=== PATIENT | male | born 1960 | race Caucasian/White ===

== ENCOUNTER 2017-09-09 20:16 | Inpatient (IN) | payer OTHER ==
[~2017-09-09] VITALS: Ht 170.2 cm; Wt 100.0 kg
[~2017-09-09 20:16] MED LIST: ETOMIDATE 20 MG INJ ONE; ROCURONIUM 50 MG INJ ONE
[2017-09-09 20:20] VITALS: Ht 170.2 cm; Wt 100.0 kg
--- NOTE | 2017-09-09 20:26 | ERD ---
ER Documentation Chief Complaint Chief Complaint Altered level consciousness HPI The patient is a 57-year-old male, presenting to the ER because of sudden onset of altered level consciousness, witnessed by the family who called 911. EMS was called our our 195 hour, when paramedics arrived, patient had a GCS of 3, he was immediately transported to the emergency department. He is obtunded, unable to protect his airway. He was intubated immediately with any difficulty on first attempt. The history was not obtained from the daughter who was at the bedside. According to her, he does not have any medical history, does not have any surgery, does not take any medication ROS All systems reviewed and are negative except as per history of present illness. Medications Home Meds No Active Prescriptions or Reported Meds Allergies Allergies: Coded Allergies: No Known Allergy (Unverified , 09/09/17) Physical Exam Vitals Vital Signs Date Time Temp Pulse Resp B/P Pulse Ox O2 Delivery O2 Flow Rate FiO2 09/09/17 23:09 106 20 99 50 09/09/17 22:45 112 21 145/89 99 Mechanical Ventilator 09/09/17 21:59 85 26 100 50 09/09/17 21:45 76 23 245/109 100 Mechanical Ventilator 09/09/17 20:55 79 20 100 100 09/09/17 20:45 81 20 232/161 100 Mechanical Ventilator 09/09/17 20:20 81 16 240/108 80 Physical Exam Const: Severe acute distress. Head: Atraumatic. Eyes: Normal Conjunctiva.The pupils are sluggishly reactive to light, no nystagmus ENT: Normal External Ears, Nose and Mouth. Neck: Full range of motion. No meningismus. Resp: Clear to auscultation bilaterally. Cardio: Regular rate and rhythm. Abd: Soft, non distended, normal bowel sounds, non tender. Skin: No petechiae or rashes. Back: No midline or flank tenderness. Ext: No cyanosis, or edema. Neur: Unable to obtain due to his condition Psych: Unable to obtain due to his condition Result Diagram: 09/09/17209909/09/17 2100 Results 24 hrs Laboratory Tests Test 09/09/17 20:22 09/09/17 21:00 09/09/17 21:30 Bedside Glucose 199mg/dL White Blood Count 11.910^3/ul Red Blood Count 4.8010^6/ul Hemoglobin 15.5g/dl Hematocrit 43.9% Mean Corpuscular Volume 91.5fl Mean Corpuscular Hemoglobin 32.3pg Mean Corpuscular Hemoglobin Concent 35.3g/dl Red Cell Distribution Width 12.2% Platelet Count 64510^3/UL Mean Platelet Volume 11.1fl Neutrophils % 54.5% Lymphocytes % 37.0% Monocytes % 6.0% Eosinophils % 1.9% Basophils % 0.3% Nucleated Red Blood Cells % 0.0/100WBC Neutrophils # 6.510^3/ul Lymphocytes # 4.410^3/ul Monocytes # 0.710^3/ul Eosinophils # 0.210^3/ul Basophils # 0.010^3/ul Nucleated Red Blood Cells # 0.010^3/ul Prothrombin Time 12.2Sec Prothrombin Time Ratio 1.0 INR International Normalized Ratio 0.91 Activated Partial Thromboplast Time 24.1Sec Sodium Level 141mmol/L Potassium Level 3.0mmol/L Chloride Level 99mmol/L Carbon Dioxide Level 24mmol/L Anion Gap 21 Blood Urea Nitrogen 12mg/dl Creatinine 0.85mg/dl Glucose Level 237mg/dl Hemoglobin A1c 7.6% Calcium Level 8.5mg/dl Troponin I < 0.012ng/ml Blood Gas Specimen Source Blood arterial Arterial Blood Date Drawn 09/09/2017 9:15:33 PM Arterial Blood pH (Temp corrected) 7.446 Arterial Blood pCO2 (Temp correct) 36.1mmhg Arterial Blood pO2 (Temp corrected) 342.4mmHG Arterial Blood HCO3 24.3mmol/L Arterial Blood Base Excess 0.7mmol/L Arterial Blood Oxygen Saturation 99.6mmHG Chadd Test ACCEPTAB Arterial Blood Gas Puncture Site Right Radial Arterial Blood Carboxyhemoglobin 0% Arterial Blood Methemoglobin 0.5% Blood Gas A-a O2 Differential 334.5mmHg Oxyhemoglobin Percent 99.1% Total Hemoglobin 16.5g/dl Blood Gas Temperature 37.0C Blood Gas Respiration Rate 20.0 Blood Gas Actual Respiration Rate 25 Blood Gas Modality VENT - AC FiO2 100.0% Blood Gas Tidal Volume 500.0mL Blood Gas Low PEEP Setting 5.0cmH2O Blood Gas Notified Whom MA Blood Gas Notified Time 09/09/2017 9:34:21 PM Current Medications Medications (Trade) Dose Ordered Sig/Isabell Route PRN Reason Start Time Stop Time Status Last Admin Dose Admin Mannitol 50 gm 50 gm ONCE ONCE IV* 09/09/17 21:00 09/09/17 21:05 DC 09/09/17 21:40 Levetiracetam 100 ml @ 400 mls/hr ONCE ONCE IVPB 09/09/17 21:00 09/09/17 21:14 DC 09/09/17 21:42 Nicardipine HCl 200 ml @ 50 mls/hr TITRATE IV 09/09/17 21:30 09/09/17 21:53 Mannitol (Mannitol 20%) 250 ml @ 0 mls/hr Q0M IV 09/09/17 21:30 09/09/17 22:14 DC Mannitol 25 gm 25 gm ONCE ONCE IV* 09/09/17 21:30 09/09/17 21:31 DC Propofol 100 ml @ ud STK-MED ONCE .ROUTE 09/09/17 22:04 09/09/17 22:05 DC Mannitol (Mannitol 20%) 125 ml @ 0 mls/hr Q0M IV 09/09/17 22:30 09/09/17 23:30 DC Lidocaine (Xylocaine 1% (Mdv) 20 ml) 20 ml STK-MED ONCE .ROUTE 09/09/17 22:11 09/09/17 22:12 DC Lidocaine/ Epinephrine 20 ml 20 ml ONCE ONCE INJ 09/09/17 22:30 09/09/17 22:31 DC Potassium Chloride 250 ml @ 62.5 mls/hr ONCE ONCE IVPB 09/09/17 23:00 09/10/17 02:59 Potassium Chloride 20 meq/ Sodium Chloride 110 ml @ 55 mls/hr ONCE ONCE IVPB 09/09/17 23:00 09/10/17 00:59 09/09/17 23:52 Sodium Chloride (NS) 1,000 ml @ 70 mls/hr [id number] IV 09/09/17 23:12 Ondansetron HCl (Zofran Inj) 4 mg Q6H PRN IV NAUSEA AND/OR VOMITING 09/09/17 23:30 Acetaminophen (Tylenol Supp) 650 mg Q4H PRN GA PAIN LEVEL 1-3 OR FEVER 09/09/17 23:30 Pantoprazole 40 mg 40 mg DAILY@06 IV 09/10/17 06:00 Nicardipine HCl/ Sodium Chloride (Cardene Iv/NS) 250 ml @ 50 mls/hr PER PROTOCOL IV 09/09/17 23:30 Miscellaneous Information (* Miscellaneous Pharmacy Order) Discontinue current oral sulfonylur... ONCE ONCE XX 09/09/17 23:30 09/09/17 23:46 DC Diagnostic Test (Pha) (Accu-Chek) 1 ea 02 XX 09/10/17 02:00 Miscellaneous Information (* Miscellaneous Pharmacy Order) HYPOGLYCEMIA PROTOCOL w... ONCE ONCE XX 09/09/17 23:30 09/09/17 23:46 DC Insulin Aspart (Novolog Insulin Pen) NOVOLOG *MILD* ALGORI... Q4 SC 09/10/17 01:00 Miscellaneous Information (* Miscellaneous Pharmacy Order) Discontinue all previ... ONCE ONCE XX 09/09/17 23:30 09/09/17 23:46 DC Miscellaneous Information 1 ea NOTE XX 09/09/17 23:45 Glucose (Glutose) 15 gm Q15M PRN PO DECREASED GLUCOSE 09/09/17 23:45 Glucose (Glutose) 22.5 gm Q15M PRN PO DECREASED GLUCOSE 09/09/17 23:45 Dextrose (D50w Syringe) 25 ml Q15M PRN IV DECREASED GLUCOSE 09/09/17 23:45 Dextrose (D50w Syringe) 50 ml Q15M PRN IV DECREASED GLUCOSE 09/09/17 23:45 Glucagon (Glucagen) 1 mg Q15M PRN IM DECREASED GLUCOSE 09/09/17 23:45 Glucose 15 gm 15 gm Q15M PRN BUCCAL DECREASED GLUCOSE 09/09/17 23:45 Potassium Chloride/Dextrose/ Sod Cl (D5-NS + KCl 20 Meq) 1,000 ml @ 100 mls/hr Q10H IV 09/10/17 00:00 Procedures/[place] [id number] Radiology Main Line: [phone] DIAGNOSTIC IMAGING REPORT Patient: DAMIEN BARROW : 1960 Age: 57 Sex: M MR #: [id number] DOS: 09/09/172020 Ordering MD: AJITH EDMONDS MD Location: E/R Room/Bed: PROCEDURE: XR Chest. CLINICAL INDICATION: Shortness of breath. Cerebrovascular accident. Code stroke. TECHNIQUE: Single frontal view. COMPARISON: None. FINDINGS: There is mild atelectasis at the left lung base. The lungs are otherwise clear. The heart is enlarged. There is calcification in the aorta consistent with atherosclerosis. There is no pleural effusion. There is no pneumothorax. IMPRESSION: 1. Mild atelectasis at the left lung base. 2. Cardiomegaly and atherosclerosis. 3. Otherwise unremarkable chest radiograph. RPTAT: QQ .Vel Kong MD, MD Date Time Electronically viewed and signed by .Vel Kong MD, MD on 09/09/2017 21:21 .R/ CC: AJITH EDMONDS MD [place] [id number] Radiology Main Line: [phone] DIAGNOSTIC IMAGING REPORT Patient: DAMIEN BARROW : 1960 Age: 57 Sex: M MR #: [id number] DOS: 09/09/172020 Ordering MD: AJITH EDMONDS MD Location: E/R Room/Bed: PROCEDURE: CT Brain without contrast. CLINICAL INDICATION: Focal neurological deficit. TECHNIQUE: A CT of the brain was performed on a multislice detector CT scanner utilizing axial sections from the skull base through the vertex without contrast. Images were reviewed on a high-resolution PACS workstation. Exam CTDlvol = 43 mGy and DLP = 859 mGy-cm. One of the following 3 dose reduction techniques were used: Automated exposure control; adjustment of the mA and/or kV according to patient size; or use of iterative reconstruction technique. COMPARISON: None available FINDINGS: There is a 4.3 x 4.2 x 4.5 cm hyperdense acute intraparenchymal hemorrhage centered in the right thalamus and basal ganglia. There is surrounding edema. Large amount of extension into the right lateral ventricle. Additional intraventricular hemorrhage extends into the left lateral ventricle, third ventricle and fourth ventricle. There is mild hydrocephalus. There is diffuse loss of the cerebral sulci compatible with increased fracture. There is 9 mm of localized midline shift at the level thalamus adjacent to the hematoma. Basilar cisterns are grossly intact. There is otherwise age appropriate generalized atrophy. Visualized paranasal sinuses are clear. IMPRESSION: 1. Large acute intraparenchymal hemorrhage centered in the right thalamus and basal ganglia surrounding edema. 2. Associated mass effect with generalized segments of the cerebral sulci. 3. Localize 9 mm of [id number] midline shift at the level of the thalamus/ third ventricle. 4. Diffuse intraventricular hemorrhage greatest in the right lateral ventricle. Mild hydrocephalus. Findings reported to Dr. Mckay on 09/09/2017 8:40:46 PM. RPTAT: HMVK .Lam Menendez MD, MD Date Time Electronically viewed and signed by .Lam Menendez MD, MD on 09/09/2017 20:44 .K/ CC: AJITH EDMONDS MD [place] [address] Radiology Main Line: [phone] DIAGNOSTIC IMAGING REPORT Patient: DAMIEN BARROW : 1960 Age: 57 Sex: M [id number]: 09/09/172047 Ordering MD: LAM MCKAY MD Location: E/R Room/Bed: PROCEDURE: CTA Head. CLINICAL INDICATION: Intracranial hemorrhage TECHNIQUE: CTA of the head was obtained with 1 mm axial images. Sagittal and coronal reformations and MIPs were provided. The administered radiation dose was CTDI vol = 54 mGy, DLP = 765 mGy-cm. Images were obtained prior following the intravenous contrast administration of 115 cc Visipaque 320 contrast. Coronal and sagittal as well as maximal intensity projection reformations were obtained. One or more of the following dose reduction techniques were used: automated exposure control, adjustment of the mA and/or kV according to patient size and/or use of iterative reconstruction technique. COMPARISON: There are no similar studies submitted for comparison. FINDINGS: CTA head: Carotid arteries: Some atherosclerotic calcification is noted along the right carotid siphon without significant narrowing. Anterior cerebral arteries: Unremarkable. Middle cerebral arteries: Unremarkable. Posterior cerebral arteries: Unremarkable. Anterior communicating artery: Present. Posterior communicating arteries: Patent on the left. Not definitely seen on the right. Basilar artery: Unremarkable. Vertebral arteries: The right distal vertebral artery is small in caliber and hypoplastic. Vertebral artery dominance: Left Aneurysm: No aneurysm is identified. Venous sinuses: Unremarkable. A few small curvilinear foci of enhancement are seen in the right temporal lobe in the area of the hemorrhage. Hemorrhage is grossly unchanged compared to the earlier noncontrast head CT. IMPRESSION: No evidence of aneurysm or intracranial arterial stenosis. Curvilinear foci of enhancement within the area of the large intraparenchymal hemorrhage. Underlying vascular lesion cannot be excluded. RPTAT: HIKT .Shane Lopez MD, MD Date Time Electronically viewed and signed by .Shane Lopez MD, MD on 09/09/2017 21:42 .T/ CC: LAM MCKAY MD EKG: Read by emergency physician Rate/Rhythm: Normal Sinus Rhythm 74 beats/min QRS, ST, T-waves: No ST elevation, no T inversion, LVH Impression: Normal EKG MEDICAL MAKING DECISION: Patient is a 57-year-old male, presenting to the ER because of acute ALOC, he was found to have acute intra-parenchymal hemorrhage, acute accelerated acute hypertensive crisis, acute hypokalemia. He was intubated immediately with any difficulty He was treated with nasogastric tube, Conti catheter, Keppra 500 mg IV, Mannitol 75g IV after discussing with the on-call neurosurgeon Dr. Montelongo, however he only received mannitol 50 g IV, the remainder Mannitol 25 g was canceled by Dr. Montelongo. He was treated with potassium chloride 60 mg IV due to acute hypokalemia, Cardene drip for acute hypertensive crisis Consultation: I discussed the patient with Dr. Henriquez at 8:45 PM, who came to the ER and did the ventriculostomy for the patient emergently Critical Care: Time: 35 minutes excluding all billable procedures. Treatments/Evaluations: Close monitoring and treatment of unstable vital signs, cardiorespiratory, and neurologic status, while maintaining tight balance of fluid, respiratory, and cardiac interventions. Endotracheal Intubation by me: Pre assessment performed. See preceding note for details. Pre-oxygenation performed with 100% oxygen RSI: Performed w/o complication or hypoxic events. Medications as ordered. Blade: Mac 4 ET Tube: 7.5 cm Depth: 23cm at the lip Intubation confirmed by colorimetric CO2, equal breath sounds, quiet over the stomach. Departure Diagnosis: Primary Impression: Intraparenchymal hemorrhage of brain Additional Impressions: Hypertensive crisis Hypokalemia Hyperglycemia Condition: Critical Comments I discussed the findings with the patient. I discussed the patient with the on- call hospitalist Dr. Velasquez at 9:15 PM. who was made aware of the lab, the treatment, the patient condition. The patient is admitted to ICU Disclaimer: Inadvertent spelling and grammatical errors are likely due to EHR/ dictation software use and do not reflect on the overall quality of patient care. Also, please note that the electronic time recorded on this note does not necessarily reflect the actual time of the patient encounter. LAM MCKAY MD Sep 09, 2017 20:26
--- NOTE | 2017-09-09 20:26 | ERD ---
ER Documentation Chief Complaint Chief Complaint Altered level consciousness HPI The patient is a 57-year-old male, presenting to the ER because of sudden onset of altered level consciousness, witnessed by the family who called 911. EMS was called our our 195 hour, when paramedics arrived, patient had a GCS of 3, he was immediately transported to the emergency department. He is obtunded, unable to protect his airway. He was intubated immediately with any difficulty on first attempt. The history was not obtained from the daughter who was at the bedside. According to her, he does not have any medical history, does not have any surgery, does not take any medication ROS All systems reviewed and are negative except as per history of present illness. Medications Home Meds No Active Prescriptions or Reported Meds Allergies Allergies: Coded Allergies: No Known Allergy (Unverified , 09/09/17) Physical Exam Vitals Vital Signs Date Time Temp Pulse Resp B/P Pulse Ox O2 Delivery O2 Flow Rate FiO2 09/09/17 23:09 106 20 99 50 09/09/17 22:45 112 21 145/89 99 Mechanical Ventilator 09/09/17 21:59 85 26 100 50 09/09/17 21:45 76 23 245/109 100 Mechanical Ventilator 09/09/17 20:55 79 20 100 100 09/09/17 20:45 81 20 232/161 100 Mechanical Ventilator 09/09/17 20:20 81 16 240/108 80 Physical Exam Const: Severe acute distress. Head: Atraumatic. Eyes: Normal Conjunctiva.The pupils are sluggishly reactive to light, no nystagmus ENT: Normal External Ears, Nose and Mouth. Neck: Full range of motion. No meningismus. Resp: Clear to auscultation bilaterally. Cardio: Regular rate and rhythm. Abd: Soft, non distended, normal bowel sounds, non tender. Skin: No petechiae or rashes. Back: No midline or flank tenderness. Ext: No cyanosis, or edema. Neur: Unable to obtain due to his condition Psych: Unable to obtain due to his condition Result Diagram: 09/09/17209909/09/17 2100 Results 24 hrs Laboratory Tests Test 09/09/17 20:22 09/09/17 21:00 09/09/17 21:30 Bedside Glucose 199mg/dL White Blood Count 11.910^3/ul Red Blood Count 4.8010^6/ul Hemoglobin 15.5g/dl Hematocrit 43.9% Mean Corpuscular Volume 91.5fl Mean Corpuscular Hemoglobin 32.3pg Mean Corpuscular Hemoglobin Concent 35.3g/dl Red Cell Distribution Width 12.2% Platelet Count 90631^3/UL Mean Platelet Volume 11.1fl Neutrophils % 54.5% Lymphocytes % 37.0% Monocytes % 6.0% Eosinophils % 1.9% Basophils % 0.3% Nucleated Red Blood Cells % 0.0/100WBC Neutrophils # 6.510^3/ul Lymphocytes # 4.410^3/ul Monocytes # 0.710^3/ul Eosinophils # 0.210^3/ul Basophils # 0.010^3/ul Nucleated Red Blood Cells # 0.010^3/ul Prothrombin Time 12.2Sec Prothrombin Time Ratio 1.0 INR International Normalized Ratio 0.91 Activated Partial Thromboplast Time 24.1Sec Sodium Level 141mmol/L Potassium Level 3.0mmol/L Chloride Level 99mmol/L Carbon Dioxide Level 24mmol/L Anion Gap 21 Blood Urea Nitrogen 12mg/dl Creatinine 0.85mg/dl Glucose Level 237mg/dl Hemoglobin A1c 7.6% Calcium Level 8.5mg/dl Troponin I < 0.012ng/ml Blood Gas Specimen Source Blood arterial Arterial Blood Date Drawn 09/09/2017 9:15:33 PM Arterial Blood pH (Temp corrected) 7.446 Arterial Blood pCO2 (Temp correct) 36.1mmhg Arterial Blood pO2 (Temp corrected) 342.4mmHG Arterial Blood HCO3 24.3mmol/L Arterial Blood Base Excess 0.7mmol/L Arterial Blood Oxygen Saturation 99.6mmHG Chadd Test ACCEPTAB Arterial Blood Gas Puncture Site Right Radial Arterial Blood Carboxyhemoglobin 0% Arterial Blood Methemoglobin 0.5% Blood Gas A-a O2 Differential 334.5mmHg Oxyhemoglobin Percent 99.1% Total Hemoglobin 16.5g/dl Blood Gas Temperature 37.0C Blood Gas Respiration Rate 20.0 Blood Gas Actual Respiration Rate 25 Blood Gas Modality VENT - AC FiO2 100.0% Blood Gas Tidal Volume 500.0mL Blood Gas Low PEEP Setting 5.0cmH2O Blood Gas Notified Whom MA Blood Gas Notified Time 09/09/2017 9:34:21 PM Current Medications Medications (Trade) Dose Ordered Sig/Isabell Route PRN Reason Start Time Stop Time Status Last Admin Dose Admin Mannitol 50 gm 50 gm ONCE ONCE IV* 09/09/17 21:00 09/09/17 21:05 DC 09/09/17 21:40 Levetiracetam 100 ml @ 400 mls/hr ONCE ONCE IVPB 09/09/17 21:00 09/09/17 21:14 DC 09/09/17 21:42 Nicardipine HCl 200 ml @ 50 mls/hr TITRATE IV 09/09/17 21:30 09/09/17 21:53 Mannitol (Mannitol 20%) 250 ml @ 0 mls/hr Q0M IV 09/09/17 21:30 09/09/17 22:14 DC Mannitol 25 gm 25 gm ONCE ONCE IV* 09/09/17 21:30 09/09/17 21:31 DC Propofol 100 ml @ ud STK-MED ONCE .ROUTE 09/09/17 22:04 09/09/17 22:05 DC Mannitol (Mannitol 20%) 125 ml @ 0 mls/hr Q0M IV 09/09/17 22:30 09/09/17 23:30 DC Lidocaine (Xylocaine 1% (Mdv) 20 ml) 20 ml STK-MED ONCE .ROUTE 09/09/17 22:11 09/09/17 22:12 DC Lidocaine/ Epinephrine 20 ml 20 ml ONCE ONCE INJ 09/09/17 22:30 09/09/17 22:31 DC Potassium Chloride 250 ml @ 62.5 mls/hr ONCE ONCE IVPB 09/09/17 23:00 09/10/17 02:59 Potassium Chloride 20 meq/ Sodium Chloride 110 ml @ 55 mls/hr ONCE ONCE IVPB 09/09/17 23:00 09/10/17 00:59 09/09/17 23:52 Sodium Chloride (NS) 1,000 ml @ 70 mls/hr [id number] IV 09/09/17 23:12 Ondansetron HCl (Zofran Inj) 4 mg Q6H PRN IV NAUSEA AND/OR VOMITING 09/09/17 23:30 Acetaminophen (Tylenol Supp) 650 mg Q4H PRN AR PAIN LEVEL 1-3 OR FEVER 09/09/17 23:30 Pantoprazole 40 mg 40 mg DAILY@06 IV 09/10/17 06:00 Nicardipine HCl/ Sodium Chloride (Cardene Iv/NS) 250 ml @ 50 mls/hr PER PROTOCOL IV 09/09/17 23:30 Miscellaneous Information (* Miscellaneous Pharmacy Order) Discontinue current oral sulfonylur... ONCE ONCE XX 09/09/17 23:30 09/09/17 23:46 DC Diagnostic Test (Pha) (Accu-Chek) 1 ea 02 XX 09/10/17 02:00 Miscellaneous Information (* Miscellaneous Pharmacy Order) HYPOGLYCEMIA PROTOCOL w... ONCE ONCE XX 09/09/17 23:30 09/09/17 23:46 DC Insulin Aspart (Novolog Insulin Pen) NOVOLOG *MILD* ALGORI... Q4 SC 09/10/17 01:00 Miscellaneous Information (* Miscellaneous Pharmacy Order) Discontinue all previ... ONCE ONCE XX 09/09/17 23:30 09/09/17 23:46 DC Miscellaneous Information 1 ea NOTE XX 09/09/17 23:45 Glucose (Glutose) 15 gm Q15M PRN PO DECREASED GLUCOSE 09/09/17 23:45 Glucose (Glutose) 22.5 gm Q15M PRN PO DECREASED GLUCOSE 09/09/17 23:45 Dextrose (D50w Syringe) 25 ml Q15M PRN IV DECREASED GLUCOSE 09/09/17 23:45 Dextrose (D50w Syringe) 50 ml Q15M PRN IV DECREASED GLUCOSE 09/09/17 23:45 Glucagon (Glucagen) 1 mg Q15M PRN IM DECREASED GLUCOSE 09/09/17 23:45 Glucose 15 gm 15 gm Q15M PRN BUCCAL DECREASED GLUCOSE 09/09/17 23:45 Potassium Chloride/Dextrose/ Sod Cl (D5-NS + KCl 20 Meq) 1,000 ml @ 100 mls/hr Q10H IV 09/10/17 00:00 Procedures/[place] [id number] Radiology Main Line: [phone] DIAGNOSTIC IMAGING REPORT Patient: DAMIEN BARROW : 1960 Age: 57 Sex: M MR #: [id number] DOS: 09/09/172020 Ordering MD: AJITH EDMONDS MD Location: E/R Room/Bed: PROCEDURE: XR Chest. CLINICAL INDICATION: Shortness of breath. Cerebrovascular accident. Code stroke. TECHNIQUE: Single frontal view. COMPARISON: None. FINDINGS: There is mild atelectasis at the left lung base. The lungs are otherwise clear. The heart is enlarged. There is calcification in the aorta consistent with atherosclerosis. There is no pleural effusion. There is no pneumothorax. IMPRESSION: 1. Mild atelectasis at the left lung base. 2. Cardiomegaly and atherosclerosis. 3. Otherwise unremarkable chest radiograph. RPTAT: QQ .Vel Kong MD, MD Date Time Electronically viewed and signed by .Vel Kong MD, MD on 09/09/2017 21:21 .R/ CC: AJITH EDMONDS MD [place] [id number] Radiology Main Line: [phone] DIAGNOSTIC IMAGING REPORT Patient: DAMIEN BARROW : 1960 Age: 57 Sex: M MR #: [id number] DOS: 09/09/172020 Ordering MD: AJITH EDMONDS MD Location: E/R Room/Bed: PROCEDURE: CT Brain without contrast. CLINICAL INDICATION: Focal neurological deficit. TECHNIQUE: A CT of the brain was performed on a multislice detector CT scanner utilizing axial sections from the skull base through the vertex without contrast. Images were reviewed on a high-resolution PACS workstation. Exam CTDlvol = 43 mGy and DLP = 859 mGy-cm. One of the following 3 dose reduction techniques were used: Automated exposure control; adjustment of the mA and/or kV according to patient size; or use of iterative reconstruction technique. COMPARISON: None available FINDINGS: There is a 4.3 x 4.2 x 4.5 cm hyperdense acute intraparenchymal hemorrhage centered in the right thalamus and basal ganglia. There is surrounding edema. Large amount of extension into the right lateral ventricle. Additional intraventricular hemorrhage extends into the left lateral ventricle, third ventricle and fourth ventricle. There is mild hydrocephalus. There is diffuse loss of the cerebral sulci compatible with increased fracture. There is 9 mm of localized midline shift at the level thalamus adjacent to the hematoma. Basilar cisterns are grossly intact. There is otherwise age appropriate generalized atrophy. Visualized paranasal sinuses are clear. IMPRESSION: 1. Large acute intraparenchymal hemorrhage centered in the right thalamus and basal ganglia surrounding edema. 2. Associated mass effect with generalized segments of the cerebral sulci. 3. Localize 9 mm of [id number] midline shift at the level of the thalamus/ third ventricle. 4. Diffuse intraventricular hemorrhage greatest in the right lateral ventricle. Mild hydrocephalus. Findings reported to Dr. Mckay on 09/09/2017 8:40:46 PM. RPTAT: HMVK .Lam Menendez MD, MD Date Time Electronically viewed and signed by .Lam Menendez MD, MD on 09/09/2017 20:44 .K/ CC: AJITH EDMONDS MD [place] [id number] Radiology Main Line: [phone] DIAGNOSTIC IMAGING REPORT Patient: DAMIEN BARROW : 1960 Age: 57 Sex: M MR #: [id number] [facility] #: [id number] DOS: 09/09/172047 Ordering MD: LAM MCKAY MD Location: E/R Room/Bed: PROCEDURE: CTA Head. CLINICAL INDICATION: Intracranial hemorrhage TECHNIQUE: CTA of the head was obtained with 1 mm axial images. Sagittal and coronal reformations and MIPs were provided. The administered radiation dose was CTDI vol = 54 mGy, DLP = 765 mGy-cm. Images were obtained prior following the intravenous contrast administration of 115 cc Visipaque 320 contrast. Coronal and sagittal as well as maximal intensity projection reformations were obtained. One or more of the following dose reduction techniques were used: automated exposure control, adjustment of the mA and/or kV according to patient size and/or use of iterative reconstruction technique. COMPARISON: There are no similar studies submitted for comparison. FINDINGS: CTA head: Carotid arteries: Some atherosclerotic calcification is noted along the right carotid siphon without significant narrowing. Anterior cerebral arteries: Unremarkable. Middle cerebral arteries: Unremarkable. Posterior cerebral arteries: Unremarkable. Anterior communicating artery: Present. Posterior communicating arteries: Patent on the left. Not definitely seen on the right. Basilar artery: Unremarkable. Vertebral arteries: The right distal vertebral artery is small in caliber and hypoplastic. Vertebral artery dominance: Left Aneurysm: No aneurysm is identified. Venous sinuses: Unremarkable. A few small curvilinear foci of enhancement are seen in the right temporal lobe in the area of the hemorrhage. Hemorrhage is grossly unchanged compared to the earlier noncontrast head CT. IMPRESSION: No evidence of aneurysm or intracranial arterial stenosis. Curvilinear foci of enhancement within the area of the large intraparenchymal hemorrhage. Underlying vascular lesion cannot be excluded. RPTAT: HIKT .Shane Lopez MD, MD Date Time Electronically viewed and signed by .Shane Lopez MD, MD on 09/09/2017 21:42 .T/ CC: LAM MCKAY MD EKG: Read by emergency physician Rate/Rhythm: Normal Sinus Rhythm 74 beats/min QRS, ST, T-waves: No ST elevation, no T inversion, LVH Impression: Normal EKG MEDICAL MAKING DECISION: Patient is a 57-year-old male, presenting to the ER because of acute ALOC, he was found to have acute intra-parenchymal hemorrhage, acute accelerated acute hypertensive crisis, acute hypokalemia. He was intubated immediately with any difficulty He was treated with nasogastric tube, Conti catheter, Keppra 500 mg IV, Mannitol 75g IV after discussing with the on-call neurosurgeon Dr. Montelongo, however he only received mannitol 50 g IV, the remainder Mannitol 25 g was canceled by Dr. Montelongo. He was treated with potassium chloride 60 mg IV due to acute hypokalemia, Cardene drip for acute hypertensive crisis Consultation: I discussed the patient with Dr. Henriquez at 8:45 PM, who came to the ER and did the ventriculostomy for the patient emergently Critical Care: Time: 35 minutes excluding all billable procedures. Treatments/Evaluations: Close monitoring and treatment of unstable vital signs, cardiorespiratory, and neurologic status, while maintaining tight balance of fluid, respiratory, and cardiac interventions. Endotracheal Intubation by me: Pre assessment performed. See preceding note for details. Pre-oxygenation performed with 100% oxygen RSI: Performed w/o complication or hypoxic events. Medications as ordered. Blade: Mac 4 ET Tube: 7.5 cm Depth: 23cm at the lip Intubation confirmed by colorimetric CO2, equal breath sounds, quiet over the stomach. Departure Diagnosis: Primary Impression: Intraparenchymal hemorrhage of brain Additional Impressions: Hypertensive crisis Hypokalemia Hyperglycemia Condition: Critical Comments I discussed the findings with the patient. I discussed the patient with the on- call hospitalist Dr. Velasquez at 9:15 PM. who was made aware of the lab, the treatment, the patient condition. The patient is admitted to ICU Disclaimer: Inadvertent spelling and grammatical errors are likely due to EHR/ dictation software use and do not reflect on the overall quality of patient care. Also, please note that the electronic time recorded on this note does not necessarily reflect the actual time of the patient encounter. LAM MCKAY MD Sep 09, 2017 20:26
--- NOTE | 2017-09-09 20:26 | ERD ---
ER Documentation Chief Complaint Chief Complaint Altered level consciousness HPI The patient is a 57-year-old male, presenting to the ER because of sudden onset of altered level consciousness, witnessed by the family who called 911. EMS was called our our 195 hour, when paramedics arrived, patient had a GCS of 3, he was immediately transported to the emergency department. He is obtunded, unable to protect his airway. He was intubated immediately with any difficulty on first attempt. The history was not obtained from the daughter who was at the bedside. According to her, he does not have any medical history, does not have any surgery, does not take any medication ROS All systems reviewed and are negative except as per history of present illness. Medications Home Meds No Active Prescriptions or Reported Meds Allergies Allergies: Coded Allergies: No Known Allergy (Unverified , 09/09/17) Physical Exam Vitals Vital Signs Date Time Temp Pulse Resp B/P Pulse Ox O2 Delivery O2 Flow Rate FiO2 09/09/17 23:09 106 20 99 50 09/09/17 22:45 112 21 145/89 99 Mechanical Ventilator 09/09/17 21:59 85 26 100 50 09/09/17 21:45 76 23 245/109 100 Mechanical Ventilator 09/09/17 20:55 79 20 100 100 09/09/17 20:45 81 20 232/161 100 Mechanical Ventilator 09/09/17 20:20 81 16 240/108 80 Physical Exam Const: Severe acute distress. Head: Atraumatic. Eyes: Normal Conjunctiva.The pupils are sluggishly reactive to light, no nystagmus ENT: Normal External Ears, Nose and Mouth. Neck: Full range of motion. No meningismus. Resp: Clear to auscultation bilaterally. Cardio: Regular rate and rhythm. Abd: Soft, non distended, normal bowel sounds, non tender. Skin: No petechiae or rashes. Back: No midline or flank tenderness. Ext: No cyanosis, or edema. Neur: Unable to obtain due to his condition Psych: Unable to obtain due to his condition Result Diagram: 09/09/17209909/09/17 2100 Results 24 hrs Laboratory Tests Test 09/09/17 20:22 09/09/17 21:00 09/09/17 21:30 Bedside Glucose 199mg/dL White Blood Count 11.910^3/ul Red Blood Count 4.8010^6/ul Hemoglobin 15.5g/dl Hematocrit 43.9% Mean Corpuscular Volume 91.5fl Mean Corpuscular Hemoglobin 32.3pg Mean Corpuscular Hemoglobin Concent 35.3g/dl Red Cell Distribution Width 12.2% Platelet Count 33337^3/UL Mean Platelet Volume 11.1fl Neutrophils % 54.5% Lymphocytes % 37.0% Monocytes % 6.0% Eosinophils % 1.9% Basophils % 0.3% Nucleated Red Blood Cells % 0.0/100WBC Neutrophils # 6.510^3/ul Lymphocytes # 4.410^3/ul Monocytes # 0.710^3/ul Eosinophils # 0.210^3/ul Basophils # 0.010^3/ul Nucleated Red Blood Cells # 0.010^3/ul Prothrombin Time 12.2Sec Prothrombin Time Ratio 1.0 INR International Normalized Ratio 0.91 Activated Partial Thromboplast Time 24.1Sec Sodium Level 141mmol/L Potassium Level 3.0mmol/L Chloride Level 99mmol/L Carbon Dioxide Level 24mmol/L Anion Gap 21 Blood Urea Nitrogen 12mg/dl Creatinine 0.85mg/dl Glucose Level 237mg/dl Hemoglobin A1c 7.6% Calcium Level 8.5mg/dl Troponin I < 0.012ng/ml Blood Gas Specimen Source Blood arterial Arterial Blood Date Drawn 09/09/2017 9:15:33 PM Arterial Blood pH (Temp corrected) 7.446 Arterial Blood pCO2 (Temp correct) 36.1mmhg Arterial Blood pO2 (Temp corrected) 342.4mmHG Arterial Blood HCO3 24.3mmol/L Arterial Blood Base Excess 0.7mmol/L Arterial Blood Oxygen Saturation 99.6mmHG Chadd Test ACCEPTAB Arterial Blood Gas Puncture Site Right Radial Arterial Blood Carboxyhemoglobin 0% Arterial Blood Methemoglobin 0.5% Blood Gas A-a O2 Differential 334.5mmHg Oxyhemoglobin Percent 99.1% Total Hemoglobin 16.5g/dl Blood Gas Temperature 37.0C Blood Gas Respiration Rate 20.0 Blood Gas Actual Respiration Rate 25 Blood Gas Modality VENT - AC FiO2 100.0% Blood Gas Tidal Volume 500.0mL Blood Gas Low PEEP Setting 5.0cmH2O Blood Gas Notified Whom MA Blood Gas Notified Time 09/09/2017 9:34:21 PM Current Medications Medications (Trade) Dose Ordered Sig/Isabell Route PRN Reason Start Time Stop Time Status Last Admin Dose Admin Mannitol 50 gm 50 gm ONCE ONCE IV* 09/09/17 21:00 09/09/17 21:05 DC 09/09/17 21:40 Levetiracetam 100 ml @ 400 mls/hr ONCE ONCE IVPB 09/09/17 21:00 09/09/17 21:14 DC 09/09/17 21:42 Nicardipine HCl 200 ml @ 50 mls/hr TITRATE IV 09/09/17 21:30 09/09/17 21:53 Mannitol (Mannitol 20%) 250 ml @ 0 mls/hr Q0M IV 09/09/17 21:30 09/09/17 22:14 DC Mannitol 25 gm 25 gm ONCE ONCE IV* 09/09/17 21:30 09/09/17 21:31 DC Propofol 100 ml @ ud STK-MED ONCE .ROUTE 09/09/17 22:04 09/09/17 22:05 DC Mannitol (Mannitol 20%) 125 ml @ 0 mls/hr Q0M IV 09/09/17 22:30 09/09/17 23:30 DC Lidocaine (Xylocaine 1% (Mdv) 20 ml) 20 ml STK-MED ONCE .ROUTE 09/09/17 22:11 09/09/17 22:12 DC Lidocaine/ Epinephrine 20 ml 20 ml ONCE ONCE INJ 09/09/17 22:30 09/09/17 22:31 DC Potassium Chloride 250 ml @ 62.5 mls/hr ONCE ONCE IVPB 09/09/17 23:00 09/10/17 02:59 Potassium Chloride 20 meq/ Sodium Chloride 110 ml @ 55 mls/hr ONCE ONCE IVPB 09/09/17 23:00 09/10/17 00:59 09/09/17 23:52 Sodium Chloride (NS) 1,000 ml @ 70 mls/hr [id number] IV 09/09/17 23:12 Ondansetron HCl (Zofran Inj) 4 mg Q6H PRN IV NAUSEA AND/OR VOMITING 09/09/17 23:30 Acetaminophen (Tylenol Supp) 650 mg Q4H PRN PA PAIN LEVEL 1-3 OR FEVER 09/09/17 23:30 Pantoprazole 40 mg 40 mg DAILY@06 IV 09/10/17 06:00 Nicardipine HCl/ Sodium Chloride (Cardene Iv/NS) 250 ml @ 50 mls/hr PER PROTOCOL IV 09/09/17 23:30 Miscellaneous Information (* Miscellaneous Pharmacy Order) Discontinue current oral sulfonylur... ONCE ONCE XX 09/09/17 23:30 09/09/17 23:46 DC Diagnostic Test (Pha) (Accu-Chek) 1 ea 02 XX 09/10/17 02:00 Miscellaneous Information (* Miscellaneous Pharmacy Order) HYPOGLYCEMIA PROTOCOL w... ONCE ONCE XX 09/09/17 23:30 09/09/17 23:46 DC Insulin Aspart (Novolog Insulin Pen) NOVOLOG *MILD* ALGORI... Q4 SC 09/10/17 01:00 Miscellaneous Information (* Miscellaneous Pharmacy Order) Discontinue all previ... ONCE ONCE XX 09/09/17 23:30 09/09/17 23:46 DC Miscellaneous Information 1 ea NOTE XX 09/09/17 23:45 Glucose (Glutose) 15 gm Q15M PRN PO DECREASED GLUCOSE 09/09/17 23:45 Glucose (Glutose) 22.5 gm Q15M PRN PO DECREASED GLUCOSE 09/09/17 23:45 Dextrose (D50w Syringe) 25 ml Q15M PRN IV DECREASED GLUCOSE 09/09/17 23:45 Dextrose (D50w Syringe) 50 ml Q15M PRN IV DECREASED GLUCOSE 09/09/17 23:45 Glucagon (Glucagen) 1 mg Q15M PRN IM DECREASED GLUCOSE 09/09/17 23:45 Glucose 15 gm 15 gm Q15M PRN BUCCAL DECREASED GLUCOSE 09/09/17 23:45 Potassium Chloride/Dextrose/ Sod Cl (D5-NS + KCl 20 Meq) 1,000 ml @ 100 mls/hr Q10H IV 09/10/17 00:00 Procedures/[place] [id number] Radiology Main Line: [phone] DIAGNOSTIC IMAGING REPORT Patient: DAMIEN BARROW : 1960 Age: 57 Sex: M MR #: [id number] DOS: 09/09/172020 Ordering MD: AJITH EDMONDS MD Location: E/R Room/Bed: PROCEDURE: XR Chest. CLINICAL INDICATION: Shortness of breath. Cerebrovascular accident. Code stroke. TECHNIQUE: Single frontal view. COMPARISON: None. FINDINGS: There is mild atelectasis at the left lung base. The lungs are otherwise clear. The heart is enlarged. There is calcification in the aorta consistent with atherosclerosis. There is no pleural effusion. There is no pneumothorax. IMPRESSION: 1. Mild atelectasis at the left lung base. 2. Cardiomegaly and atherosclerosis. 3. Otherwise unremarkable chest radiograph. RPTAT: QQ .Vel Kong MD, MD Date Time Electronically viewed and signed by .Vel Kong MD, MD on 09/09/2017 21:21 .R/ CC: AJITH EDMONDS MD [place] [address] Radiology Main Line: [phone] DIAGNOSTIC IMAGING REPORT Patient: DAMIEN BARROW : 1960 Age: 57 Sex: M MR #: [id number] DOS: 09/09/172020 Ordering MD: AJITH EDMONDS MD Location: E/R Room/Bed: PROCEDURE: CT Brain without contrast. CLINICAL INDICATION: Focal neurological deficit. TECHNIQUE: A CT of the brain was performed on a multislice detector CT scanner utilizing axial sections from the skull base through the vertex without contrast. Images were reviewed on a high-resolution PACS workstation. Exam CTDlvol = 43 mGy and DLP = 859 mGy-cm. One of the following 3 dose reduction techniques were used: Automated exposure control; adjustment of the mA and/or kV according to patient size; or use of iterative reconstruction technique. COMPARISON: None available FINDINGS: There is a 4.3 x 4.2 x 4.5 cm hyperdense acute intraparenchymal hemorrhage centered in the right thalamus and basal ganglia. There is surrounding edema. Large amount of extension into the right lateral ventricle. Additional intraventricular hemorrhage extends into the left lateral ventricle, third ventricle and fourth ventricle. There is mild hydrocephalus. There is diffuse loss of the cerebral sulci compatible with increased fracture. There is 9 mm of localized midline shift at the level thalamus adjacent to the hematoma. Basilar cisterns are grossly intact. There is otherwise age appropriate generalized atrophy. Visualized paranasal sinuses are clear. IMPRESSION: 1. Large acute intraparenchymal hemorrhage centered in the right thalamus and basal ganglia surrounding edema. 2. Associated mass effect with generalized segments of the cerebral sulci. 3. Localize 9 mm of gbjni-eu-[id number] midline shift at the level of the thalamus/ third ventricle. 4. Diffuse intraventricular hemorrhage greatest in the right lateral ventricle. Mild hydrocephalus. Findings reported to Dr. Mckay on 09/09/2017 8:40:46 PM. RPTAT: HMVK .Lam Menendez MD, MD Date Time Electronically viewed and signed by .Lam Menendez MD, MD on 09/09/2017 20:44 .K/ CC: AJITH EDMONDS MD [place] [address] Radiology Main Line: [phone] DIAGNOSTIC IMAGING REPORT Patient: DAMIEN BARROW : 1960 Age: 57 Sex: M MR #: [id number] [facility]: [id number] DOS: 09/09/172047 Ordering MD: LAM MCKAY MD Location: E/R Room/Bed: PROCEDURE: CTA Head. CLINICAL INDICATION: Intracranial hemorrhage TECHNIQUE: CTA of the head was obtained with 1 mm axial images. Sagittal and coronal reformations and MIPs were provided. The administered radiation dose was CTDI vol = 54 mGy, DLP = 765 mGy-cm. Images were obtained prior following the intravenous contrast administration of 115 cc Visipaque 320 contrast. Coronal and sagittal as well as maximal intensity projection reformations were obtained. One or more of the following dose reduction techniques were used: automated exposure control, adjustment of the mA and/or kV according to patient size and/or use of iterative reconstruction technique. COMPARISON: There are no similar studies submitted for comparison. FINDINGS: CTA head: Carotid arteries: Some atherosclerotic calcification is noted along the right carotid siphon without significant narrowing. Anterior cerebral arteries: Unremarkable. Middle cerebral arteries: Unremarkable. Posterior cerebral arteries: Unremarkable. Anterior communicating artery: Present. Posterior communicating arteries: Patent on the left. Not definitely seen on the right. Basilar artery: Unremarkable. Vertebral arteries: The right distal vertebral artery is small in caliber and hypoplastic. Vertebral artery dominance: Left Aneurysm: No aneurysm is identified. Venous sinuses: Unremarkable. A few small curvilinear foci of enhancement are seen in the right temporal lobe in the area of the hemorrhage. Hemorrhage is grossly unchanged compared to the earlier noncontrast head CT. IMPRESSION: No evidence of aneurysm or intracranial arterial stenosis. Curvilinear foci of enhancement within the area of the large intraparenchymal hemorrhage. Underlying vascular lesion cannot be excluded. RPTAT: HIKT .Shane Lopez MD, MD Date Time Electronically viewed and signed by .Shane Lopez MD, MD on 09/09/2017 21:42 .T/ CC: LAM MCKAY MD EKG: Read by emergency physician Rate/Rhythm: Normal Sinus Rhythm 74 beats/min QRS, ST, T-waves: No ST elevation, no T inversion, LVH Impression: Normal EKG MEDICAL MAKING DECISION: Patient is a 57-year-old male, presenting to the ER because of acute ALOC, he was found to have acute intra-parenchymal hemorrhage, acute accelerated acute hypertensive crisis, acute hypokalemia. He was intubated immediately with any difficulty He was treated with nasogastric tube, Conti catheter, Keppra 500 mg IV, Mannitol 75g IV after discussing with the on-call neurosurgeon Dr. Montelongo, however he only received mannitol 50 g IV, the remainder Mannitol 25 g was canceled by Dr. Montelongo. He was treated with potassium chloride 60 mg IV due to acute hypokalemia, Cardene drip for acute hypertensive crisis Consultation: I discussed the patient with Dr. Henriquez at 8:45 PM, who came to the ER and did the ventriculostomy for the patient emergently Critical Care: Time: 35 minutes excluding all billable procedures. Treatments/Evaluations: Close monitoring and treatment of unstable vital signs, cardiorespiratory, and neurologic status, while maintaining tight balance of fluid, respiratory, and cardiac interventions. Endotracheal Intubation by me: Pre assessment performed. See preceding note for details. Pre-oxygenation performed with 100% oxygen RSI: Performed w/o complication or hypoxic events. Medications as ordered. Blade: Mac 4 ET Tube: 7.5 cm Depth: 23cm at the lip Intubation confirmed by colorimetric CO2, equal breath sounds, quiet over the stomach. Departure Diagnosis: Primary Impression: Intraparenchymal hemorrhage of brain Additional Impressions: Hypertensive crisis Hypokalemia Hyperglycemia Condition: Critical Comments I discussed the findings with the patient. I discussed the patient with the on- call hospitalist Dr. Velasquez at 9:15 PM. who was made aware of the lab, the treatment, the patient condition. The patient is admitted to ICU Disclaimer: Inadvertent spelling and grammatical errors are likely due to EHR/ dictation software use and do not reflect on the overall quality of patient care. Also, please note that the electronic time recorded on this note does not necessarily reflect the actual time of the patient encounter. LAM MCKAY MD Sep 09, 2017 20:26
[2017-09-09] MEDS ORDERED: IODIXANOL LOCM 50 ML BTL ONE (20:30)
[2017-09-09] MEDS ORDERED: IODIXANOL LOCM 100 ML BTL ONE (20:30)
[2017-09-09] MEDS ORDERED: SOD CHLORIDE 0.9% 100 ML ONE (20:30)
--- NOTE | 2017-09-09 20:44 | RADRPT ---
PROCEDURE: CT Brain without contrast. CLINICAL INDICATION: Focal neurological deficit. TECHNIQUE: A CT of the brain was performed on a multislice detector CT scanner utilizing axial sec tions from the skull base through the vertex without contrast. Images were reviewed on a high-resolu [employer] PACS workstation. Exam CTDlvol = 43 mGy and DLP = 859 mGy-cm. One of the following 3 dose red uction techniques were used: Automated exposure control; adjustment of the mA and/or kV according to patient size; or use of iterative reconstruction technique. COMPARISON: None available FINDINGS: There is a 4.3 x 4.2 x 4.5 cm hyperdense acute intraparenchymal hemorrhage centered in the right lui lamus and basal ganglia. There is surrounding edema. Large amount of extension into the right latera l ventricle. Additional intraventricular hemorrhage extends into the left lateral ventricle, third v entricle and fourth ventricle. There is mild hydrocephalus. There is diffuse loss of the cerebral urban lci compatible with increased fracture. There is 9 mm of localized midline shift at the level thalam us adjacent to the hematoma. Basilar cisterns are grossly intact. There is otherwise age appropriate generalized atrophy. Visualized paranasal sinuses are clear. IMPRESSION: 1. Large acute intraparenchymal hemorrhage centered in the right thalamus and basal ganglia surroun ding edema. 2. Associated mass effect with generalized segments of the cerebral sulci. 3. Localize 9 mm of [id number] midline shift at the level of the thalamus/third ventricle. 4. Diffuse intraventricular hemorrhage greatest in the right lateral ventricle. Mild hydrocephalus. Findings reported to Dr. Naylor on 09/09/2017 8:40:46 PM. RPTAT: HMVK .Lam Menendez MD, MD Date Time Electronically viewed and signed by .Lam Menendez MD, MD on 09/09/2017 20:44 .K/
--- NOTE | 2017-09-09 20:44 | RADRPT ---
PROCEDURE: CT Brain without contrast. CLINICAL INDICATION: Focal neurological deficit. TECHNIQUE: A CT of the brain was performed on a multislice detector CT scanner utilizing axial sec tions from the skull base through the vertex without contrast. Images were reviewed on a high-resolu [employer] PACS workstation. Exam CTDlvol = 43 mGy and DLP = 859 mGy-cm. One of the following 3 dose red uction techniques were used: Automated exposure control; adjustment of the mA and/or kV according to patient size; or use of iterative reconstruction technique. COMPARISON: None available FINDINGS: There is a 4.3 x 4.2 x 4.5 cm hyperdense acute intraparenchymal hemorrhage centered in the right lui lamus and basal ganglia. There is surrounding edema. Large amount of extension into the right latera l ventricle. Additional intraventricular hemorrhage extends into the left lateral ventricle, third v entricle and fourth ventricle. There is mild hydrocephalus. There is diffuse loss of the cerebral urban lci compatible with increased fracture. There is 9 mm of localized midline shift at the level thalam us adjacent to the hematoma. Basilar cisterns are grossly intact. There is otherwise age appropriate generalized atrophy. Visualized paranasal sinuses are clear. IMPRESSION: 1. Large acute intraparenchymal hemorrhage centered in the right thalamus and basal ganglia surroun ding edema. 2. Associated mass effect with generalized segments of the cerebral sulci. 3. Localize 9 mm of eaafg-np-dhit midline shift at the level of the thalamus/third ventricle. 4. Diffuse intraventricular hemorrhage greatest in the right lateral ventricle. Mild hydrocephalus. Findings reported to Dr. Naylor on 09/09/2017 8:40:46 PM. RPTAT: HMVK .Lam Menendez MD, MD Date Time Electronically viewed and signed by .Lam Menendez MD, MD on 09/09/2017 20:44 .K/
[2017-09-09] MEDS ORDERED: LEVETIRACETAM 500 MG (PMX) 100 ML IVPB ONE (21:00)
[2017-09-09] MEDS ORDERED: MANNITOL 25% 50 ML INJ IV* ONE ×2 (21:00→21:30)
--- NOTE | 2017-09-09 21:22 | RADRPT ---
PROCEDURE: XR Chest. CLINICAL INDICATION: Shortness of breath. Cerebrovascular accident. Code stroke. TECHNIQUE: Single frontal view. COMPARISON: None. FINDINGS: There is mild atelectasis at the left lung base. The lungs are otherwise clear. The heart is enlarged. There is calcification in the aorta consistent with atherosclerosis. There is no pleural effusion. There is no pneumothorax. IMPRESSION: 1. Mild atelectasis at the left lung base. 2. Cardiomegaly and atherosclerosis. 3. Otherwise unremarkable chest radiograph. RPTAT: QQ .Vel Kong MD, MD Date Time Electronically viewed and signed by .Vel Kong MD, MD on 09/09/2017 21:21 .R/
[2017-09-09] MEDS ORDERED: MANNITOL 20% 250 ML IV SCH (21:30)
--- NOTE | 2017-09-09 21:43 | RADRPT ---
PROCEDURE: CTA Head. CLINICAL INDICATION: Intracranial hemorrhage TECHNIQUE: CTA of the head was obtained with 1 mm axial images. Sagittal and coronal reformations a nd MIPs were provided. The administered radiation dose was CTDI vol = 54 mGy, DLP = 765 mGy-cm. Corazon ges were obtained prior following the intravenous contrast administration of 115 cc Visipaque 320 co ntrast. Coronal and sagittal as well as maximal intensity projection reformations were obtained. On e or more of the following dose reduction techniques were used: automated exposure control, adjustme nt of the mA and/or kV according to patient size and/or use of iterative reconstruction technique. COMPARISON: There are no similar studies submitted for comparison. FINDINGS: CTA head: Carotid arteries: Some atherosclerotic calcification is noted along the right carotid siphon without significant narrowing. Anterior cerebral arteries: Unremarkable. Middle cerebral arteries: Unremarkable. Posterior cerebral arteries: Unremarkable. Anterior communicating artery: Present. Posterior communicating arteries: Patent on the left. Not definitely seen on the right. Basilar artery: Unremarkable. Vertebral arteries: The right distal vertebral artery is small in caliber and hypoplastic. Vertebral artery dominance: Left Aneurysm: No aneurysm is identified. Venous sinuses: Unremarkable. A few small curvilinear foci of enhancement are seen in the right temporal lobe in the area of the h emorrhage. Hemorrhage is grossly unchanged compared to the earlier noncontrast head CT. IMPRESSION: No evidence of aneurysm or intracranial arterial stenosis. Curvilinear foci of enhancement within the area of the large intraparenchymal hemorrhage. Underlying vascular lesion cannot be excluded. RPTAT: HIKT .Shane Lopez MD, Date Time Electronically viewed and signed by .Shane Lopez MD, MD on 09/09/2017 21:42 .T/
[2017-09-09] MEDS: niCARdipine-NS 0.1MG/ML DRIP 200 ML IV SCH (21:53)
[2017-09-09] MEDS ORDERED: PROPOFOL 100 ML ONE (22:04)
[2017-09-09] MEDS ORDERED: LIDOCAINE 1% (MDV) 20 ML INJ ONE (22:11)
[2017-09-09] MEDS ORDERED: MANNITOL 20% 125 ML IV SCH (22:30)
[2017-09-09] MEDS ORDERED: LIDOCAINE 2%/EPI MPF (SDV) 20 ML VIAL INJ ONE (22:30)
[2017-09-09] MEDS ORDERED: POTASSIUM CHLORIDE 20 MEQ in SOD CHLORIDE 0.9% 100 ML IVPB ONE (23:00)
[2017-09-09] MEDS ORDERED: POTASSIUM CHLORIDE 250 ML IVPB ONE (23:00)
[2017-09-09] MEDS ORDERED: SOD CHLORIDE 0.9% 1,000 ML IV SCH (23:12)
[2017-09-09] MEDS ORDERED: ACETAMINOPHEN 650 MG SUPP PR PRN (23:30)
[2017-09-09] MEDS ORDERED: ONDANSETRON 4 MG INJ IV PRN (23:30)
--- NOTE | 2017-09-09 23:44 | CONS ---
Date/Time of Note Date/Time of Note DATE: 09/09/17 TIME: 23:44 Assessment/Plan Assessment/Plan Additional Assessment/Plan Date of consultation: 09/09/2017 Requesting physician: Dr. Naylor with the emergency department Consulting service: Neurosurgery This is a 57-year-old male with no significant past medical history who suddenly became altered intervertebral level of consciousness several hours ago at home with the patient became weak suddenly on the left side and lost consciousness. He was brought to the [facility] emergency room by paramedics. Since the patient was unresponsive at the time of arrival he was intubated in the emergency department and once CT imaging of the head was done neurosurgery was consulted for further evaluation and management. At the time of arrival, the patient's blood pressure was over 200. The patient's and daughter tell me that the patient did have an altercation earlier at work and got angry. The patient does not regularly see Drs. and as far as the family knows he does not have any past medical history including history of hypertension. The patient was not seen to have any convulsions or seizures prior to arrival. Once I was contacted by Dr. Naylor in the emergency department , I asked him to obtain a CTA of the head to evaluate for possible underlying vascular malformation such as an AVM or less likely a ruptured aneurysm. I also asked the ER to keep the patient's systolic blood pressure less than 160 and to give him 50 g of mannitol urgently. Past medical history: None Medications: None Allergies: No known drug allergies Family history: Noncontributory Social history: The patient lives with his . According to the family, the patient does not smoke tobacco, does not drink alcoholic beverages and does not use illicit or recreational drugs. Review of systems: Please see above. Review of systems cannot be directly obtained from the patient as he is intubated and unresponsive. Physical examination: The patient is seen in the emergency department receiving ICU level care. He is intubated. His pupils are 3 mm and reactive to 2 bilaterally. He withdraws with bilateral upper and lower extremities to pain. He grimaces his face pain. There is no eye opening to voice or pain. He does not follow commands. Imaging: CT of the head without contrast and a follow-up CT angiogram of the head showing a large intracranial hemorrhage that seems to be mainly involving the right thalamus and expanding outward laterally and medially into the lateral ventricles and the third ventricle causing intraventricular hemorrhage and enlargement of the frontal horns and his temporal horns. The basal cisterns only mildly effaced. There is no evidence of subarachnoid hemorrhage. The CT angiogram of the head does not show any gross evidence of an aneurysm or any feeding or draining vessels around the intracranial hemorrhage that could possibly be related to an AVM. 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 The patient's thalamic ICH is probably related to hypertensive crisis as detailed above. I have discussed the above findings in great detail with the patient's daughter who speaks [place] as well as the patient's who speaks mostly Martiniquais and I was able to communicate with the help of a educational interpreter in the emergency department. I discussed all the findings in great detail with the patient's family and the fact that the patient is critically ill and he has sustained a large hemorrhagic stroke. The patient has already started to receive aggressive supportive care. I have also discussed the patient can benefit from insertion of the frontal ventriculostomy drain for CSF diversion as the patient is already showing signs of hydrocephalus as a result of the large intraventricular hemorrhage. The ventriculostomy drain placement unfortunately cannot undo the damage already done from the hemorrhagic stroke but can help minimize secondary injury as a result of hydrocephalus and raised intracranial pressure. I have also discussed the risks and benefits of the above procedure in great detail the patient's family with the risks including bleeding, infection, weakness, numbness, paralysis, comatose state, failure of improvement of symptoms or worsening of symptoms, need for revision of the ventriculostomy placement as well as those risks associated with surgery including deep venous thrombosis, pulmonary embolism, pneumonia, heart attack, further stroke and/or . The procedure can be done at bedside in the emergency department. I have also spent to the family that the patient may require a long-term permanent CSF diversion i.e. OXIDATION ENGINEER shunt placement but this is something that will be determined over time once the ventriculostomy drain is placed. The patient's family fully understands the above discussion and wish for the patient to proceed with this procedure as soon as possible. We will try to accommodate them as best as possible. The patient will be admitted to the hospitalist service in the ICU. CORNELIUS ELDRIDGE MD Sep 09, 2017 23:44
--- NOTE | 2017-09-09 23:44 | OPR ---
Date/Time of Note Date/Time of Note DATE: 09/09/17 TIME: 23:44 Operative Report Procedure Date: Sep 09, 2017 Preoperative Diagnosis right thalamic ICH with intraventricular hemorrhage Developing hydrocephalus Postoperative Diagnosis same as above Operation/Procedure Performed right frontal external ventriculostomy drain placement Surgeon see signature line Digital Printer Operator none Anesthesia Type: other ( local) Estimated Blood Loss: minimal Transfusion none Specimen none Grafts/Implants none Tubes/Drains right frontal external ventriculostomy drain Complications none Pt Condition Post Procedure: critical ( ICU) Indications please see the inpatient consultation during his hospitalization for full set of indications Procedure Description The procedure was done at bedside in the emergency department. The patient was intubated already. The right Asya's point was identified. A small linear incision was marked at this spot. Since the patient was already bald, there was no need for any shaving. After the skin was prepped and draped under standard sterile fashion, local anesthetics were infiltrated into the marked incision. The skin was then cut down to the level of the skull. Self- retaining retractor was placed inside. Using a hand-held drill, a angelo hole was made down to the level of the dura. The sharp part of the ventriculostomy catheter trocar was used to puncture the dura. The ventriculostomy catheter was then inserted pointing toward the ipsilateral medial canthus and pointing towards the ipsilateral external auditory meatus. Just passed 5 cm, a pop was felt through the ependyma. The catheter was advanced 1 more centimeter softly and blood-tinged CSF was seen coming out under increased pressure. The catheter was then tunneled under the skin away from the incision site. The ventriculostomy catheter was then secured at its exit site to the skin with a suture. It was connected to ventriculostomy drainage tubing and bag. The skin was reapproximated with a simple running nylon 3-0 suture. The ventriculostomy drain was set to drain at 0 cm or at the level of foramen of Gamez to be able to drain the thick intraventricular hemorrhage. The ventriculostomy drain was further secured with several Tegaderms. The incision was covered by Tegaderm. The patient tolerated the procedure well. He was at his preop neurologic baseline. Estimated blood loss: Less than 5 cc Wound classification: Clean Patient's condition: Critical Prognosis: Guarded CORNELIUS ELDRIDGE MD Sep 09, 2017 23:44
[2017-09-09] MEDS ORDERED: GLUCOSE GEL 15 GRAM TUBE BUCCAL PRN (23:45)
[2017-09-09] MEDS ORDERED: GLUCAGON 1 MG INJ IM PRN (23:45)
[2017-09-09] MEDS ORDERED: GLUCOSE GEL 15 GRAM TUBE PO PRN ×2 (23:45)
[2017-09-09] MEDS ORDERED: DEXTROSE 50% 50 ML SYRINGE IV PRN ×2 (23:45)
--- NOTE | 2017-09-09 23:48 | HP ---
Date/Time of Note Date/Time of Note DATE: 09/09/17 TIME: 23:48 Assessment/Plan VTE Prophylaxis VTE Prophylaxis Intervention: SCD's Lines/Catheters IV [facility] Saline Lock Assessment/Plan Chief Complaint/Hosp Course This is a 57-year-old male being admitted to the ICU floor for: #1 acute intracranial hemorrhage: Etiology unclear at this time however possibly secondary to underlying poorly controlled hypertension: CAT scan revealed: Large acute intraparenchymal hemorrhage centered in the right thalamus and basal ganglia surrounding edema.Associated mass effect with generalized segments of the cerebral sulci.Localize 9 mm of [id number] midline shift at the level of the thalamus/third ventricle. Diffuse intraventricular hemorrhage greatest in the right lateral ventricle. Mild hydrocephalus. Neurosurgery was consulted stat by the ED. Bedside ventriculostomy of the right ventricle was done by neurosurgery Dr. Montelongo. Will transfer the patient to ICU for closer monitoring. Repeat CAT scan in the a.m. Patient was initially given Keppra for seizure prophylaxis, will defer further AEDs to neurosurgery/neurology. Will consult neurology as well. Blood pressure control with nicardipine drip with a a goal systolic less than 160. SCDs. Will hold any anticoagulation and antiplatelet medications. PT OT speech therapy evaluation will need to be initiated later once patient is seen to be clinically improving and extubated. #2 acute respiratory failure: Patient is currently intubated on the ventilator. Repeat ABG in a.m. Repeat chest x-ray. Consult pulmonology. #3 Hypertensive emergency: Patient presented to the ED with systolic BP above 220s. At the current time patient will be kept on a nicardipine drip to maintain blood pressure below 160 systolic. Will need to monitor blood pressures. Will need to initiate antihypertensive regimen as indicated. #4 hyperglycemia: We will check a hemoglobin A1c. Put patient on insulin sliding scale. Patient does not have any history of diabetes in the past. #5 obesity: We will check a lipid panel, A1c, TSH #6 leukocytosis: This is likely reactive in nature secondary to patient's clinical condition will continue to monitor. There are no signs of any acute fevers at this time or any signs of infection. His white blood cell count may still in increase based on the acuity of the situation as well as the stress of his body and to be undergoing especially after his ventriculostomy. #7 DVT GI prophylaxis: The current time will hold any chemical prophylaxis, put patient on SCDs, Protonix Further treatment strategy will be implemented as per the clinical course Problems: HPI/ROS Admit Date/Time Admit Date/Time Hx of Present Illness Chief complaint: Sudden onset altered level consciousness The history was obtained from the ED physician documentation as patient was unable to provide history and family was not present during my examination. The patient is a 57-year-old male, presenting to the ER because of sudden onset of altered level consciousness, witnessed by the family who called 911. EMS was called at 195 , when paramedics arrived, patient had a GCS of 3, he was immediately transported to the emergency department. He was obtunded obtunded, unable to protect his airway. He was therefore intubated immediately. Upon my examination patient remains intubated and connected to the ventilator. Patient was found to have intracranial bleed with mesh shift. Neurosurgery was consulted immediately by the ED and Dr. Montelongo the neurosurgeon is currently at the bedside appearing to perform ventriculostomy. allergies: nkda meds: none ROS Subjective hx not possible: pt critical, pt critical status PMH/Family/Social Past Medical History Medical History: no pertinent history Past Surgical History Past Surgical Hx: no surgical history Family History Significant Family History: no pertinent family hx Social History unable to assess secondary to clinical condition Smoking Status: Unknown if ever smoked Exam/Review of Systems Vital Signs Vitals Vital Signs Date Time Temp Pulse Resp B/P Pulse Ox O2 Delivery O2 Flow Rate FiO2 09/09/17 23:09 106 20 99 50 09/09/17 22:45 145/89 Mechanical Ventilator Exam Exam General: Patient is well-developed well-nourished The patient is alert oriented -3 lying comfortably in bed. HEENT: Atraumatic, normocephalic. The pupils are equal, round and reactive. Extraocular motor are intact Neck: Supple with full range of motion. No rigidity or meningismus Chest: Nontender Lungs: Clear to auscultation bilaterally no crackles rales or wheezing Heart: Normal S1-S2, Regular rhythm and rate. No murmur, S3, or S4 Abdomen: Soft , nontender, nondistended , bowel sounds are present. No guarding no rebound tenderness , No masses or organomegaly. No costovertebral temporal angle mass Extremities: Normal to inspection, no edema no cyanosis Neurologic: Normal mental status, speech normal, cranial nerves II through XII are intact, motor and sensory are intact, no focal weakness Additional Comments EKG: Rate/Rhythm: Normal Sinus Rhythm 74 beats/min QRS, ST, T-waves: No ST elevation, no T inversion, LVH Impression: Normal EKG PROCEDURE: CTA Head. CLINICAL INDICATION: Intracranial hemorrhage TECHNIQUE: CTA of the head was obtained with 1 mm axial images. Sagittal and coronal reformations and MIPs were provided. The administered radiation dose was CTDI vol = 54 mGy, DLP = 765 mGy-cm. Images were obtained prior following the intravenous contrast administration of 115 cc Visipaque 320 contrast. Coronal and sagittal as well as maximal intensity projection reformations were obtained. One or more of the following dose reduction techniques were used: automated exposure control, adjustment of the mA and/or kV according to patient size and/or use of iterative reconstruction technique. COMPARISON: There are no similar studies submitted for comparison. FINDINGS: CTA head: Carotid arteries: Some atherosclerotic calcification is noted along the right carotid siphon without significant narrowing. Anterior cerebral arteries: Unremarkable. Middle cerebral arteries: Unremarkable. Posterior cerebral arteries: Unremarkable. Anterior communicating artery: Present. Posterior communicating arteries: Patent on the left. Not definitely seen on the right. Basilar artery: Unremarkable. Vertebral arteries: The right distal vertebral artery is small in caliber and hypoplastic. Vertebral artery dominance: Left Aneurysm: No aneurysm is identified. Venous sinuses: Unremarkable. A few small curvilinear foci of enhancement are seen in the right temporal lobe in the area of the hemorrhage. Hemorrhage is grossly unchanged compared to the earlier noncontrast head CT. IMPRESSION: No evidence of aneurysm or intracranial arterial stenosis. Curvilinear foci of enhancement within the area of the large intraparenchymal hemorrhage. Underlying vascular lesion cannot be excluded. RPTAT: HIKT .Shane Lopez MD, Date Time Electronically viewed and signed by .Shane Lopez MD, on 09/09/2017 21:42 .T/ CC: LAM MCKAY MD PROCEDURE: CT Brain without contrast. CLINICAL INDICATION: Focal neurological deficit. TECHNIQUE: A CT of the brain was performed on a multislice detector CT scanner utilizing axial sections from the skull base through the vertex without contrast. Images were reviewed on a high-resolution PACS workstation. Exam CTDlvol = 43 mGy and DLP = 859 mGy-cm. One of the following 3 dose reduction techniques were used: Automated exposure control; adjustment of the mA and/or kV according to patient size; or use of iterative reconstruction technique. COMPARISON: None available FINDINGS: There is a 4.3 x 4.2 x 4.5 cm hyperdense acute intraparenchymal hemorrhage centered in the right thalamus and basal ganglia. There is surrounding edema. Large amount of extension into the right lateral ventricle. Additional intraventricular hemorrhage extends into the left lateral ventricle, third ventricle and fourth ventricle. There is mild hydrocephalus. There is diffuse loss of the cerebral sulci compatible with increased fracture. There is 9 mm of localized midline shift at the level thalamus adjacent to the hematoma. Basilar cisterns are grossly intact. There is otherwise age appropriate generalized atrophy. Visualized paranasal sinuses are clear. IMPRESSION: 1. Large acute intraparenchymal hemorrhage centered in the right thalamus and basal ganglia surrounding edema. 2. Associated mass effect with generalized segments of the cerebral sulci. 3. Localize 9 mm of [id number] midline shift at the level of the thalamus/ third ventricle. 4. Diffuse intraventricular hemorrhage greatest in the right lateral ventricle. Mild hydrocephalus. Findings reported to Dr. Mckay on 09/09/2017 8:40:46 PM. RPTAT: HMVK .Lam Menendez MD, MD Date Time Electronically viewed and signed by .Lam Menendez MD, on 09/09/2017 20:44 .K/ CC: AJITH EDMONDS MD PROCEDURE: XR Chest. CLINICAL INDICATION: Shortness of breath. Cerebrovascular accident. Code stroke. TECHNIQUE: Single frontal view. COMPARISON: None. FINDINGS: There is mild atelectasis at the left lung base. The lungs are otherwise clear. The heart is enlarged. There is calcification in the aorta consistent with atherosclerosis. There is no pleural effusion. There is no pneumothorax. IMPRESSION: 1. Mild atelectasis at the left lung base. 2. Cardiomegaly and atherosclerosis. 3. Otherwise unremarkable chest radiograph. RPTAT: QQ .Vel Kong MD, MD Date Time Electronically viewed and signed by .Vel Kong MD, MD on 09/09/2017 21:21 .R/ CC: AJITH EDMONDS MD Labs Result Diagram: 09/09/17 2100 09/09/17 2100 Medications Medications Current Medications Nicardipine HCl 200 ml @ 50 mls/hr TITRATE IV Last administered on 09/09/17t 21:53; Admin Dose 50 MLS/HR; Start 09/09/17 at 21:30 Potassium Chloride 250 ml @ 62.5 mls/hr ONCE ONCE IVPB ; Start 09/09/17 at 23: 00; Stop 09/10/17 at 02:59 Potassium Chloride 20 meq/ Sodium Chloride 110 ml @ 55 mls/hr ONCE ONCE IVPB ; Start 09/09/17 at 23:00; Stop 09/10/17 at 00:59 Sodium Chloride (NS) 1,000 ml @ 70 mls/hr [id number] IV ; Start 09/09/17 at 23:12 Ondansetron HCl (Zofran Inj) 4 mg Q6H PRN IV NAUSEA AND/OR VOMITING; Start 09/09/17 at 23:30 Acetaminophen (Tylenol Supp) 650 mg Q4H PRN AL PAIN LEVEL 1-3 OR FEVER; Start 09/09/17 at 23:30 Pantoprazole (Protonix Iv) 40 mg DAILY@06 IV ; Start 09/10/17 at 06:00 Diagnostic Test (Pha) (Accu-Chek) 1 ea 02 XX ; Start 09/10/17 at 02:00 Insulin Aspart (Novolog Insulin Pen) NOVOLOG *MILD* ALGORI... Q4 SC ; Start 09/10/17 at 01:00 ISAK ANDRE Sep 09, 2017 23:48
[2017-09-10] VITALS (86 sets, daily range): BP systolic 104–171; BP diastolic 62–88; PULSE 72–131; RESP 18–40; TEMP 98.6
[2017-09-10] MEDS: ACCU-CHEK XX SCH ×16 (03:00→23:14)
[2017-09-10] MEDS ORDERED: PROPOFOL 100 ML IV ONE (03:00)
[2017-09-10] MEDS: INSULIN ASPART [NOVOLOG] 3 ML PEN SC SCH ×2 (03:40→05:04)
[2017-09-10] MEDS: PROPOFOL 100 ML IV SCH ×4 (03:42→19:02)
[2017-09-10] MEDS: niCARdipine-NS 0.1MG/ML DRIP 200 ML IV SCH ×2 (05:22→08:43)
[2017-09-10] MEDS ORDERED: PANTOPRAZOLE 40 MG INJ IV SCH (06:00)
--- NOTE | 2017-09-10 06:53 | RADRPT ---
PROCEDURE: CT Brain without contrast. CLINICAL INDICATION: Intracerebral hemorrhage. TECHNIQUE: A CT of the brain was performed on a [employer] 64-slice CT scanner utilizing axial imaging from the skull base through the vertex without IV contrast. Multiplanar reformatted images were made. Images were reviewed on a PACS workstation. The CTDIvol is 44.68 mGy and the DLP is 810 .25 mGycm. One or more of the following dose reduction techniques were used: - Automated exposure control. - Adjustment of the mA and/or kV according to patient size. - Use of iterative reconstruction technique. COMPARISON: CT 09/09/2017 FINDINGS: There has been interval placement of a right trans frontal ventriculostomy catheter with tip located in the anterior third ventricle. Small amount of hemorrhage surrounds the ventriculostomy catheter within the right frontal lobe on axial image 25. Again demonstrated is an acute intraparenchymal hem atoma located in the right thalamus and basal ganglia measuring 4.1 cm x 5.1 cm x 4.3 cm in AP, youngblood sverse, and craniocaudal dimensions respectively. Hematoma is unchanged in size. Right to left subfa lcine shift remains unchanged measuring 9 mm at the level of the thalamus. Extensive intraventricula r blood within the right lateral, left occipital horn, third and fourth ventricles. There is slight increased ballooning of the temporal horns. There is loss of the right basal cistern. The mastoid sinuses are clear. Moderate opacification of the left maxillary and mild involvement of the bilateral ethmoid sinuses is present. IMPRESSION: 1. Large hyperdense intraparenchymal hematoma centered in the right side thalamus and basal ganglia without significant interval change measuring 4.1 cm by 5.1 cm x 4.3 cm. 2. Unchanged 9 mm right to left subfalcine shift at the level of the thalamus. 3. Interval placement of a right transfrontal ventriculostomy catheter with a small amount of hemor rhage surrounding the catheter in the right frontal lobe. 4. Extensive intraventricular blood within the right lateral ventricle, the dependent left occipita l horn, the third and fourth ventricles. Interval slight increased ballooning of the temporal horns is demonstrated. RPTAT: HRSR Wing Sales Physician Date Time Electronically viewed and signed by Wing Sales Physician on 09/10/2017 06:52 RR/
[2017-09-10] MEDS ORDERED: LORAZEPAM 2 MG INJ IV PRN (07:00)
[2017-09-10] MEDS ORDERED: DEXTROSE 50% 50 ML SYRINGE IV PRN ×2 (09:00)
[2017-09-10] MEDS: D5-NS + KCL 20 MEQ 1,000 ML IV SCH ×4 (10:00→23:07)
[2017-09-10] MEDS: INSULIN HUMAN REGULAR 100 UNIT in SOD CHLORIDE 0.9% 99 ML IV SCH ×2 (10:36→22:24)
--- NOTE | 2017-09-10 11:42 | CONS ---
DATE OF ADMISSION: 09/09/2017 DATE OF CONSULTATION: REASON FOR CONSULTATION: Ventilator management. Thank you, Dr. Velasquez, for this consultation. HISTORY OF PRESENT ILLNESS: This is a 57-year-old gentleman brought in following altered mental sta tus, acute onset. Upon arrival, patient had GCS of 3, was obtunded, intubated for airway protection . CT of the brain was performed and demonstrated acute intracranial hemorrhage with large acute int raparenchymal hemorrhage in the right hypothalamus and basal ganglia. The patient was taken to surg power emergently by Dr. Ishan Montelongo. Ventriculostomy was placed, commenced on Keppra for seizure proph ylaxis, currently remains on a nicardipine drip, intubated on mechanical ventilation in the intensiv e care unit. PAST MEDICAL HISTORY: Obesity. MEDICATIONS PRIOR TO ADMISSION: None. ALLERGIES: NONE. SOCIAL HISTORY: Nonsmoker, no alcohol, no history of drug use. FAMILY HISTORY: Unknown. SYSTEMS REVIEW: A 12-point review of systems currently unable to perform. PHYSICAL EXAMINATION: GENERAL: Well-nourished, well-developed gentleman, intubated on mechanical ventilation, sedated, ap pears comfortable at rest, no acute distress. VITAL SIGNS: Temperature 98, pulse is 92, blood pressure 104/67, O2 saturation 96% on FIO2 of 50%. HEENT: Orally intubated. Moist mucous membranes. CARDIAC: S1, S2, no added sounds or murmurs. CHEST: Diminished air entry bilaterally. ABDOMEN: Soft, nontender. No guarding or rebound. EXTREMITIES: No cyanosis, clubbing, edema. NEUROLOGIC: Unable to assess at present. LABORATORY DATA: White count 14.7, hemoglobin 14.8. Chemistry: BUN 17, creatinine 1.18, PaO2 was 400 and . INR 0.91. Urinalysis unremarkable. IMPRESSION AND PLAN: 1. Acute intracerebral bleed status post ventriculostomy. 2. Altered mental status secondary to above. 3. Hypoxemic respiratory failure secondary to ICH. 4. Hypoglycemia, possible underlying diabetes mellitus. Will require check an HbA1c, which was brant vated at 7.6. RECOMMENDATIONS 1. Continue mechanical ventilation. 2. Serial CT of the brain. 3. Seizure prophylaxis. 4. Tight blood pressure control. 5. Start insulin drip for hyperglycemia. 6. DVT and GI prophylaxis. Dictated By: EMMANUEL MCARTHUR/LILIANE Conf#: [id number] [facility]#: [id number]
--- NOTE | 2017-09-10 12:27 | CONS ---
Date/Time of Note Date/Time of Note DATE: 09/10/17 TIME: 12:20 Assessment/Plan Assessment/Plan Chief Complaint/Hosp Course 57 yo male with large ICH, right thalamus extending into basal ganglia with intraventricular extension and hydrocephalus requiring emergent EVD. Recommendations: maintain SBP less than 140/90 EVD management per neurosurgery may c/w seizure ppx frequent neuro checks ICU level care maintain afebrile, euglycemic no antiplatelets or AC, no pharmacologic DVT ppx until cleared by neurosurgery prognosis guarded at this time will request Dr Maddy Crain to follow Problems: Consultation Date/Type/Reason Admit Date/Time 09/10/17 Date of Consultation: Sep 10, 2017 Type of Consultation: Neurology Reason for Consultation ICH Referring Provider: ISAK ANDRE Hx of Present Illness 57 yo male presented with AMS, on arrival GSC 3. CTH showed large acute ICH right thalamus extending into basal ganglia 4.1 cm x 5.1 cm x 4.3 cm 9 mm right to left subfalcine shift and obstructive hydro with STEPHAN. CTA no underlying aneurysm. He was intubated and emergent EVD placement, right frontal catheter started on Keppra for sz ppx. No hx of prior seizure no prior CVA per at bedside. Past Medical History Medical History: no pertinent history Past Surgical History Past Surgical Hx: no surgical history Social History Smoking Status: Unknown if ever smoked Exam/Review of Systems Vital Signs Vitals Vital Signs Date Time Temp Pulse Resp B/P Pulse Ox O2 Delivery O2 Flow Rate FiO2 09/10/17 11:30 93 22 137/75 100 Mechanical Ventilator 09/10/17 11:02 50 09/10/17 08:00 99.9 Intake and Output 09/09/17 09/09/17 09/10/17 15:00 23:00 07:00 Intake Total 1005 ml Output Total 410 ml Balance 595 ml Exam intubated sedated limited exam EVD in place draining CN: pupils 1-2 mm can doll's corneals intact gag present Motor: w/d in extremities appears more like posturing in UE extensor and LE upgoing toes to noxious Results Result Diagram: 09/10/17 0442 09/10/17 0442 Results 24 hrs Laboratory Tests Test 09/09/17 20:22 09/09/17 21:00 09/09/17 21:30 09/09/17 23:59 Bedside Glucose 199 White Blood Count 11.9 H Red Blood Count 4.80 Hemoglobin 15.5 Hematocrit 43.9 Mean Corpuscular Volume 91.5 Mean Corpuscular Hemoglobin 32.3 Mean Corpuscular Hemoglobin Concent 35.3 Red Cell Distribution Width 12.2 Platelet Count 206 Mean Platelet Volume 11.1 H Neutrophils % 54.5 Lymphocytes % 37.0 Monocytes % 6.0 Eosinophils % 1.9 Basophils % 0.3 Nucleated Red Blood Cells % 0.0 Neutrophils # 6.5 Lymphocytes # 4.4 H Monocytes # 0.7 Eosinophils # 0.2 Basophils # 0.0 Nucleated Red Blood Cells # 0.0 Prothrombin Time 12.2 Prothrombin Time Ratio 1.0 INR International Normalized Ratio 0.91 Activated Partial Thromboplast Time 24.1 L Sodium Level 141 Potassium Level 3.0 L Chloride Level 99 Carbon Dioxide Level 24 Anion Gap 21 H Blood Urea Nitrogen 12 Creatinine 0.85 Glucose Level 237 H Hemoglobin A1c 7.6 H Calcium Level 8.5 Troponin I < 0.012 Blood Gas Specimen Source Blood arterial Arterial Blood Date Drawn 09/09/2017 9:15:33 PM Arterial Blood pH (Temp corrected) 7.446 Arterial Blood pCO2 (Temp correct) 36.1 Arterial Blood pO2 (Temp corrected) 342.4 H Arterial Blood HCO3 24.3 Arterial Blood Base Excess 0.7 Arterial Blood Oxygen Saturation 99.6 H Chadd Test ACCEPTAB Arterial Blood Gas Puncture Site Right Radial Arterial Blood Carboxyhemoglobin 0 Arterial Blood Methemoglobin 0.5 Blood Gas A-a O2 Differential 334.5 H Oxyhemoglobin Percent 99.1 H Total Hemoglobin 16.5 Blood Gas Temperature 37.0 Blood Gas Respiration Rate 20.0 Blood Gas Actual Respiration Rate 25 Blood Gas Modality VENT - AC FiO2 100.0 Blood Gas Tidal Volume 500.0 Blood Gas Low PEEP Setting 5.0 Blood Gas Notified Whom MA Blood Gas Notified Time 09/09/2017 9:34:21 PM Urine Color COLORLESS Urine Clarity CLEAR Urine pH 8.0 Urine Specific [place] 1.013 Urine Ketones NEGATIVE Urine Nitrite NEGATIVE Urine Bilirubin NEGATIVE Urine Urobilinogen NEGATIVE Urine Leukocyte Esterase NEGATIVE Urine Microscopic RBC 1 Urine Microscopic WBC 1 Urine Hemoglobin NEGATIVE Urine Glucose 3+ H Urine Total Protein 1+ H Urine Opiates Screen Negative Urine Barbiturates Negative Urine Amphetamines Screen Negative Urine Benzodiazepines Screen Negative Urine Cocaine Screen Negative Urine Cannabinoids Negative Test 09/10/17 03:15 09/10/17 04:42 09/10/17 04:57 09/10/17 08:52 Bedside Glucose 300 H 278 H 247 H White Blood Count 14.7 #H Red Blood Count 4.42 L Hemoglobin 14.8 Hematocrit 41.2 L Mean Corpuscular Volume 93.2 Mean Corpuscular Hemoglobin 33.5 H Mean Corpuscular Hemoglobin Concent 35.9 Red Cell Distribution Width 12.3 Platelet Count 219 Mean Platelet Volume 11.2 H Neutrophils % 86.2 H Lymphocytes % 7.6 L Monocytes % 5.7 Eosinophils % 0.0 Basophils % 0.1 Nucleated Red Blood Cells % 0.0 Neutrophils # 12.6 H Lymphocytes # 1.1 Monocytes # 0.8 Eosinophils # 0.0 Basophils # 0.0 Nucleated Red Blood Cells # 0.0 Sodium Level 144 Potassium Level 4.1 Chloride Level 101 Carbon Dioxide Level 27 Anion Gap 20 H Blood Urea Nitrogen 17 Creatinine 1.18 Glucose Level 293 H Calcium Level 8.8 Magnesium Level 2.1 Thyroid Stimulating Hormone (TSH) 0.568 Test 09/10/17 10:20 09/10/17 11:04 Bedside Glucose 262 H 273 H Medications Medications Current Medications Ondansetron HCl (Zofran Inj) 4 mg Q6H PRN IV NAUSEA AND/OR VOMITING; Start 09/09/17 at 23:30 Acetaminophen (Tylenol Supp) 650 mg Q4H PRN RI PAIN LEVEL 1-3 OR FEVER; Start 09/09/17 at 23:30 Pantoprazole (Protonix Iv) 40 mg DAILY@06 IV Last administered on 09/10/17 06: 41; Admin Dose 40 MG; Start 09/10/17 at 06:00 Diagnostic Test (Pha) (Accu-Chek) 1 ea 02 XX Last administered on 09/10/17 03: 00; Admin Dose 1 EA; Start 09/10/17 at 02:00 Miscellaneous Information 1 ea 1 ea NOTE XX ; Start 09/09/17 at 23:45 Potassium Chloride/Dextrose/ Sod Cl 1,000 ml @ 100 mls/hr Q10H IV Last administered on 09/10/17 00:00; Admin Dose 100 MLS/HR; Start 09/10/17 at 00:00 Propofol (Diprivan) 100 ml @ 3 mls/hr Q12H IV Last administered on 09/10/17 08 :40; Admin Dose 24 MLS/HR; Start 09/10/17 at 03:30 Lorazepam (Ativan) 2 mg Q4H PRN IV AGITATION; Start 09/10/17 at 07:00 Diagnostic Test (Pha) (Accu-Chek) 1 ea Q1H XX Last administered on 09/10/17 11 :29; Admin Dose 1 EA; Start 09/10/17 at 09:00 Dextrose (D50w Syringe) 25 ml Q15M PRN IV Till BS 80 mg/dL or above x2; Start 09/10/17 at 09:00 Dextrose (D50w Syringe) 50 ml Q15M PRN IV Till BS 80 mg/dL or above x2; Start 09/10/17 at 09:00 ROSANNA MENSAH MD Sep 10, 2017 12:27
--- NOTE | 2017-09-10 16:16 | PN ---
Date/Time of Note Date/Time of Note DATE: 09/10/17 TIME: 16:09 Assessment/Plan VTE Prophylaxis VTE Prophylaxis Intervention: SCD's Lines/Catheters IV Catheter Type (from Nrs): Peripheral IV Urinary Cath still in place: Yes Reason Cath still needed: other (indicate) (critically ill) Assessment/Plan Assessment/Plan 57 yo M admitted following spontaneous right thalamic ICH sp ventriculostomy 11.1. PLAN neuro: ICH: EVD in place, cont BP and BG control. AED prophx pulm: cont mechanical ventilation CV: BP control as above Endo: insulin drip given hyperglycemia, a1c 7.6 FEN: RD consult for tube feeds. NG placement requested Prophx: H2B while intubated, SCDs only for DVT prophx critical care time: 30 minutes Subjective 24 Hr Interval Summary Free Text/Dictation Intubated. EVD with serosang output Exam/Review of Systems Vital Signs Vitals Vital Signs Date Time Temp Pulse Resp B/P Pulse Ox O2 Delivery O2 Flow Rate FiO2 09/10/17 15:30 78 21 135/73 100 Mechanical Ventilator 09/10/17 15:04 50 09/10/17 12:00 98.1 Intake and Output 09/09/17 09/09/17 09/10/17 15:00 23:00 07:00 Intake Total 1179 ml Output Total 410 ml Balance 769 ml Exam EVD in place intubated no mrg abd soft no rashes BGs noted Results Result Diagram: 09/10/172 09/10/17 0442 Results 24 hrs Laboratory Tests Test 09/09/17 20:22 09/09/17 21:00 09/09/17 21:30 09/09/17 23:59 Bedside Glucose 199 White Blood Count 11.9 H Red Blood Count 4.80 Hemoglobin 15.5 Hematocrit 43.9 Mean Corpuscular Volume 91.5 Mean Corpuscular Hemoglobin 32.3 Mean Corpuscular Hemoglobin Concent 35.3 Red Cell Distribution Width 12.2 Platelet Count 206 Mean Platelet Volume 11.1 H Neutrophils % 54.5 Lymphocytes % 37.0 Monocytes % 6.0 Eosinophils % 1.9 Basophils % 0.3 Nucleated Red Blood Cells % 0.0 Neutrophils # 6.5 Lymphocytes # 4.4 H Monocytes # 0.7 Eosinophils # 0.2 Basophils # 0.0 Nucleated Red Blood Cells # 0.0 Prothrombin Time 12.2 Prothrombin Time Ratio 1.0 INR International Normalized Ratio 0.91 Activated Partial Thromboplast Time 24.1 L Sodium Level 141 Potassium Level 3.0 L Chloride Level 99 Carbon Dioxide Level 24 Anion Gap 21 H Blood Urea Nitrogen 12 Creatinine 0.85 Glucose Level 237 H Hemoglobin A1c 7.6 H Calcium Level 8.5 Troponin I < 0.012 Blood Gas Specimen Source Blood arterial Arterial Blood Date Drawn 09/09/2017 9:15:33 PM Arterial Blood pH (Temp corrected) 7.446 Arterial Blood pCO2 (Temp correct) 36.1 Arterial Blood pO2 (Temp corrected) 342.4 H Arterial Blood HCO3 24.3 Arterial Blood Base Excess 0.7 Arterial Blood Oxygen Saturation 99.6 H Chadd Test ACCEPTAB Arterial Blood Gas Puncture Site Right Radial Arterial Blood Carboxyhemoglobin 0 Arterial Blood Methemoglobin 0.5 Blood Gas A-a O2 Differential 334.5 H Oxyhemoglobin Percent 99.1 H Total Hemoglobin 16.5 Blood Gas Temperature 37.0 Blood Gas Respiration Rate 20.0 Blood Gas Actual Respiration Rate 25 Blood Gas Modality VENT - AC FiO2 100.0 Blood Gas Tidal Volume 500.0 Blood Gas Low PEEP Setting 5.0 Blood Gas Notified Whom RI Blood Gas Notified Time 09/09/2017 9:34:21 PM Urine Color COLORLESS Urine Clarity CLEAR Urine pH 8.0 Urine Specific [place] 1.013 Urine Ketones NEGATIVE Urine Nitrite NEGATIVE Urine Bilirubin NEGATIVE Urine Urobilinogen NEGATIVE Urine Leukocyte Esterase NEGATIVE Urine Microscopic RBC 1 Urine Microscopic WBC 1 Urine Hemoglobin NEGATIVE Urine Glucose 3+ H Urine Total Protein 1+ H Urine Opiates Screen Negative Urine Barbiturates Negative Urine Amphetamines Screen Negative Urine Benzodiazepines Screen Negative Urine Cocaine Screen Negative Urine Cannabinoids Negative Test 09/10/17 03:15 09/10/17 04:42 09/10/17 04:57 09/10/17 08:52 Bedside Glucose 300 H 278 H 247 H White Blood Count 14.7 #H Red Blood Count 4.42 L Hemoglobin 14.8 Hematocrit 41.2 L Mean Corpuscular Volume 93.2 Mean Corpuscular Hemoglobin 33.5 H Mean Corpuscular Hemoglobin Concent 35.9 Red Cell Distribution Width 12.3 Platelet Count 219 Mean Platelet Volume 11.2 H Neutrophils % 86.2 H Lymphocytes % 7.6 L Monocytes % 5.7 Eosinophils % 0.0 Basophils % 0.1 Nucleated Red Blood Cells % 0.0 Neutrophils # 12.6 H Lymphocytes # 1.1 Monocytes # 0.8 Eosinophils # 0.0 Basophils # 0.0 Nucleated Red Blood Cells # 0.0 Sodium Level 144 Potassium Level 4.1 Chloride Level 101 Carbon Dioxide Level 27 Anion Gap 20 H Blood Urea Nitrogen 17 Creatinine 1.18 Glucose Level 293 H Calcium Level 8.8 Magnesium Level 2.1 Thyroid Stimulating Hormone (TSH) 0.568 Test 09/10/17 10:20 09/10/17 11:04 09/10/17 12:14 09/10/17 12:58 Bedside Glucose 262 H 273 H 230 H 195 Test 09/10/17 14:00 09/10/17 15:19 Bedside Glucose 172 217 Medications Medications Current Medications Ondansetron HCl (Zofran Inj) 4 mg Q6H PRN IV NAUSEA AND/OR VOMITING; Start 09/09/17 at 23:30 Acetaminophen (Tylenol Supp) 650 mg Q4H PRN [place] PAIN LEVEL 1-3 OR FEVER; Start 09/09/17 at 23:30 Pantoprazole (Protonix Iv) 40 mg DAILY@06 IV Last administered on 09/10/17 06: 41; Admin Dose 40 MG; Start 09/10/17 at 06:00 Diagnostic Test (Pha) (Accu-Chek) 1 ea 02 XX Last administered on 09/10/17 03: 00; Admin Dose 1 EA; Start 09/10/17 at 02:00 Miscellaneous Information 1 ea 1 ea NOTE XX ; Start 09/09/17 at 23:45 Potassium Chloride/Dextrose/ Sod Cl 1,000 ml @ 100 mls/hr Q10H IV Last administered on 09/10/17 13:36; Admin Dose 100 MLS/HR; Start 09/10/17 at 00:00 Propofol (Diprivan) 100 ml @ 3 mls/hr Q12H IV Last administered on 09/10/17 13 :36; Admin Dose 12 MLS/HR; Start 09/10/17 at 03:30 Lorazepam (Ativan) 2 mg Q4H PRN IV AGITATION; Start 09/10/17 at 07:00 Diagnostic Test (Pha) (Accu-Chek) 1 ea Q1H XX Last administered on 09/10/17 15 :26; Admin Dose 1 EA; Start 09/10/17 at 09:00 Dextrose (D50w Syringe) 25 ml Q15M PRN IV Till BS 80 mg/dL or above x2; Start 09/10/17 at 09:00 Dextrose (D50w Syringe) 50 ml Q15M PRN IV Till BS 80 mg/dL or above x2; Start 09/10/17 at 09:00 NATE TARANGO MD Sep 10, 2017 16:16
[2017-09-10] MEDS ORDERED: niCARdipine-NS 0.1MG/ML DRIP 200 ML ONE (16:35)
[2017-09-10] MEDS: niCARdipine 25 MG in SOD CHLORIDE 0.9% 240 ML IV SCH ×3 (17:10→23:33)
--- NOTE | 2017-09-10 20:02 | RADRPT ---
PROCEDURE: XR Abdomen. CLINICAL INDICATION: Abdominal pain. Nasogastric tube placement TECHNIQUE: AP abdomen x-ray. COMPARISON: None. FINDINGS: There is no evidence of obstruction. Nasogastric tube is seen in the proximal gastric lumen. Recomme nd advancement of approximately 4-5 cm. There are no abnormal calcifications overlying the urinary t racts. No osseous lesion is seen. IMPRESSION: 1. Nasogastric tube in the proximal gastric lumen. Recommend advancement of approximately 4-5 cm. 2. Nonobstructive bowel gas pattern. RPTAT: HPNM Physician Celina Date Time Electronically viewed and signed by Physician Celina on 09/10/2017 20:01 /
--- NOTE | 2017-09-10 22:03 | RADRPT ---
PROCEDURE: XR Abdomen. CLINICAL INDICATION: Check nasogastric tube position. TECHNIQUE: AP supine abdomen x-ray. COMPARISON: 09/10/2017. 1942 hours. FINDINGS: The bowel gas pattern is normal with no evidence of obstruction. The nasogastric tube tip is in the distal stomach. There are no abnormal calcifications overlying the urinary tracts. There are degenerative changes of the spine. IMPRESSION: 1. Nasogastric tube tip in the distal stomach. 2. No evidence of obstruction. 3. Degenerative changes of the spine. RPTAT: QQ .Vel Kong MD, MD Date Time Electronically viewed and signed by .Vel Kong MD, MD on 09/10/2017 22:03 .R/
[2017-09-10] MEDS: FAMOTIDINE 20 MG TAB GTB SCH (23:12)
[2017-09-11] VITALS (66 sets, daily range): BP systolic 82–149; BP diastolic 52–98; PULSE 68–123; RESP 20–22
[2017-09-11] MEDS ORDERED: ACETAMINOPHEN 325 MG TAB PO PRN
[2017-09-11] MEDS: ACCU-CHEK XX SCH ×24 (00:06→23:29)
[2017-09-11] MEDS: PROPOFOL 100 ML IV SCH (00:06)
[2017-09-11] MEDS ORDERED: NORepinephrine 8MG/250 ML (PMX 250 ML ONE (00:34)
[2017-09-11] MEDS ORDERED: NORepinephrine 8MG/250 ML (PMX 250 ML IV SCH (00:36)
--- NOTE | 2017-09-11 03:52 | EN ---
Date/Time of Note Date/Time of Note DATE: 09/11/17 TIME: 03:36 Event Note Medicine Medicine Event Note Was called to the nurse secondary to patient being hypotensive. Patient currently intubated. Discussed cased with Dr. Montelongo who feels patient may have suffered a cardiac event. EKG done. Normal sinus rhythm at 90 bpm with new t wave inversions in lead V5, otherwise appears similar to EKG on admission on 09/09/17. Patient was started on levophed secondary to the hypotension with bp in the 70s systolic, bp subsequently improved to 118/76. No more drainaged out the ventriculostomy drain, Dr. Montelongo aware. Stat Cardiac enzymes also ordered. Pupil exam changed according to the nurse with Right pupil 3mm and left pupil 4 mm. Of note patient also had a temp of 101.0F at 11pm on 09/10. Currently 99.0F. Vitals: as above HEENT: Right ventriculostomy drain, Right 3mm, Left 4mm CVS: RRR, no murmurs appreciated lungs: clear to auscultation bilaterally, no rales Neuro: intubated, obtunded. Off sedation. Minimal purposeful movements with vigorous sternal rub EKG: Ap: #1 Hypotension: ACS vs. Sepsis vs. other etiology. Blood cx and urine cx ordered. Stat EKG. Stat Cradiac enzymes. Initiated levophed. Will order stat CT head w/out contrast. #2 Pupillary changes: Stat CT head w/out contrast to rule out any acute change such as herniation. Greater than 40 minutes of critical care time was spent on the care and management of this patient. ISAK ANDRE Sep 11, 2017 03:46
--- NOTE | 2017-09-11 05:03 | RADRPT ---
PROCEDURE: CT Brain without contrast. CLINICAL INDICATION: Intracerebral hemorrhage, unequal pupils. TECHNIQUE: A CT of the brain was performed on a [employer] [place] [employer] 64-slice CT scanner utilizing axial imaging from the skull base through the vertex without IV contrast. Multiplanar reformatted images were made. Images were reviewed on a PACS workstation. The CTDIvol is 45.01 mGy and the DLP is 810 .25 mGycm. One or more of the following dose reduction techniques were utilized: 1.) Automated exposure control 2.) Adjustment of the mA +/- kV according to patient's size 3.) Use of iterative reconstruction technique. COMPARISON: CT BRAIN 09/10/2017 FINDINGS: A right trans frontal ventriculostomy catheter is unchanged with tip located in the anterior third v entricle. Small amount of hemorrhage surrounds the catheter within the right frontal lobe. Hyperdens e intraparenchymal hematoma within the right thalamus and basal ganglia with surrounding cytotoxic e [place] is again demonstrated measuring 3.9 cm x 4.5 cm x 3.9 cm in AP, transverse, and craniocaudal di mensions respectively. On the previous examination this hematoma measures approximately 4.1 cm x 5.1 cm x 4.3 cm . Right to left subfalcine shift at the level of the thalamus measures 10.6 mm and pre viously measured 9.5 mm. There is slight decreased amount of blood present within the right lateral ventricular body and is without significant change in the bilateral atria and occipital horns. Incre ased blood is present within the fourth ventricle. The temporal horns are minimally decreased in siz e but continued to exhibit a ballooned configuration. There is interval loss of the bilateral basal and quadrigeminal cisterns. The cerebellar tonsils are pointed in configuration consistent with downward transtentorial herniation. A retrocerebellar arac hnoid cyst is present measurin 18 mm x 17 mm x 27 mm. Unchanged opacification of the bilateral, left greater than right maxillary and bilateral ethmoid si nuses. IMPRESSION: 1. Interval increased mass effect with complete loss of the bilateral basal and quadrigeminal ciste rns. 2. Mass effect upon the cerebellar tonsils with altered configuration and findings consistent with downward transtentorial herniation. 3. Interval slight increased size of a right to left subfalcine shift measuring approximately 10.6 m m compared to prior examination of 9.5 mm. 4. Minimally decreased size of an intraparenchymal hematoma within the right thalamus and basal [place]. 5. Increased blood within the fourth ventricle. Minimally decreased blood within the right lateral ventricular body. No change within the third ventricle, bilateral atrium and occipital horns. 6. Right transfrontal ventriculostomy catheter with unchanged small hemorrhage in the right frontal lobe. 7. Small retrocerebellar arachnoid cyst. Critical results: The results of this examination were discussed with Dr. Velasquez at 05:00 a.m. on 09/11/2017 by this radiologist. Physician Zoe Date Time Electronically viewed and signed by Physician Zoe on 09/11/2017 05:03 RR/
[2017-09-11] MEDS ORDERED: LIDOCAINE 1%/EPI 30 ML INJ INJ ONE (06:30)
--- NOTE | 2017-09-11 07:16 | RADRPT ---
PROCEDURE: XR Chest. CLINICAL INDICATION: pna chf TECHNIQUE: Single portable view of the chest was obtained COMPARISON: DR TREVIÑO 09/09/2017 FINDINGS: Endotracheal tube terminates 1.5 cm above the negin. Nasogastric tube extends into the stomach. The cardiomediastinal silhouette is enlarged and demonstrates thoracic aortic atherosclerotic change. T here is increased left retrocardiac atelectasis or infiltrates. The right lung is stable. There is n o evidence of a pneumothorax, CHF or pleural effusion. IMPRESSION: 1. Increased left retrocardiac atelectasis or infiltrates. 2. Stable cardiomegaly with thoracic aortic atherosclerotic changes. RPTAT: HRSR Physician Zoe Date Time Electronically viewed and signed by Physician Zoe on 09/11/2017 07:16 RR/
--- NOTE | 2017-09-11 07:34 | OPR ---
Date/Time of Note Date/Time of Note DATE: 09/11/17 TIME: 07:31 Operative Report Procedure Date: Sep 11, 2017 Preoperative Diagnosis Right thalamic ICH with further extension of IVH Transtentorial Herniation Postoperative Diagnosis Same as above Operation/Procedure Performed Revision of right frontal external ventriculostomy drain Surgeon see signature line [employer] Developer None Anesthesia Type: other (local) Estimated Blood Loss: minimal Transfusion none Specimen None Grafts/Implants none Tubes/Drains Right frontal ventriculostomy drain Complications none Pt Condition Post Procedure: critical Disposition: other (In ICU) Indications Right frontal ventriculostomy drain stopped draining. A new ventriculostomy drain being inserted. Procedure Description After obtaining consent from the patient's daughter and , and after multiple attempts at Flushing the ventriculostomy drain proximally and distally without further drainage from the ventriculostomy, a revision of the right frontal ventriculostomy drain was performed at bedside in the intensive care unit. The dressing was removed from the patient's right scalp. After the skin was prepped and draped under standard sterile fashion, local anesthetics were infiltrated into the prior right scalp incision by the [place]'s point. The ventriculostomy drain suture was removed and the ventriculostomy drain was pulled out. The sutures over the right scalp incision were removed. A new ventriculostomy drain was then inserted and more medialized than normal given the [id number] midline shift. A pop was felt through the ependymal surface. Dark blood tinged CSF was seen coming out under relatively low pressure. The distal end of the ventriculostomy drain was then tunneled under the scalp and brought out of the scalp. The drain was then secured with a suture to the skin and connected to the ventriculostomy drainage bag. The skin was then reapproximated with a simple running nylon 3-0 suture. The skin was then covered with Tegaderm dressing. The proximal part of the ventriculostomy drain was then secured to the skin with multiple Tegaderms. The patient tolerated the procedure well. A stat head CT was ordered for the patient to check ventriculostomy drain positioned and to get another follow-up CT given the patient's rapid deterioration. CORNELIUS ELDRIDGE MD Sep 11, 2017 07:33
--- NOTE | 2017-09-11 08:15 | RADRPT ---
PROCEDURE: CT Brain without contrast. CLINICAL INDICATION: Status post repositioning a ventriculostomy catheter, intracranial hemorrhage TECHNIQUE: Routine CT scan of the brain was performed on a high resolution multi detector scanner without intravenous contrast. One or more of the following dose reduction techniques were used: Auto mated exposure control; Adjustment of the mA and/or kV according to patient size; Use of iterative r econstruction technique. CTDI = 44 mGy. DLP = 810 mGy-cm. COMPARISON: CT brain 09/11/2017 FINDINGS: Hemorrhage: Mild improvement in previously seen right basal ganglia and intraventricular hemorrhage distending the lateral ventricles and fourth ventricle. The third ventricle is slit-like in appearan ce. Small amount of previously seen ben-catheter hemorrhage in the right frontal lobe is resolved. Acute ischemic changes: Edema surrounding the intraparenchymal hemorrhage involving the Mass effect: Midline shift of the septum pellucidum to the left is mildly improved now measuring 4 m m. Similar appearance of bilateral tonsillar herniation by approximately 10 mm. Parenchymal volume: Within normal limits for age. Ventricular system: Mild improvement in ventricular caliber as compared to the prior examination. Ri ght frontal ventriculostomy catheter appears to terminate within the periventricular white matter ju st adjacent to the right frontal horn. Similar appearance of obstructive hydrocephalus. Chronic changes: Parenchymal attenuation is within normal limits. Extracranial soft tissues: Small amount of subcutaneous air adjacent to the right frontal ventriculo stomy catheter likely from recent surgical manipulation. Calvarium: No fractures. Paranasal sinuses: Visualized paranasal sinuses are clear. Mastoid air cells: Visualized mastoid air cells are clear. IMPRESSION: Mildly improved intraparenchymal and interventricular hemorrhage. Mildly improved midline shift to the left now measuring 4 mm. Similar appearance of tonsillar herniation. Ventriculostomy catheter appears to terminate within the periventricular white matter immediately ad jacent to the right frontal horn. Critical results were discussed with Nurse Laurence by telephone 09/11/2017 8:09:[address] Felix samaniego RPTAT: AADD .Felix Rodríguez MD, Date Time Electronically viewed and signed by .Felix Rodríguez MDMD on 09/11/2017 08:15 .Sammie
[2017-09-11] MEDS ORDERED: LIDOCAINE 1%/EPI 30 ML INJ INJ STA (08:51)
[2017-09-11] MEDS ORDERED: LIDOCAINE 2%/EPI MPF (SDV) 20 ML VIAL INJ ONE (09:00)
[2017-09-11] MEDS: FAMOTIDINE 20 MG TAB GTB SCH ×2 (09:30→20:44)
[2017-09-11] MEDS: D5-NS + KCL 20 MEQ 1,000 ML IV SCH ×3 (10:35→21:01)
--- NOTE | 2017-09-11 11:56 | CONS ---
Date/Time of Note Date/Time of Note DATE: 09/11/17 TIME: 11:49 Assessment/Plan Assessment/Plan Additional Assessment/Plan To begin with Malik just reviewing patient's chart I will not interact with family members. Patient was brought into the emergency room altered, then intubated workup showed a large acute intra-parenchymal hemorrhage. Please review details in the extensive review by radiologist. Dr. Pierre neurosurgeon was called urgently please refer to detailed intraoperative report. She had comorbid medical problems including obesity hypertension, he remains in the intensive care unit and does not show significant signs of neurological improvement. I will remain available. Consultation Date/Type/Reason Admit Date/Time 09/10/17 Type of Consultation: Palliative care Past Medical History Medical History: no pertinent history Past Surgical History Past Surgical Hx: no surgical history Social History Smoking Status: Unknown if ever smoked Exam/Review of Systems Vital Signs Vitals Vital Signs Date Time Temp Pulse Resp B/P Pulse Ox O2 Delivery O2 Flow Rate FiO2 09/11/17 11:00 76 20 109/69 100 Mechanical Ventilator 09/11/17 09:35 50 09/11/17 08:00 98.7 Intake and Output 09/10/17 09/10/17 09/11/17 15:00 23:00 07:00 Intake Total 878 ml 1508 ml 862.125 ml Output Total 459 ml 449 ml 360 ml Balance 419 ml 1059 ml 502.125 ml Exam Constitutional: other (Intubated) Respiratory: clear to auscultation, normal air movement Cardiovascular: nl pulses, regular rate and rhythm Results Result Diagram: 09/11/17 0522 09/11/17 0522 Results 24 hrs Laboratory Tests Test 09/10/17 12:14 09/10/17 12:58 09/10/17 14:00 09/10/17 15:19 Bedside Glucose 230 H 195 172 217 Test 09/10/17 16:14 09/10/17 16:18 09/10/17 17:08 09/10/17 18:05 Bedside Glucose 256 H 239 H 291 H 216 Test 09/10/17 19:04 09/10/17 20:05 09/10/17 21:01 09/10/17 22:04 Bedside Glucose 166 161 155 202 Test 09/10/17 22:58 09/11/17 00:00 09/11/17 01:03 09/11/17 02:08 Bedside Glucose 167 199 167 Lactate Dehydrogenase 486 Creatine Kinase 114 Creatine Kinase Index 0.2 Creatinine Kinase MB (Mass) < 0.22 Troponin I 0.040 Test 09/11/17 02:14 09/11/17 03:13 09/11/17 04:56 09/11/17 05:22 Bedside Glucose 164 154 84 White Blood Count 12.9 H Red Blood Count 3.72 L Hemoglobin 12.7 L Hematocrit 36.3 L Mean Corpuscular Volume 97.6 Mean Corpuscular Hemoglobin 34.1 H Mean Corpuscular Hemoglobin Concent 35.0 Red Cell Distribution Width 12.8 Platelet Count 185 Mean Platelet Volume 10.8 H Neutrophils % 82.6 H Lymphocytes % 8.6 L Monocytes % 8.1 Eosinophils % 0.0 Basophils % 0.2 Nucleated Red Blood Cells % 0.0 Neutrophils # 10.7 H Lymphocytes # 1.1 Monocytes # 1.0 H Eosinophils # 0.0 Basophils # 0.0 Nucleated Red Blood Cells # 0.0 Sodium Level 150 H Potassium Level 4.1 Chloride Level 115 H Carbon Dioxide Level 25 Anion Gap 14 Blood Urea Nitrogen 26 H Creatinine 1.55 H Glucose Level 79 # Calcium Level 8.3 L Phosphorus Level 3.7 Magnesium Level 2.3 Test 09/11/17 05:55 09/11/17 07:00 09/11/17 07:27 09/11/17 09:02 Bedside Glucose 107 155 184 Blood Gas Specimen Source Blood arterial Arterial Blood Date Drawn 09/11/2017 7:30:16 AM Arterial Blood pH (Temp corrected) 7.445 Arterial Blood pCO2 (Temp correct) 34.5 L Arterial Blood pO2 (Temp corrected) 107.2 H Arterial Blood HCO3 23.2 Arterial Blood Base Excess -0.3 Arterial Blood Oxygen Saturation 98.0 Chadd Test ACCEPTAB Arterial Blood Gas Puncture Site Right Radial Arterial Blood Carboxyhemoglobin 0.3 Arterial Blood Methemoglobin 0.3 Blood Gas A-a O2 Differential 210.5 H Oxyhemoglobin Percent 97.4 Total Hemoglobin 14.5 Blood Gas Temperature 37.0 Blood Gas Respiration Rate 20.0 Blood Gas Actual Respiration Rate 20 Blood Gas Modality VENT - AC FiO2 50.0 Blood Gas Tidal Volume 500.0 Blood Gas Low PEEP Setting 5.0 Blood Gas Notified Whom JLD Blood Gas Notified Time 09/11/2017 7:58:18 AM Test 09/11/17 10:10 09/11/17 11:09 Bedside Glucose 167 140 Medications Medications Current Medications Ondansetron HCl (Zofran Inj) 4 mg Q6H PRN IV NAUSEA AND/OR VOMITING; Start 09/09/17 at 23:30 Acetaminophen (Tylenol Supp) 650 mg Q4H PRN [place] PAIN LEVEL 1-3 OR FEVER; Start 09/09/17 at 23:30 Diagnostic Test (Pha) (Accu-Chek) 1 ea 02 XX Last administered on 09/10/17 03: 00; Admin Dose 1 EA; Start 09/10/17 at 02:00 Miscellaneous Information 1 ea 1 ea NOTE XX ; Start 09/09/17 at 23:45 Potassium Chloride/Dextrose/ Sod Cl 1,000 ml @ 100 mls/hr Q10H IV Last administered on 09/11/17 10:35; Admin Dose 100 MLS/HR; Start 09/10/17 at 00:00 Propofol (Diprivan) 100 ml @ 3 mls/hr Q12H IV Last administered on 09/11/17 00 :06; Admin Dose 24 MLS/HR; Start 09/10/17 at 03:30 Lorazepam (Ativan) 2 mg Q4H PRN IV AGITATION Last administered on 09/10/17 23: 03; Admin Dose 2 MG; Start 09/10/17 at 07:00 Diagnostic Test (Pha) (Accu-Chek) 1 ea Q1H XX Last administered on 09/11/17 11 :44; Admin Dose 1 EA; Start 09/10/17 at 09:00 Dextrose (D50w Syringe) 25 ml Q15M PRN IV Till BS 80 mg/dL or above x2; Start 09/10/17 at 09:00 Dextrose (D50w Syringe) 50 ml Q15M PRN IV Till BS 80 mg/dL or above x2; Start 09/10/17 at 09:00 Famotidine (Pepcid) 20 mg BID GTB Last administered on 09/10/17 23:12; Admin Dose 20 MG; Start 09/10/17 at 21:00 Acetaminophen 650 mg 650 mg Q4H PRN PO PAIN AND OR ELEVATED TEMP Last administered on 09/10/17 23:58; Admin Dose 650 MG; Start 09/11/17 at 00:00 Norepinephrine/ Dextrose (Levophed/D5W) 500 ml @ 1.87 mls/hr TITRATE IV ; Start 09/11/17 at 09:00 MODESTO CROUCH Sep 11, 2017 11:56
--- NOTE | 2017-09-11 12:12 | CONS ---
Date/Time of Note Date/Time of Note DATE: 09/11/17 TIME: 12:10 Consult Date/Type/Reason Admit Date/Time Sep 09, 2017 at 23:17 Initial Consult Date 09/10/17 Type of Consultation: Pulmonary Ordering Provider: ISAK ANDRE Subjective Patient remains somnolent on mechanical ventilation. Ventricular drain replaced today. Objective Vital Signs Date Time Temp Pulse Resp B/P Pulse Ox O2 Delivery O2 Flow Rate FiO2 09/11/17 11:00 76 20 109/69 100 Mechanical Ventilator 09/11/17 09:35 50 09/11/17 08:00 98.7 Intake and Output 09/10/17 09/10/17 09/11/17 15:00 23:00 07:00 Intake Total 878 ml 1508 ml 862.125 ml Output Total 459 ml 449 ml 360 ml Balance 419 ml 1059 ml 502.125 ml Exam PHYSICAL EXAMINATION: GENERAL: Well-nourished, well-developed gentleman, intubated on mechanical ventilation, sedated, appears comfortable at rest, no acute distress. VITAL SIGNS: As above. HEENT: Orally intubated. Moist mucous membranes. CARDIAC: S1, S2, no added sounds or murmurs. CHEST: Diminished air entry bilaterally. ABDOMEN: Soft, nontender. No guarding or rebound. EXTREMITIES: No cyanosis, clubbing, edema. NEUROLOGIC: Unable to assess at present. Results/Medications Result Diagram: 09/11/17 0522 09/11/17 0522 Results 24 hrs Laboratory Tests Test 09/10/17 12:14 09/10/17 12:58 09/10/17 14:00 09/10/17 15:19 Bedside Glucose 230 H 195 172 217 Test 09/10/17 16:14 09/10/17 16:18 09/10/17 17:08 09/10/17 18:05 Bedside Glucose 256 H 239 H 291 H 216 Test 09/10/17 19:04 09/10/17 20:05 09/10/17 21:01 09/10/17 22:04 Bedside Glucose 166 161 155 202 Test 09/10/17 22:58 09/11/17 00:00 09/11/17 01:03 09/11/17 02:08 Bedside Glucose 167 199 167 Lactate Dehydrogenase 486 Creatine Kinase 114 Creatine Kinase Index 0.2 Creatinine Kinase MB (Mass) < 0.22 Troponin I 0.040 Test 09/11/17 02:14 09/11/17 03:13 09/11/17 04:56 09/11/17 05:22 Bedside Glucose 164 154 84 White Blood Count 12.9 H Red Blood Count 3.72 L Hemoglobin 12.7 L Hematocrit 36.3 L Mean Corpuscular Volume 97.6 Mean Corpuscular Hemoglobin 34.1 H Mean Corpuscular Hemoglobin Concent 35.0 Red Cell Distribution Width 12.8 Platelet Count 185 Mean Platelet Volume 10.8 H Neutrophils % 82.6 H Lymphocytes % 8.6 L Monocytes % 8.1 Eosinophils % 0.0 Basophils % 0.2 Nucleated Red Blood Cells % 0.0 Neutrophils # 10.7 H Lymphocytes # 1.1 Monocytes # 1.0 H Eosinophils # 0.0 Basophils # 0.0 Nucleated Red Blood Cells # 0.0 Sodium Level 150 H Potassium Level 4.1 Chloride Level 115 H Carbon Dioxide Level 25 Anion Gap 14 Blood Urea Nitrogen 26 H Creatinine 1.55 H Glucose Level 79 # Calcium Level 8.3 L Phosphorus Level 3.7 Magnesium Level 2.3 Test 09/11/17 05:55 09/11/17 07:00 09/11/17 07:27 09/11/17 09:02 Bedside Glucose 107 155 184 Blood Gas Specimen Source Blood arterial Arterial Blood Date Drawn 09/11/2017 7:30:16 AM Arterial Blood pH (Temp corrected) 7.445 Arterial Blood pCO2 (Temp correct) 34.5 L Arterial Blood pO2 (Temp corrected) 107.2 H Arterial Blood HCO3 23.2 Arterial Blood Base Excess -0.3 Arterial Blood Oxygen Saturation 98.0 Chadd Test ACCEPTAB Arterial Blood Gas Puncture Site Right Radial Arterial Blood Carboxyhemoglobin 0.3 Arterial Blood Methemoglobin 0.3 Blood Gas A-a O2 Differential 210.5 H Oxyhemoglobin Percent 97.4 Total Hemoglobin 14.5 Blood Gas Temperature 37.0 Blood Gas Respiration Rate 20.0 Blood Gas Actual Respiration Rate 20 Blood Gas Modality VENT - AC FiO2 50.0 Blood Gas Tidal Volume 500.0 Blood Gas Low PEEP Setting 5.0 Blood Gas Notified Whom JLD Blood Gas Notified Time 09/11/2017 7:58:18 AM Test 09/11/17 10:10 09/11/17 11:09 Bedside Glucose 167 140 Medications Current Medications Ondansetron HCl (Zofran Inj) 4 mg Q6H PRN IV NAUSEA AND/OR VOMITING; Start 09/09/17 at 23:30 Acetaminophen (Tylenol Supp) 650 mg Q4H PRN [place] PAIN LEVEL 1-3 OR FEVER; Start 09/09/17 at 23:30 Diagnostic Test (Pha) (Accu-Chek) 1 ea 02 XX Last administered on 09/10/17 03: 00; Admin Dose 1 EA; Start 09/10/17 at 02:00 Miscellaneous Information 1 ea 1 ea NOTE XX ; Start 09/09/17 at 23:45 Potassium Chloride/Dextrose/ Sod Cl 1,000 ml @ 100 mls/hr Q10H IV Last administered on 09/11/17 10:35; Admin Dose 100 MLS/HR; Start 09/10/17 at 00:00 Propofol (Diprivan) 100 ml @ 3 mls/hr Q12H IV Last administered on 09/11/17 00 :06; Admin Dose 24 MLS/HR; Start 09/10/17 at 03:30 Lorazepam (Ativan) 2 mg Q4H PRN IV AGITATION Last administered on 09/10/17 23: 03; Admin Dose 2 MG; Start 09/10/17 at 07:00 Diagnostic Test (Pha) (Accu-Chek) 1 ea Q1H XX Last administered on 09/11/17 11 :44; Admin Dose 1 EA; Start 09/10/17 at 09:00 Dextrose (D50w Syringe) 25 ml Q15M PRN IV Till BS 80 mg/dL or above x2; Start 09/10/17 at 09:00 Dextrose (D50w Syringe) 50 ml Q15M PRN IV Till BS 80 mg/dL or above x2; Start 09/10/17 at 09:00 Famotidine (Pepcid) 20 mg BID GTB Last administered on 09/10/17 23:12; Admin Dose 20 MG; Start 09/10/17 at 21:00 Acetaminophen 650 mg 650 mg Q4H PRN PO PAIN AND OR ELEVATED TEMP Last administered on 09/10/17 23:58; Admin Dose 650 MG; Start 09/11/17 at 00:00 Norepinephrine/ Dextrose (Levophed/D5W) 500 ml @ 1.87 mls/hr TITRATE IV ; Start 09/11/17 at 09:00 Assessment/Plan Chief Complaint/Hosp Course Assessment 1. Acute intracerebral bleed status post ventriculostomy. CT shows significant bleeding possible early herniation. 2. Altered mental status secondary to above. 3. Hypoxemic respiratory failure secondary to ICH. 4. Hypoglycemia, possible underlying diabetes mellitus. Plan 1. Continue mechanical ventilation. 2. Serial CT of the brain. 3. Seizure prophylaxis. 4. Continue IV insulin l. Case was discussed with family by neurosurgery and primary care team at length today. They understand poor prognosis. The patient remains full code. Problems: EMMANUEL SANTA MD, [facility] Sep 11, 2017 12:12
--- NOTE | 2017-09-11 14:11 | RADRPT ---
Vent Rate: 99 bpm RR Interval: 0 msec HI Interval: 162 msec QRS Duration: 86 msec QT Interval: 364 msec QTC Interval: 467 msec P-R-T [place]: 48 - 0 - 67 degrees Normal sinus rhythm Possible Inferior infarct , age undetermined T wave abnormality, consider lateral ischemia Abnormal ECG Electronically Signed By: Bud Rios [id number]
--- NOTE | 2017-09-11 14:11 | RADRPT ---
Vent Rate: 99 bpm RR Interval: 0 msec AL Interval: 162 msec QRS Duration: 86 msec QT Interval: 364 msec QTC Interval: 467 msec P-R-T [place]: 48 - 0 - 67 degrees Normal sinus rhythm Possible Inferior infarct , age undetermined T wave abnormality, consider lateral ischemia Abnormal ECG Electronically Signed By: Bud Rios [id number]
--- NOTE | 2017-09-11 14:11 | RADRPT ---
Vent Rate: 99 bpm RR Interval: 0 msec ND Interval: 162 msec QRS Duration: 86 msec QT Interval: 364 msec QTC Interval: 467 msec P-R-T [place]: 48 - 0 - 67 degrees Normal sinus rhythm Possible Inferior infarct , age undetermined T wave abnormality, consider lateral ischemia Abnormal ECG Electronically Signed By: Bud Rios [id number]
--- NOTE | 2017-09-11 15:08 | PN ---
Date/Time of Note Date/Time of Note DATE: 09/11/17 TIME: 15:00 Assessment/Plan VTE Prophylaxis VTE Prophylaxis Intervention: SCD's Lines/Catheters IV [facility]from [facility] Peripheral IV Urinary Cath still in place: Yes Reason Cath still needed: other (indicate) (critically ill) Assessment/Plan Assessment/Plan 57 yo M admitted following spontaneous right thalamic ICH sp ventriculostomy 11.1, additional drainage catheter placement revision 11.2 and 11.3 PLAN neuro: ICH: EVDs have clotted---no further procedural intervention per neurosurg , cont BP and BG control. AED prophx defer EEG as patient does not meet brain criteria at this time. neurology also on consult pulm: cont mechanical ventilation CV: BP control as above Endo: insulin drip, a1c 7.6 FEN: TFs Prophx: H2B while intubated, SCDs only for DVT prophx goals of care: I was present this morning during the neurosurgeon's conversation with the family during which he repeatedly informed them that given the size of pt's brain bleed, the brain damage pt has suffered is irreversible. Additional temporizing measures including hypernatremia, very tight BP control, additional ventriculostomy drainage has not prevented worsening of pt's ICH. I spoke with additional members of patient's family this afternoon and discussed with them that though pt does not technically meet brain criteria at this time, given the worsening bleeding and resultant cerebral edema, brain will occur within hours to days. I also discussed with family that degree of brain damage patient has sustained is not reversible. Discussed code status with pt's family. Daughter requesting FULL CODE at this time. Dw daughter that even if CRP administered, it will not change pt's unfortunate outcome. critical care time: 60 minutes much of which was spent talking to patient's family Subjective 24 Hr Interval Summary Free Text/Dictation imaging with worsening ICH this AM, also deteriorating neurologic status--> pupils less responsive Exam/Review of Systems Vital Signs Vitals Vital Signs Date Time Temp Pulse Resp B/P Pulse Ox O2 Delivery O2 Flow Rate FiO2 09/11/17 14:00 70 20 127/81 100 Mechanical Ventilator 09/11/17 12:00 98.0 09/11/17 09:35 50 Intake and Output 09/10/17 09/10/17 09/11/17 15:00 23:00 07:00 Intake Total 878 ml 1508 ml 862.125 ml Output Total 459 ml 449 ml 360 ml Balance 419 ml 1059 ml 502.125 ml Exam no sedation does not respond to pain L pupil mid range and fixed. R pupil very sluggish and minimally reactive to light no mrg lungs clear abd soft no rashes Results Result Diagram: 09/11/1752109/11/17521 Results 24 hrs Laboratory Tests Test 09/10/17 15:19 09/10/17 16:14 09/10/17 16:18 09/10/17 17:08 Bedside Glucose 217 256 H 239 H 291 H Test 09/10/17 18:05 09/10/17 19:04 09/10/17 20:05 09/10/17 21:01 Bedside Glucose 216 166 161 155 Test 09/10/17 22:04 09/10/17 22:58 09/11/17 00:00 09/11/17 01:03 Bedside Glucose 202 167 199 167 Test 09/11/17 02:08 09/11/17 02:14 09/11/17 03:13 09/11/17 04:56 Lactate Dehydrogenase 486 Creatine Kinase 114 Creatine Kinase Index 0.2 Creatinine Kinase MB (Mass) < 0.22 Troponin I 0.040 Bedside Glucose 164 154 84 Test 09/11/17 05:22 09/11/17 05:55 09/11/17 07:00 09/11/17 07:27 White Blood Count 12.9 H Red Blood Count 3.72 L Hemoglobin 12.7 L Hematocrit 36.3 L Mean Corpuscular Volume 97.6 Mean Corpuscular Hemoglobin 34.1 H Mean Corpuscular Hemoglobin Concent 35.0 Red Cell Distribution Width 12.8 Platelet Count 185 Mean Platelet Volume 10.8 H Neutrophils % 82.6 H Lymphocytes % 8.6 L Monocytes % 8.1 Eosinophils % 0.0 Basophils % 0.2 Nucleated Red Blood Cells % 0.0 Neutrophils # 10.7 H Lymphocytes # 1.1 Monocytes # 1.0 H Eosinophils # 0.0 Basophils # 0.0 Nucleated Red Blood Cells # 0.0 Sodium Level 150 H Potassium Level 4.1 Chloride Level 115 H Carbon Dioxide Level 25 Anion Gap 14 Blood Urea Nitrogen 26 H Creatinine 1.55 H Glucose Level 79 # Calcium Level 8.3 L Phosphorus Level 3.7 Magnesium Level 2.3 Bedside Glucose 107 155 Blood Gas Specimen Source Blood arterial Arterial Blood Date Drawn 09/11/2017 7:30:16 AM Arterial Blood pH (Temp corrected) 7.445 Arterial Blood pCO2 (Temp correct) 34.5 L Arterial Blood pO2 (Temp corrected) 107.2 H Arterial Blood HCO3 23.2 Arterial Blood Base Excess -0.3 Arterial Blood Oxygen Saturation 98.0 Chadd Test ACCEPTAB Arterial Blood Gas Puncture Site Right Radial Arterial Blood Carboxyhemoglobin 0.3 Arterial Blood Methemoglobin 0.3 Blood Gas A-a O2 Differential 210.5 H Oxyhemoglobin Percent 97.4 Total Hemoglobin 14.5 Blood Gas Temperature 37.0 Blood Gas Respiration Rate 20.0 Blood Gas Actual Respiration Rate 20 Blood Gas Modality VENT - AC FiO2 50.0 Blood Gas Tidal Volume 500.0 Blood Gas Low PEEP Setting 5.0 Blood Gas Notified Whom JLD Blood Gas Notified Time 09/11/2017 7:58:18 AM Test 09/11/17 09:02 09/11/17 10:10 09/11/17 11:09 09/11/17 11:52 Bedside Glucose 184 167 140 Creatine Kinase 98 Creatine Kinase Index 0.2 Creatinine Kinase MB (Mass) < 0.22 Troponin I 0.016 Test 09/11/17 12:04 09/11/17 13:32 09/11/17 14:29 Bedside Glucose 124 109 112 Medications Medications Current Medications Ondansetron HCl (Zofran Inj) 4 mg Q6H PRN IV NAUSEA AND/OR VOMITING; Start 09/09/17 at 23:30 Acetaminophen (Tylenol Supp) 650 mg Q4H PRN [place] PAIN LEVEL 1-3 OR FEVER; Start 09/09/17 at 23:30 Diagnostic Test (Pha) (Accu-Chek) 1 ea 02 XX Last administered on 09/10/17 03: 00; Admin Dose 1 EA; Start 09/10/17 at 02:00 Miscellaneous Information 1 ea 1 ea NOTE XX ; Start 09/09/17 at 23:45 Potassium Chloride/Dextrose/ Sod Cl 1,000 ml @ 100 mls/hr Q10H IV Last administered on 09/11/17 10:35; Admin Dose 100 MLS/HR; Start 09/10/17 at 00:00 Propofol (Diprivan) 100 ml @ 3 mls/hr Q12H IV Last administered on 09/11/17 00 :06; Admin Dose 24 MLS/HR; Start 09/10/17 at 03:30 Lorazepam (Ativan) 2 mg Q4H PRN IV AGITATION Last administered on 09/10/17 23: 03; Admin Dose 2 MG; Start 09/10/17 at 07:00 Diagnostic Test (Pha) (Accu-Chek) 1 ea Q1H XX Last administered on 09/11/17 14 :53; Admin Dose 1 EA; Start 09/10/17 at 09:00 Dextrose (D50w Syringe) 25 ml Q15M PRN IV Till BS 80 mg/dL or above x2; Start 09/10/17 at 09:00 Dextrose (D50w Syringe) 50 ml Q15M PRN IV Till BS 80 mg/dL or above x2; Start 09/10/17 at 09:00 Famotidine (Pepcid) 20 mg BID GTB Last administered on 09/10/17 23:12; Admin Dose 20 MG; Start 09/10/17 at 21:00 Acetaminophen 650 mg 650 mg Q4H PRN PO PAIN AND OR ELEVATED TEMP Last administered on 09/10/17 23:58; Admin Dose 650 MG; Start 09/11/17 at 00:00 Norepinephrine/ Dextrose (Levophed/D5W) 500 ml @ 1.87 mls/hr TITRATE IV ; Start 09/11/17 at 09:00 NATE TARANGO MD Sep 11, 2017 15:08
[2017-09-11] MEDS: INSULIN HUMAN REGULAR 100 UNIT in SOD CHLORIDE 0.9% 99 ML IV SCH (16:22)
--- NOTE | 2017-09-11 18:49 | OPR ---
Date/Time of Note Date/Time of Note DATE: 09/11/17 TIME: 10:00 Operative Report Preoperative Diagnosis Large right thalamic ICH with further catastrophic extension of IVH Transtentorial herniation Postoperative Diagnosis Same as above Operation/Procedure Performed Another revision of frontal external ventriculostomy drain Surgeon see signature line Infection Prevention Coordinator None Anesthesia Type: other (Local) Estimated Blood Loss: minimal Transfusion none Specimen None Grafts/Implants none Tubes/Drains Right frontal external ventriculostomy drain Complications none Pt Condition Post Procedure: critical Disposition: PACU, other (In ICU) Indications Although the newly placed right frontal ventriculostomy drain was draining, it soon again stopped draining as there was thick dark blood that cause it to clog again. The stat head CT that was done showed the tip of the right frontal ventriculostomy drain to be right at the right frontal horn. However, unfortunately the new CT showed that there was further bleeding from the right thalamic ICH into the third and fourth ventricles and further mass effect. There was also further transtentorial herniation and complete effacement of the basal cisterns. I explained in great detail to the patient's daughter, and the patient's brother and showed done the initial CT at the time of arrival and multiple follow-up CTs including the most recent CT that was just done a few minutes ago showing that the patient came in with a large thalamic ICH with large IVH that has expanded overnight and caused transtentorial herniation. I explained to them that the patient came in critically and unfortunately has become even more ill overnight with very grim prognosis given his poor neurologic exam and the new CT findings. I've explained to them that we can attempt one more time to reinsert an Ventriculostomy drain although the new drain will not be able to undo the damages that have been done. Family fully understands this and wish to have me try one more time to place a new ventriculostomy drain. Procedure Description After obtaining another consent from the patient's daughter and , and after multiple attempts at flushing the ventriculostomy drain proximally and distally without further drainage from the ventriculostomy, a revision of the right frontal ventriculostomy drain was performed at bedside in the intensive care unit. The dressing was removed from the patient's right scalp. After the skin was prepped and draped under standard sterile fashion, local anesthetics were infiltrated into the prior right scalp incision by the Binh's point. The revised ventriculostomy drain suture was removed and the ventriculostomy drain was pulled out. The sutures over the right scalp incision were removed. A new ventriculostomy drain was then inserted and more medialized than normal given the [id number] midline shift. A pop was felt through the ependymal surface. Very dark blood tinged CSF was seen coming out under relatively low pressure. The distal end of the ventriculostomy drain was then tunneled under the scalp and brought out of the scalp. The drain was then secured with a suture to the skin and connected to the ventriculostomy drainage bag. The skin was then reapproximated with a simple running nylon 3-0 suture. The skin was then covered with Tegaderm dressing. The proximal part of the ventriculostomy drain was then secured to the skin with multiple Tegaderms. The patient tolerated the procedure well. The ventriculostomy drain was again checked. The ventriculostomy drain was checked again a number of minutes later and it was still dripping dark red blood under low pressure. CORNELIUS ELDRIDGE MD Sep 11, 2017 18:49
--- NOTE | 2017-09-11 18:50 | PN ---
Date/Time of Note Date/Time of Note DATE: 09/11/17 TIME: 11:00 Assessment/Plan VTE Prophylaxis VTE Prophylaxis Intervention: SCD's Lines/Catheters IV Catheter Type (from Nrsg): Peripheral IV Urinary Cath still in place: Yes Reason Cath still needed: terminal illness/intractable pain Assessment/Plan Assessment/Plan Date of progress note: 09/11/2017 The patient earlier this morning had a sudden onset fever and hypotension systolic blood pressure dropping to 70s that required him to be put on vasopressors for hemodynamic instability. It was also noted that although the patient's ventriculostomy drain had been draining hourly it was no longer draining. The hospitalist and myself were notified. EKG was done as part of workup for the new onset hypotension that showed T-wave inversions per the hospitalist. His pupils also became dilated with the right pupil being 4-5mm nonreactive, left pupil 4mm nonreactive. The patient who had been moving his upper extremities purposefully more on the right than the left and was withdrawing bilateral lower extremities more on the right than the left up until earlier this morning when the acute hypotension began, is no longer moving his upper or lower extremities even to deep pain. 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 I discussed these findings in great detail with the patient's daughter, Diane and explained to her that as we had discussed in the emergency department her father sustained severe injury to his brain as a result of the hemorrhagic stroke at the time of arrival to the emergency department and was in critical condition the time of arrival. Unfortunately, the patient has sustained further severe injury to his brain and specifically to the brainstem as a result of further hemorrhage into the ventricles causing transtentorial herniation as evidenced by the CT findings and the neurologic exam. I explained that we can reinsert a new ventriculostomy drain but even with the new drain the severe injury cannot be reversed. The right frontal ventriculostomy drain was revised as dictated in a separate operative report. Soon after placement, the ventriculostomy drain again stopped draining due to the fact that there was based thick dark red blood within the ventricles causing the ventriculostomy to drain. The new head CT that was done stat showed that the patient now had even more hemorrhage into the third and fourth ventricles causing even more mass effect and further effacement of the basal cisterns and transtentorial herniation. The patient's pupils became 5 mm bilaterally and nonreactive and he was having no movements of his upper or lower extremities even to deep pain. I showed the patient's other daughter, the patient's and the patient's brother in the ICU the various head CTs that had been done since the patient's arrival on the computer screen [id number] explaining that the patient's initial head CT showed a very large thalamic ICH with intraventricular extension with already poor prognosis. However, unfortunately it was further acute hemorrhage into the ventricles causing further severe injury to the brainstem. It was further explained to the patient's family that I can try to revise the final ventriculostomy drain again although this procedure would again not be able to reverse any of the severe brainstem injury that had occurred. Per the patient's family's wishes the ventriculostomy drain was revised another time and it was again draining dark red blood. The pressure was not elevated. It was also explained to the family that most probably the ventriculostomy drain would again become clogged soon after reinsertion due to the thick intraventricular hemorrhage. It was also explained that any further attempt at reinserting the ventriculostomy drain would not be of any further benefit to the patient. The family fully understood the discussion and wished to have the patient's other siblings from [place] to come in to see the patient who is in very critical condition with very poor prognosis. The hospitalist, Dr. Ann was also next to me while I showed the imaging studies to the patient's family gave a detailed explanation regarding the patient's very ill condition. CORNELIUS ELDRIDGE MD Sep 11, 2017 18:50
[2017-09-12] VITALS (66 sets, daily range): BP systolic 91–145; BP diastolic 57–92; PULSE 72–90; RESP 6–20
[2017-09-12] MEDS: ACCU-CHEK XX SCH ×23 (01:00→22:25)
[2017-09-12] MEDS: PROPOFOL 100 ML IV SCH ×2 (03:30→14:41)
[2017-09-12] MEDS: D5-NS + KCL 20 MEQ 1,000 ML IV SCH (06:09)
[2017-09-12] MEDS: FAMOTIDINE 20 MG TAB GTB SCH (09:12)
--- NOTE | 2017-09-12 09:15 | RADRPT ---
PROCEDURE: XR Chest. CLINICAL INDICATION: pna chf TECHNIQUE: Single portable view of the chest was obtained COMPARISON: 09/11/2017. FINDINGS: An endotracheal tube terminates 5 cm above the negin. A nasogastric tube extends below the left hem idiaphragm. This cardiomediastinal silhouette is enlarged. Thoracic aortic atherosclerotic changes are noted. In creased right retrocardiac opacification possibly secondary to patient rotation. Patchy bibasilar urban bsegmental atelectasis more significant on the left side. No CHF or pleural effusion. IMPRESSION: 1. Support lines and tubes in satisfactory position. 2. Patchy bibasilar subsegmental atelectasis. 3. Increase right retrocardiac opacification possibly secondary to patient rotation. RPTAT: HRSR Physician Zoe Date Time Electronically viewed and signed by Wing Sales Physician on 09/12/2017 09:15 RR/
[2017-09-12] MEDS: INSULIN HUMAN REGULAR 100 UNIT in SOD CHLORIDE 0.9% 99 ML IV SCH (09:27)
[2017-09-12] MEDS: DEXTROSE 5%-0.9% NACL 1,000 ML IV SCH ×3 (09:27→19:30)
--- NOTE | 2017-09-12 11:47 | CONS ---
Date/Time of Note Date/Time of Note DATE: 09/12/17 TIME: 11:44 Consult Date/Type/Reason Admit Date/Time Sep 09, 2017 at 23:17 Initial Consult Date 09/10/17 Type of Consultation: Pulmonary/CCM Ordering Provider: ISAK ANDRE Subjective Unresponsive on the vent. Objective Vital Signs Date Time Temp Pulse Resp B/P Pulse Ox O2 Delivery O2 Flow Rate FiO2 09/12/17 10:00 84 20 107/76 99 Mechanical Ventilator 09/12/17 10:00 70 09/12/17 08:00 98.1 Intake and Output 09/11/17 09/11/17 09/12/17 15:00 23:00 07:00 Intake Total 855.0 ml 1026.99 ml 1199.08 ml Output Total 969 ml 835 ml 385 ml Balance -114.0 ml 191.99 ml 814.08 ml Exam HEENT: Neck supple; no JVD; no LAD CVS: RRR, S1 and S2 CHEST: Clear ABD: Soft, NT, + BS EXT: No c/c/e NEURO: Flaccid; not overbreathing the vent; pupils fixed and dilated; no GAG; no corneal reflex Results/Medications Result Diagram: 09/12/17 0510 09/12/17 0510 Results 24 hrs Laboratory Tests Test 09/11/17 11:52 09/11/17 12:04 09/11/17 13:32 09/11/17 14:29 Creatine Kinase 98 Creatine Kinase Index 0.2 Creatinine Kinase MB (Mass) < 0.22 Troponin I 0.016 Bedside Glucose 124 109 112 Test 09/11/17 15:20 09/11/17 16:20 09/11/17 17:09 09/11/17 18:11 Bedside Glucose 115 116 125 134 Test 09/11/17 18:33 09/11/17 19:31 09/11/17 21:32 09/11/17 23:27 Creatine Kinase 91 Creatine Kinase Index 0.2 Creatinine Kinase MB (Mass) < 0.22 Troponin I < 0.012 Bedside Glucose 166 146 136 Test 09/12/17 01:53 09/12/17 04:20 09/12/17 05:10 09/12/17 06:00 Bedside Glucose 148 150 179 White Blood Count 26.4 #H Red Blood Count 3.96 L Hemoglobin 13.0 L Hematocrit 41.4 L Mean Corpuscular Volume 104.5 H Mean Corpuscular Hemoglobin 32.8 Mean Corpuscular Hemoglobin Concent 31.4 L Red Cell Distribution Width 13.8 Platelet Count 108 #L Mean Platelet Volume 10.8 H Neutrophils % Segmented Neutrophils % (Manual) 68 Band Neutrophils % (Manual) 21 H Lymphocytes % Lymphocytes % (Manual) 4 L Monocytes % Monocytes % (Manual) 3 Eosinophils % Eosinophils % (Manual) 1 Basophils % Metamyelocytes % (manual) 1 H Myelocytes % (Manual) 2 H Nucleated Red Blood Cells % 4 H Neutrophils # Neutrophils # (Manual) 19.4 H Band Neutrophils # 5.5 H Absolute Lymphocytes (Manual) 1.0 Lymphocytes # Monocytes # Absolute Monocytes (Manual) 0.7 Eosinophils # Basophils # Metamyelocytes # 0.2 H Myelocytes # 0.5 H Nucleated Red Blood Cells # Platelet Estimate DECREASED Giant Platelets 1 H Sodium Level 153 H Potassium Level 5.5 H Chloride Level 123 H Carbon Dioxide Level 22 Anion Gap 14 Blood Urea Nitrogen 35 H Creatinine 3.19 #H Glucose Level 233 #H Calcium Level 8.1 L Test 09/12/17 07:00 09/12/17 08:20 09/12/17 10:24 Blood Gas Specimen Source Blood arterial Arterial Blood Date Drawn 09/12/2017 8:35:51 AM Arterial Blood pH (Temp corrected) 7.304 L Arterial Blood pCO2 (Temp correct) 43.1 Arterial Blood pO2 (Temp corrected) 167.0 H Arterial Blood HCO3 20.9 L Arterial Blood Base Excess -5.2 L Arterial Blood Oxygen Saturation 98.9 H Chadd Test ACCEPTAB Arterial Blood Gas Puncture Site Right Radial Arterial Blood Carboxyhemoglobin 0.2 Arterial Blood Methemoglobin 0.4 Blood Gas A-a O2 Differential 358.2 H Oxyhemoglobin Percent 98.3 Total Hemoglobin 13.3 Blood Gas Temperature 37.0 Blood Gas Respiration Rate 20.0 Blood Gas Actual Respiration Rate 20 Blood Gas Modality VENT - AC FiO2 80.0 Blood Gas Tidal Volume 500.0 Blood Gas Low PEEP Setting 10.0 Blood Gas Notified Whom DT Blood Gas Notified Time 09/12/2017 8:54:56 AM Bedside Glucose 145 127 Medications Current Medications Ondansetron HCl (Zofran Inj) 4 mg Q6H PRN IV NAUSEA AND/OR VOMITING; Start 09/09/17 at 23:30 Acetaminophen (Tylenol Supp) 650 mg Q4H PRN [place] PAIN LEVEL 1-3 OR FEVER; Start 09/09/17 at 23:30 Diagnostic Test (Pha) (Accu-Chek) 1 ea 02 XX Last administered on 09/12/17 02: 10; Admin Dose 1 EA; Start 09/10/17 at 02:00 Miscellaneous Information 1 ea 1 ea NOTE XX ; Start 09/09/17 at 23:45 Propofol (Diprivan) 100 ml @ 3 mls/hr Q12H IV Last administered on 09/11/17 00 :06; Admin Dose 24 MLS/HR; Start 09/10/17 at 03:30 Lorazepam (Ativan) 2 mg Q4H PRN IV AGITATION Last administered on 09/10/17 23: 03; Admin Dose 2 MG; Start 09/10/17 at 07:00 Diagnostic Test (Pha) (Accu-Chek) 1 ea Q1H XX Last administered on 09/12/17 08 :58; Admin Dose 1 EA; Start 09/10/17 at 09:00 Dextrose (D50w Syringe) 25 ml Q15M PRN IV Till BS 80 mg/dL or above x2; Start 09/10/17 at 09:00 Dextrose (D50w Syringe) 50 ml Q15M PRN IV Till BS 80 mg/dL or above x2; Start 09/10/17 at 09:00 Famotidine (Pepcid) 20 mg BID GTB Last administered on 09/12/17 09:12; Admin Dose 20 MG; Start 09/10/17 at 21:00 Acetaminophen 650 mg 650 mg Q4H PRN PO PAIN AND OR ELEVATED TEMP Last administered on 09/10/17 23:58; Admin Dose 650 MG; Start 09/11/17 at 00:00 Norepinephrine 16 mg/Dextrose 500 ml @ 1.87 mls/hr TITRATE IV Last administered on 09/11/17 18:26; Admin Dose 9.37 MLS/HR; Start 09/11/17 at 09:00 Dextrose/Sodium Chloride (D5-NS) 1,000 ml @ 100 mls/hr Q10H IV Last administered on 09/12/17 09:27; Admin Dose 100 MLS/HR; Start 09/12/17 at 09:30 Assessment/Plan Additional Assessment/Plan IMP: 1. Acute intracerebral bleed status post ventriculostomy--> with clinical signs of brain 2. Altered mental status secondary to above. 3. Hypoxemic respiratory failure secondary to ICH. 4. Hypoglycemia, possible underlying diabetes mellitus. RECS: 1. Proceed with apnea testing. 2. First reduce RR to 14 and PEEP 5; obtain ABG; 3. Then place on Apnea protocol and obtain ABG in 8-10 minutes 4. Case d/w with senior biostatistician/group leader 35 min cc time DEANNE VELASQUEZ MD Sep 12, 2017 11:47
--- NOTE | 2017-09-12 13:13 | PN ---
Date/Time of Note Date/Time of Note DATE: 09/12/17 TIME: 13:07 Assessment/Plan VTE Prophylaxis VTE Prophylaxis Intervention: SCD's Lines/Catheters IV Catheter Type (from Nrsg): Intraosseous Central line still needed: Yes Urinary Cath still in place: Yes Reason Cath still needed: other (indicate) (critically ill) Assessment/Plan Assessment/Plan 57 yo M admitted following spontaneous right thalamic ICH sp ventriculostomy 11.1, additional drainage catheter placement revision 11.2 and 11.3 PLAN neuro: ICH: EVDs have clotted---no further procedural intervention per neurosurg , cont BP and BG control. AED prophx clinical exam this morning from nursing, pulm, and myself consistent with clinical diagnosis of brain . apnea testing underway to confirm pulm: cont mechanical ventilation CV: BP control as above Endo: insulin drip, a1c 7.6 FEN: TFs Prophx: H2B while intubated, SCDs only for DVT prophx full code critical care time: 30 minutes Subjective 24 Hr Interval Summary Free Text/Dictation per nursing documentation clinical exam now possibly consistent with brain Exam/Review of Systems Vital Signs Vitals Vital Signs Date Time Temp Pulse Resp B/P Pulse Ox O2 Delivery O2 Flow Rate FiO2 09/12/17 12:30 82 14 99/68 98 09/12/17 12:00 99.1 Mechanical Ventilator 09/12/17 12:00 70 Intake and Output 09/11/17 09/11/17 09/12/17 15:00 23:00 07:00 Intake Total 855.0 ml 1026.99 ml 1199.08 ml Output Total 969 ml 835 ml 385 ml Balance -114.0 ml 191.99 ml 814.08 ml Exam intubated off sedation no gag pupils midrange, fixed, no reaction to light no response to pain no rashes Results Result Diagram: 09/12/17 0510 09/12/17 0510 Results 24 hrs Laboratory Tests Test 09/11/17 13:32 09/11/17 14:29 09/11/17 15:20 09/11/17 16:20 Bedside Glucose 109 112 115 116 Test 09/11/17 17:09 09/11/17 18:11 09/11/17 18:33 09/11/17 19:31 Bedside Glucose 125 134 166 Creatine Kinase 91 Creatine Kinase Index 0.2 Creatinine Kinase MB (Mass) < 0.22 Troponin I < 0.012 Test 09/11/17 21:32 09/11/17 23:27 09/12/17 01:53 09/12/17 04:20 Bedside Glucose 146 136 148 150 Test 09/12/17 05:10 09/12/17 06:00 09/12/17 07:00 09/12/17 08:20 White Blood Count 26.4 #H Red Blood Count 3.96 L Hemoglobin 13.0 L Hematocrit 41.4 L Mean Corpuscular Volume 104.5 H Mean Corpuscular Hemoglobin 32.8 Mean Corpuscular Hemoglobin Concent 31.4 L Red Cell Distribution Width 13.8 Platelet Count 108 #L Mean Platelet Volume 10.8 H Neutrophils % Segmented Neutrophils % (Manual) 68 Band Neutrophils % (Manual) 21 H Lymphocytes % Lymphocytes % (Manual) 4 L Monocytes % Monocytes % (Manual) 3 Eosinophils % Eosinophils % (Manual) 1 Basophils % Metamyelocytes % (manual) 1 H Myelocytes % (Manual) 2 H Nucleated Red Blood Cells % 4 H Neutrophils # Neutrophils # (Manual) 19.4 H Band Neutrophils # 5.5 H Absolute Lymphocytes (Manual) 1.0 Lymphocytes # Monocytes # Absolute Monocytes (Manual) 0.7 Eosinophils # Basophils # Metamyelocytes # 0.2 H Myelocytes # 0.5 H Nucleated Red Blood Cells # Platelet Estimate DECREASED Giant Platelets 1 H Sodium Level 153 H Potassium Level 5.5 H Chloride Level 123 H Carbon Dioxide Level 22 Anion Gap 14 Blood Urea Nitrogen 35 H Creatinine 3.19 #H Glucose Level 233 #H Calcium Level 8.1 L Bedside Glucose 179 145 Blood Gas Specimen Source Blood arterial Arterial Blood Date Drawn 09/12/2017 8:35:51 AM Arterial Blood pH (Temp corrected) 7.304 L Arterial Blood pCO2 (Temp correct) 43.1 Arterial Blood pO2 (Temp corrected) 167.0 H Arterial Blood HCO3 20.9 L Arterial Blood Base Excess -5.2 L Arterial Blood Oxygen Saturation 98.9 H Chadd Test ACCEPTAB Arterial Blood Gas Puncture Site Right Radial Arterial Blood Carboxyhemoglobin 0.2 Arterial Blood Methemoglobin 0.4 Blood Gas A-a O2 Differential 358.2 H Oxyhemoglobin Percent 98.3 Total Hemoglobin 13.3 Blood Gas Temperature 37.0 Blood Gas Respiration Rate 20.0 Blood Gas Actual Respiration Rate 20 Blood Gas Modality VENT - AC FiO2 80.0 Blood Gas Tidal Volume 500.0 Blood Gas Low PEEP Setting 10.0 Blood Gas Notified Whom DT Blood Gas Notified Time 09/12/2017 8:54:56 AM Test 09/12/17 10:24 09/12/17 12:16 09/12/17 12:30 Bedside Glucose 127 113 Blood Gas Specimen Source Blood arterial Arterial Blood Date Drawn 09/12/2017 1:00:07 PM Arterial Blood pH (Temp corrected) 7.269 *L Arterial Blood pCO2 (Temp correct) 52.6 H Arterial Blood pO2 (Temp corrected) 97.4 Arterial Blood HCO3 23.6 Arterial Blood Base Excess -3.9 L Arterial Blood Oxygen Saturation 96.9 Chadd Test ACCEPTAB Arterial Blood Gas Puncture Site Right Radial Arterial Blood Carboxyhemoglobin 0.3 Arterial Blood Methemoglobin 0.3 Blood Gas A-a O2 Differential 127.3 H Oxyhemoglobin Percent 96.3 Total Hemoglobin 13.6 Blood Gas Temperature 37.0 Blood Gas Respiration Rate 14.0 Blood Gas Actual Respiration Rate 16 Blood Gas Modality VENT - AC FiO2 40.0 Blood Gas Tidal Volume 500.0 Blood Gas Low PEEP Setting 5.0 Blood Gas Critical Value Read Back BRYAN PINEDA R.N. Blood Gas Notified Whom RT Blood Gas Notified Time 09/12/2017 1:02:54 PM Medications Medications Current Medications Ondansetron HCl (Zofran Inj) 4 mg Q6H PRN IV NAUSEA AND/OR VOMITING; Start 09/09/17 at 23:30 Acetaminophen (Tylenol Supp) 650 mg Q4H PRN [place] PAIN LEVEL 1-3 OR FEVER; Start 09/09/17 at 23:30 Diagnostic Test (Pha) (Accu-Chek) 1 ea 02 XX Last administered on 09/12/17 02: 10; Admin Dose 1 EA; Start 09/10/17 at 02:00 Miscellaneous Information 1 ea 1 ea NOTE XX ; Start 09/09/17 at 23:45 Propofol (Diprivan) 100 ml @ 3 mls/hr Q12H IV Last administered on 09/11/17 00 :06; Admin Dose 24 MLS/HR; Start 09/10/17 at 03:30 Lorazepam (Ativan) 2 mg Q4H PRN IV AGITATION Last administered on 09/10/17 23: 03; Admin Dose 2 MG; Start 09/10/17 at 07:00 Diagnostic Test (Pha) (Accu-Chek) 1 ea Q1H XX Last administered on 09/12/17 12 :19; Admin Dose 1 EA; Start 09/10/17 at 09:00 Dextrose (D50w Syringe) 25 ml Q15M PRN IV Till BS 80 mg/dL or above x2; Start 09/10/17 at 09:00 Dextrose (D50w Syringe) 50 ml Q15M PRN IV Till BS 80 mg/dL or above x2; Start 09/10/17 at 09:00 Famotidine (Pepcid) 20 mg BID GTB Last administered on 09/12/17 09:12; Admin Dose 20 MG; Start 09/10/17 at 21:00 Acetaminophen 650 mg 650 mg Q4H PRN PO PAIN AND OR ELEVATED TEMP Last administered on 09/10/17 23:58; Admin Dose 650 MG; Start 09/11/17 at 00:00 Norepinephrine 16 mg/Dextrose 500 ml @ 1.87 mls/hr TITRATE IV Last administered on 09/11/17 18:26; Admin Dose 9.37 MLS/HR; Start 09/11/17 at 09:00 Dextrose/Sodium Chloride (D5-NS) 1,000 ml @ 100 mls/hr Q10H IV Last administered on 09/12/17 09:27; Admin Dose 100 MLS/HR; Start 09/12/17 at 09:30 NATE TARANGO MD Sep 12, 2017 13:13
--- NOTE | 2017-09-12 15:24 | EN ---
Date/Time of Note Date/Time of Note DATE: 09/12/17 TIME: 15:22 Event Note Medicine Medicine Event Note Results of APNEA TEST as follows: Pre-AB.30; PaCO2 46 Post-AB.46; PaCO2 77 This is a positive apnea test which in addition to the clinical examination confirms brain . DEANNE VELASQUEZ MD Sep 12, 2017 15:24
--- NOTE | 2017-09-12 16:03 | DES ---
Date/Time of Note Date/Time of Note DATE: 09/12/17 TIME: 16:03 Discharge/ Summary Admission/Discharge Info Admit Date/Time Sep 09, 2017 at 23:17 Discharge Date/Time Final Diagnosis intracerebral hemorrhage Preliminary Cause of brain herniation from intracerebral hemorrhage Hx of Present Illness Chief complaint: Sudden onset altered level consciousness The history was obtained from the ED physician documentation as patient was unable to provide history and family was not present during my examination. The patient is a 57-year-old male, presenting to the ER because of sudden onset of altered level consciousness, witnessed by the family who called 911. EMS was called at 1951 , when paramedics arrived, patient had a GCS of 3, he was immediately transported to the emergency department. He was obtunded obtunded, unable to protect his airway. He was therefore intubated immediately. Upon my examination patient remains intubated and connected to the ventilator. Patient was found to have intracranial bleed with mesh shift. Neurosurgery was consulted immediately by the ED and Dr. Montelongo the neurosurgeon is currently at the bedside appearing to perform ventriculostomy. allergies: nkda meds: none Hospital Course 57 yo M admitted following spontaneous right thalamic ICH sp ventriculostomy 11.1, additional drainage catheter placement revision 11.2 and 11.3. Despite aggressive medical management including narrow titration of antihypertensives, insulin drip for tight blood sugar control and surgical intervention noted above , ICH expanded. 11.3 neurosurgery stated that no further procedural intervention would be of benefit given severity of injury. 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 On my examination today, pt's pupils are midline and fixed--no response to light. no corneal reflexes. negative dolls eyes. no gag reflex. no response to pain. Apnea testing was performed and PCO2 aye from 45 to 76. The clinical exam findings and apnea test results confirmed the diagnosis of brain . Pt pronounced at 407pm. Family at bedside. [facility] aware. Pending Labs/Cultures Laboratory Tests Test 09/11/17 16:20 09/11/17 17:09 09/11/17 18:11 09/11/17 18:33 Bedside Glucose 116mg/dL (70-220) 125mg/dL (70-220) 134mg/dL (70-220) Creatine Kinase 91IU/L (23-200) Creatine Kinase Index 0.2 Creatinine Kinase MB (Mass) < 0.22ng/ml (0.0-2.4) Troponin I < 0.012ng/ml (0.00-0.12) Test 09/11/17 19:31 09/11/17 21:32 09/11/17 23:27 09/12/17 01:53 Bedside Glucose 166mg/dL (70-220) 146mg/dL (70-220) 136mg/dL (70-220) 148mg/dL (70-220) Test 09/12/17 04:20 09/12/17 05:10 09/12/17 06:00 09/12/17 07:00 Bedside Glucose 150mg/dL (70-220) 179mg/dL (70-220) White Blood Count 26.410^3/ul (4.8-10.8) Red Blood Count 3.9610^6/ul (4.70-6.10) Hemoglobin 13.0g/dl (14.0-18.0) Hematocrit 41.4% (42.0-52.0) Mean Corpuscular Volume 104.5fl (82.0-101.0) Mean Corpuscular Hemoglobin 32.8pg (29.0-33.0) Mean Corpuscular Hemoglobin Concent 31.4g/dl (32.0-37.0) Red Cell Distribution Width 13.8% (11.5-14.5) Platelet Count 51708^3/UL (140-415) Mean Platelet Volume 10.8fl (7.4-10.4) Neutrophils % % (39.0-77.0) Segmented Neutrophils % (Manual) 68% (39-77) Band Neutrophils % (Manual) 21% (0-4) Lymphocytes % % (15.0-51.0) Lymphocytes % (Manual) 4% (15-51) Monocytes % % (0.0-11.0) Monocytes % (Manual) 3% (0-11) Eosinophils % % (0.0-7.0) Eosinophils % (Manual) 1% (0-7) Basophils % % (0.0-2.0) Metamyelocytes % (manual) 1% (0-0) Myelocytes % (Manual) 2% (0-0) Nucleated Red Blood Cells % 4% (0-0) Neutrophils # 10^3/ul (1.6-7.5) Neutrophils # (Manual) 19.410^3/ul (1.7-7.5) Band Neutrophils # 5.510^3/ul (0.0-0.6) Absolute Lymphocytes (Manual) 1.010^3/ul (0.8-2.9) Lymphocytes # 10^3/ul (0.8-2.9) Monocytes # 10^3/ul (0.3-0.9) Absolute Monocytes (Manual) 0.710^3/ul (0.3-0.9) Eosinophils # 10^3/ul (0.0-0.5) Basophils # 10^3/ul (0.0-0.1) Metamyelocytes # 0.210^3/ul (0.0-0.0) Myelocytes # 0.510^3/ul (0.0-0.0) Nucleated Red Blood Cells # 10^3/ul (0.0-0.0) Platelet Estimate DECREASED Giant Platelets 1% (0-0) Sodium Level 153mmol/L (135-144) Potassium Level 5.5mmol/L (3.5-5.1) Chloride Level 123mmol/L (97-110) Carbon Dioxide Level 22mmol/L (21-31) Anion Gap 14 (8-16) Blood Urea Nitrogen 35mg/dl (7-20) Creatinine 3.19mg/dl (0.61-1.24) Glucose Level 233mg/dl (70-220) Calcium Level 8.1mg/dl (8.4-10.2) Blood Gas Specimen Source Blood arterial Arterial Blood Date Drawn 09/12/2017 8:35:51 AM Arterial Blood pH (Temp corrected) 7.304 (7.350-7.450) Arterial Blood pCO2 (Temp correct) 43.1mmhg (35-45) Arterial Blood pO2 (Temp corrected) 167.0mmHG (80-100.0) Arterial Blood HCO3 20.9mmol/L (22.0-26.0) Arterial Blood Base Excess -5.2mmol/L (-3.0-3) Arterial Blood Oxygen Saturation 98.9mmHG (95.0-98.0) Chadd Test ACCEPTAB Arterial Blood Gas Puncture Site Right Radial Arterial Blood Carboxyhemoglobin 0.2% (0.0-3.0) Arterial Blood Methemoglobin 0.4% (0.0-1.5) Blood Gas A-a O2 Differential 358.2mmHg (7.0-24.0) Oxyhemoglobin Percent 98.3% (93.0-99.0) Total Hemoglobin 13.3g/dl (12.0-18.0) Blood Gas Temperature 37.0C Blood Gas Respiration Rate 20.0 Blood Gas Actual Respiration Rate 20 Blood Gas Modality VENT - AC FiO2 80.0% Blood Gas Tidal Volume 500.0mL Blood Gas Low PEEP Setting 10.0cmH2O Blood Gas Notified Whom DT Blood Gas Notified Time 09/12/2017 8:54:56 AM Test 09/12/17 08:20 09/12/17 10:24 09/12/17 12:16 09/12/17 12:30 Bedside Glucose 145mg/dL (70-220) 127mg/dL (70-220) 113mg/dL (70-220) Blood Gas Specimen Source Blood arterial Arterial Blood Date Drawn 09/12/2017 1:00:07 PM Arterial Blood pH (Temp corrected) 7.269 (7.350-7.450) Arterial Blood pCO2 (Temp correct) 52.6mmhg (35-45) Arterial Blood pO2 (Temp corrected) 97.4mmHG (80-100.0) Arterial Blood HCO3 23.6mmol/L (22.0-26.0) Arterial Blood Base Excess -3.9mmol/L (-3.0-3) Arterial Blood Oxygen Saturation 96.9mmHG (95.0-98.0) Chadd Test ACCEPTAB Arterial Blood Gas Puncture Site Right Radial Arterial Blood Carboxyhemoglobin 0.3% (0.0-3.0) Arterial Blood Methemoglobin 0.3% (0.0-1.5) Blood Gas A-a O2 Differential 127.3mmHg (7.0-24.0) Oxyhemoglobin Percent 96.3% (93.0-99.0) Total Hemoglobin 13.6g/dl (12.0-18.0) Blood Gas Temperature 37.0C Blood Gas Respiration Rate 14.0 Blood Gas Actual Respiration Rate 16 Blood Gas Modality VENT - AC FiO2 40.0% Blood Gas Tidal Volume 500.0mL Blood Gas Low PEEP Setting 5.0cmH2O Blood Gas Critical Value Read Back BRYAN PINEDA R.N. Blood Gas Notified Whom RT Blood Gas Notified Time 09/12/2017 1:02:54 PM Test 09/12/17 13:40 09/12/17 14:21 09/12/17 14:54 Blood Gas Specimen Source Blood arterial Blood arterial Arterial Blood Date Drawn 09/12/2017 1:55:29 PM 09/12/2017 3:01:16 PM Arterial Blood pH (Temp corrected) 7.295 (7.350-7.450) 7.133 (7.350-7.450) Arterial Blood pCO2 (Temp correct) 45.6mmhg (35-45) 76.7mmhg (35-45) Arterial Blood pO2 (Temp corrected) 161.1mmHG (80-100.0) 155.6mmHG (80-100.0) Arterial Blood HCO3 21.7mmol/L (22.0-26.0) 25.1mmol/L (22.0-26.0) Arterial Blood Base Excess -4.8mmol/L (-3.0-3) -5.5mmol/L (-3.0-3) Arterial Blood Oxygen Saturation 98.8mmHG (95.0-98.0) 98.5mmHG (95.0-98.0) Chadd Test ACCEPTAB ACCEPTAB Arterial Blood Gas Puncture Site Right Radial Right Radial Arterial Blood Carboxyhemoglobin 0.3% (0.0-3.0) 0.3% (0.0-3.0) Arterial Blood Methemoglobin 0.3% (0.0-1.5) 0.4% (0.0-1.5) Blood Gas A-a O2 Differential 506.3mmHg (7.0-24.0) 480.7mmHg (7.0-24.0) Oxyhemoglobin Percent 98.2% (93.0-99.0) 97.8% (93.0-99.0) Total Hemoglobin 13.4g/dl (12.0-18.0) 13.3g/dl (12.0-18.0) Blood Gas Temperature 37.0C 37.0C Blood Gas Respiration Rate 18.0 Blood Gas Actual Respiration Rate 18 Blood Gas Modality VENT - AC NASAL CANNULA FiO2 100.0% 100.0% Blood Gas Tidal Volume 500.0mL Blood Gas Low PEEP Setting 5.0cmH2O Blood Gas Critical Value Read Back T MATT MCKEON Blood Gas Notified Whom DT LS Blood Gas Notified Time 09/12/2017 2:12:09 PM 09/12/2017 3:12:11 PM Bedside Glucose 137mg/dL (70-220) NATE TARANGO MD Sep 12, 2017 16:03
--- NOTE | 2017-09-13 01:02 | OPR ---
DATE OF OPERATION: PREOPERATIVE DIAGNOSIS: Intracranial bleed. POSTOPERATIVE DIAGNOSIS: Intracranial bleed. OPERATION PERFORMED: 1. Left subclavian vein central line placement. 2. Left radial arterial line placement. 3. Ultrasound guidance into the central artery. SURGEON: Vy Graham MD ANESTHESIA: Local. CONSENT: Risks, benefits, complications, alternative therapies explained with the nursing staff. _ ___ and we proceeded. OPERATIVE TECHNIQUE: Access was gained in the left subclavian vein. Guidewire was advanced through without any difficulty. Subcutaneous tissues were dilated. Central line advanced over guidewire, secured to skin using silk sutures. All 3 ports of the catheter were aspirated and injected using s patrizia solution. Under ultrasonic guidance, access points gained in the left radial arterial line. A guidewire was a dvanced through without any difficulty. Subcutaneous tissues were dilated and arterial line advance d over guidewire, secured to skin using silk sutures. The patient tolerated both procedures well. Dictated By: VY JOAQUIN/LILIANE Conf#: [id number] DID#: [id number]
--- NOTE | 2017-09-13 01:12 | CONS ---
DATE OF ADMISSION: 09/09/2017 DATE OF CONSULTATION: TYPE OF CONSULTATION: ____. HISTORY OF PRESENT ILLNESS: This is a 57-year-old unfortunate male admitted with intracranial bleed . Subsequently the patient had a ventriculostomy placed by Dr. Montelongo and his neurological status de teriorated and he became a candidate for a [facility] organ donation. PAST MEDICAL HISTORY: Respiratory failure, renal failure, hypertensive emergency, leukocytosis, obe sity, ____. PAST SURGICAL HISTORY: Ventriculostomy. ALLERGIES: NONE. SOCIAL HISTORY: No smoking, drinking or drug use. MEDICATIONS: List reviewed. PHYSICAL EXAMINATION: VITAL SIGNS: Blood pressure is 102/72, pulse is 97, respirations 18, saturations 97% on the ventila tor. GENERAL: Currently, the patient is unresponsive. CARDIOVASCULAR: Normal S1, S2. LUNGS: Clear. ABDOMEN: Soft. EXTREMITIES: Warm. LABORATORY VALUES: Significant for a pH of 7.34, pCO2 of 42, saturation 95% on FiO2 of 100%. IMPRESSION: Intracranial hemorrhage with respiratory failure. RECOMMENDATIONS: We will proceed with the placement of a central line and A-line for [facility]. Di scussed with the nursing staff. Dictated By: VY JOAQUIN/LILIANE Conf#: [id number] DID#: [id number]
--- NOTE | 2017-09-14 08:23 | HKNOTE ---
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 Ishan Montelongo for ventriculostomy. The patient is unresponsive, does not follow simple commands. CTA done for him shows no aneurysm. PHYSICAL EXAMINATION: GENERAL: Today, the patient does not follow any simple commands. CRANIAL NERVES: Cranial nerve II: Pupils with slight reaction to light. Cranial nerve V and VII: Weak corneal reflex. Cranial nerve VIII through XII could not assess. MOTOR: Slight withdrawal in the right upper extremity for painful stimuli. Sensation, coordination and gait could not assess. HEART: Regular rate and rhythm. LUNGS: Equal breath sounds. ABDOMEN: Soft, relaxed. ASSESSMENT AND PLAN: Patient is 57 years old with underlying right thalamic basal ganglia bleeding, status post ventriculostomy tube. 2. underlying seizure. We will follow up the patient with electroencephalogram for more eval uation and treatment. 3. Keep the patient on deep venous thrombosis prophylaxis as well as decubitus ulcer prophylaxis. 4. The patient is with respiratory failure under intubation. Dictated By: DEANNE MONTANA/LILIANE Conf#: [id number] DID#: [id number]
== END 2017-09-12 19:00 | disposition expired | DRG 23 ==
LOC: E/R 20:16 → ICU 23:17
PROVIDERS: ADMIT Family Medicine; ATTEND Family Medicine
PROC: 5A1945Z Respiratory Ventilation, 24-96 Consecutive Hours (ICD-10-PCS; principal; 2017-09-09)
PROC: 009630Z Drainage of Cerebral Ventricle with Drainage Device, Percutaneous Approach (ICD-10-PCS; 2017-09-09)
PROC: 0BH17EZ Insertion of Endotracheal Airway into Trachea, Via Natural or Artificial Opening (ICD-10-PCS; 2017-09-09)
PROC: 00W630Z Revision of Drainage Device in Cerebral Ventricle, Percutaneous Approach (ICD-10-PCS; 2017-09-11)
PROC: 00W630Z Revision of Drainage Device in Cerebral Ventricle, Percutaneous Approach (ICD-10-PCS; 2017-09-11)
PROC: 05H633Z Insertion of Infusion Device into Left Subclavian Vein, Percutaneous Approach (ICD-10-PCS; 2017-09-12)
PROC: B547ZZA Ultrasonography of Left Subclavian Vein, Guidance (ICD-10-PCS; 2017-09-12)
PROC: 03HC33Z Insertion of Infusion Device into Left Radial Artery, Percutaneous Approach (ICD-10-PCS; 2017-09-12)
DX: I61.0 Nontraumatic intracerebral hemorrhage in hemisphere, subcortical (principal); J96.01 Acute respiratory failure with hypoxia; G93.5 Compression of brain; G91.9 Hydrocephalus, unspecified; I95.9 Hypotension, unspecified; I16.1 Hypertensive emergency; T85.890A Other specified complication of nervous system prosthetic devices, implants and grafts, initial encounter; I61.5 Nontraumatic intracerebral hemorrhage, intraventricular; D72.829 Elevated white blood cell count, unspecified; I10 Essential (primary) hypertension; R73.9 Hyperglycemia, unspecified; E66.9 Obesity, unspecified; Z68.34 Body mass index [BMI] 34.0-34.9, adult; E16.2 Hypoglycemia, unspecified; R50.9 Fever, unspecified; Y75.8 Miscellaneous neurological devices associated with adverse incidents, not elsewhere classified; R40.2431 Glasgow coma scale score 3-8, in the field [EMT or ambulance]
CPT/HCPCS: 31500; 36415; 36600; 70450; 70496; 71010; 74000; 80048; 80307; 81001; 82550; 82553; 82803; 82962; 83036; 83615; 83735; 84100; 84443; 84484; 85025; 85610; 85730; 87040; 87081; 87086; 93005; 94002; 94003; 94770; 96374; 96375; C9113; J1815; J1953; J2060; J2150; J3480; J7030; J7042; J7050; J7060; Q9967

== ENCOUNTER 2017-09-12 22:42 | Inpatient (IN) | payer OTHER ==
[~2017-09-12] VITALS: Ht 167.6 cm; Wt 90.2 kg
[2017-09-12 23:15] VITALS: BP 102/72; PULSE 89; RESP 14
[2017-09-12 23:30] VITALS: BP 106/68; PULSE 88; RESP 14
[2017-09-12] MEDS ORDERED: ALBUTEROL HFA 8 GM INHALER INH PRN (23:30)
[2017-09-12] MEDS ORDERED: ALBUTEROL 0.083% (NEB) 2.5 MG/3 ML AMP INH PRN (23:30)
[2017-09-12] MEDS ORDERED: VASOPRESSIN 100 UNIT in SOD CHLORIDE 0.9% 95 ML IV SCH (23:30)
[2017-09-12] MEDS ORDERED: NORepinephrine 8MG/250 ML (PMX 250 ML IV SCH (23:30)
[2017-09-12] MEDS ORDERED: ALBUMIN HUMAN 5% 500 ML IV ONE (23:30)
[2017-09-12] MEDS ORDERED: DOBUTamine/D5W 2 MG/ML DRIP 250 ML IV SCH (23:30)
[2017-09-13] VITALS (70 sets, daily range): BP systolic 95–205; BP diastolic 54–112; PULSE 80–102; RESP 11–18
[2017-09-13] MEDS: ARTIFICIAL TEARS 15 ML OPH BOTH EYES SCH ×12 (00:21→23:26)
[2017-09-13] MEDS: SOD CHLORIDE 0.9% 1,000 ML IV SCH ×2 (00:21→23:15)
--- NOTE | 2017-09-13 01:06 | RADRPT ---
PROCEDURE: XR Chest. CLINICAL INDICATION: Shortness of breath. TECHNIQUE: AP Portable chest. COMPARISON: 09/12/2017 FINDINGS: There is moderate cardiomegaly. There is moderate pulmonary vascular congestion. Some hazy opacitie s are noted within the lung bases. The osseous structures are unremarkable. An endotracheal tube tip is in the mid trachea. A left subclavian central venous catheter is seen wi th tip in the superior vena cava. IMPRESSION: Moderate pulmonary vascular congestion and opacities at the lung bases likely due to pleural effusio ns and atelectasis. RPTAT: HIKT .Shane Lopez MD, MD Date Time Electronically viewed and signed by .Shane Lopez MD, MD on 09/13/2017 01:43 .T/
--- NOTE | 2017-09-13 01:08 | RADRPT ---
PROCEDURE: Abdominal ultrasound. CLINICAL INDICATION: Abdominal pain. TECHNIQUE: Multiple real-time images were acquired of the patient's abdomen and retroperitoneum u tilizing a high resolution transducer. COMPARISON: None FINDINGS: The liver demonstrates increased echogenicity and normal size measuring 16.3 cm. No focal hepatic le christiano is identified. The portal vein is patent. The kidneys are normal size, and demonstrate normal echogenicity and morphology. The right kidney me asures 11.2 x 5.6 x 4.9 cm. The left kidney measures 13.0 x 6.0 x 4.6 cm. There is no dilatation of the pelvicaliceal systems bilaterally. There are no perinephric fluid collections. There is a cyst within the lower pole of the right kidney measuring 1.9 x 1.7 x 1.8 cm. There is a small 3.8 mm echo genic focus within the lower pole of the right kidney. IMPRESSION: Fatty infiltration of the liver. Right renal cyst. Small cortical calcification within the lower pole of the right kidney. .Dante Balderas MD, MD Date Time Electronically viewed and signed by .Dante Balderas MD, MD on 09/13/2017 01:08 .T/
[2017-09-13] MEDS: ALBUMIN HUMAN 5% 250 ML IV SCH ×4 (02:22→03:11)
--- NOTE | 2017-09-13 03:53 | NEURPT ---
DATE: ELECTROENCEPHALOGRAM REFERRING PHYSICIAN: Dr. Andre EEG done using 10-20 International electrode system with photic stimulation. Bilateral occipital hemisphere view showed flat line with electrocardiogram artifact in between. No epileptiform discharge or seizure activity recorded. IMPRESSION: This is abnormal electroencephalogram consistent with severe anoxic encephalopathy, with poor prognosis. Dictated By: DEANNE SAWYER MD NA/NTS Conf#: [id number] DID#: [id number] CC: ISAK ANDRE MD;*EndCC* MTDD
--- NOTE | 2017-09-13 03:53 | NEURPT ---
DATE: ELECTROENCEPHALOGRAM REFERRING PHYSICIAN: Dr. Andre EEG done using 10-20 International electrode system with photic stimulation. Bilateral occipital hemisphere view showed flat line with electrocardiogram artifact in between. No epileptiform discharge or seizure activity recorded. IMPRESSION: This is abnormal electroencephalogram consistent with severe anoxic encephalopathy, with poor prognosis. Dictated By: DEANNE SAWYER MD NA/NTS Conf#: [id number] DID#: [id number] CC: ISAK ANDRE MD;*EndCC* MTDD
--- NOTE | 2017-09-13 03:53 | NEURPT ---
DATE: ELECTROENCEPHALOGRAM REFERRING PHYSICIAN: Dr. Andre EEG done using 10-20 International electrode system with photic stimulation. Bilateral occipital hemisphere view showed flat line with electrocardiogram artifact in between. No epileptiform discharge or seizure activity recorded. IMPRESSION: This is abnormal electroencephalogram consistent with severe anoxic encephalopathy, with poor prognosis. Dictated By: DEANNE SAWYER MD NA/NTS Conf#: [id number] DID#: [id number] CC: ISAK ANDRE MD;*EndCC* MTDD
[2017-09-13] MEDS ORDERED: ALBUMIN HUMAN 25% 100 ML IV ONE ×4 (05:30→19:30)
[2017-09-13] MEDS ORDERED: FUROSEMIDE 40 MG INJ IV ONE ×4 (05:45→19:30)
[2017-09-13] MEDS ORDERED: LABETALOL HCL 20MG INJ IV ONE (08:30)
[2017-09-13] MEDS ORDERED: DEXTROSE 5% IVPB ONE (09:00)
[2017-09-13] MEDS ORDERED: METHYLPRED NA SUCC IVPB ONE (09:00)
[2017-09-13] MEDS: AZITHROMYCIN 500MG/NS (PMX) 250 ML IVPB SCH (09:18)
[2017-09-13] MEDS: INSULIN HUMAN REGULAR 100 UNIT in SOD CHLORIDE 0.9% 99 ML IV SCH ×3 (09:19→19:28)
[2017-09-13] MEDS: niCARdipine 25 MG in SOD CHLORIDE 0.9% 250 ML IV SCH ×2 (10:25→23:23)
--- NOTE | 2017-09-13 11:55 | RADRPT ---
Echocardiogram Report Patient Name: DAMIEN BARROW Gender: Male Date: 1960 Study Date: 13-Sep-2017 Bright Cutter: ABDI Location: 120 Ref. Physician: MARCOS LEE Quality: Good Procedures: Transthoracic echocardiogram with complete 2D, M-Mode, and doppler examination. Indications: Evaluate Left Ventricular function. 2D/M Mode Doppler Measurement Value Normal Ranges Measurement Value Normal Ranges AoR Diam MM 3.2 cm MISAEL Vmax 2.8 cm2 LA/Ao MM 1.3 MISAEL VTI 2.8 cm2 LA Dimen MM 4.0 cm AV Peak Cal 1.0 m/sec LVIDd 2D 5.3 3.5 - 5.6 cm AV Peak PG 3.6 mmHg LVIDs 2D 4.6 2.1 - 4.1 cm LVOT Peak Cal 0.8 m/sec LVPWd 2D 1.2 0.6 - 1.1 cm LVOT Peak PG 2.3 mmHg IVSd 2D 1.2 0.6 - 1.1 cm MV E Peak Cal 0.6 m/sec EDV 2D 137.7 cm3 MV A Peak Cal 0.8 m/sec ESV 2D 94.7 cm3 MV E/A 0.7 EF 2D 35.0 50.0 - 65.0 % MV Decel Time 152 msec LVOT Diam 2.1 cm MV Decel Pender 4 MV E/A 0.7 TR Peak Cal 2.7 m/sec TR Peak PG 28.4 mmHg RVSP 43.0 mmHg RA Pressure 15.0 Findings Left Ventricle: Normal left ventricular cavity size. Moderate left ventricular systolic dysfunction. Ejection fraction is visually estimated at 35 %. Tissue Doppler/Mitral Doppler indices are consistent with impaired relaxation (Stage I diastolic dysfunction). Right Ventricle: Normal right ventricular size. Normal right ventricular systolic function. Left Atrium: Upper limit of normal left atrial size. Right Atrium: The right atrium is normal in size. Mitral Valve: Normal appearance of the mitral valve. Mild mitral annular calcification. Trace mitral regurgitation. Aortic Valve: Normal appearance of the aortic valve. No significant aortic stenosis or insufficiency. Tricuspid Valve: Normal appearance of the tricuspid valve. Estimated peak PA systolic pressure 43 mmHg. There is mild tricuspid regurgitation. Pulmonic Valve: Normal pulmonic valve appearance. Pericardium: Normal pericardium with no significant pericardial effusion. Aorta: Normal aortic root. IVC: Dilated IVC without respiratory collapse, however, patient on ventilator. Conclusions 1.Normal left ventricular cavity size. Moderate left ventricular systolic dysfunction. Ejection fraction is visually estimated at 35 %. Tissue Doppler/Mitral Doppler indices are consistent with impaired relaxation (Stage I diastolic dysfunction). 2.Normal right ventricular size. Normal right ventricular systolic function. 3.Normal appearance of the mitral valve. Mild mitral annular calcification. Trace mitral regurgitation. 4.Normal appearance of the aortic valve. No significant aortic stenosis or insufficiency. 5.Normal appearance of the tricuspid valve. Estimated peak PA systolic pressure 43 mmHg. There is mild tricuspid regurgitation. 6.Moderate Pulmonary Hypertension. 7.Normal pericardium with no significant pericardial effusion. Electronically Signed By: Manjeet Rain 13-Sep-2017 11:54:25 -0800 Patient Name: DAMIEN BARROW Study Date: 13-Sep-2017 [id number]
--- NOTE | 2017-09-13 11:55 | RADRPT ---
Echocardiogram Report Patient Name: DAMIEN BARROW Gender: Male Date: 1960 Study Date: 13-Sep-2017 Assistant Product Manager: ABDI Location: 120 Ref. Physician: MARCOS LEE Quality: Good Procedures: Transthoracic echocardiogram with complete 2D, M-Mode, and doppler examination. Indications: Evaluate Left Ventricular function. 2D/M Mode Doppler Measurement Value Normal Ranges Measurement Value Normal Ranges AoR Diam MM 3.2 cm MISAEL Vmax 2.8 cm2 LA/Ao MM 1.3 MISAEL VTI 2.8 cm2 LA Dimen MM 4.0 cm AV Peak Cal 1.0 m/sec LVIDd 2D 5.3 3.5 - 5.6 cm AV Peak PG 3.6 mmHg LVIDs 2D 4.6 2.1 - 4.1 cm LVOT Peak Cal 0.8 m/sec LVPWd 2D 1.2 0.6 - 1.1 cm LVOT Peak PG 2.3 mmHg IVSd 2D 1.2 0.6 - 1.1 cm MV E Peak Cal 0.6 m/sec EDV 2D 137.7 cm3 MV A Peak Cal 0.8 m/sec ESV 2D 94.7 cm3 MV E/A 0.7 EF 2D 35.0 50.0 - 65.0 % MV Decel Time 152 msec LVOT Diam 2.1 cm MV Decel Hooker 4 MV E/A 0.7 TR Peak Cal 2.7 m/sec TR Peak PG 28.4 mmHg RVSP 43.0 mmHg RA Pressure 15.0 Findings Left Ventricle: Normal left ventricular cavity size. Moderate left ventricular systolic dysfunction. Ejection fraction is visually estimated at 35 %. Tissue Doppler/Mitral Doppler indices are consistent with impaired relaxation (Stage I diastolic dysfunction). Right Ventricle: Normal right ventricular size. Normal right ventricular systolic function. Left Atrium: Upper limit of normal left atrial size. Right Atrium: The right atrium is normal in size. Mitral Valve: Normal appearance of the mitral valve. Mild mitral annular calcification. Trace mitral regurgitation. Aortic Valve: Normal appearance of the aortic valve. No significant aortic stenosis or insufficiency. Tricuspid Valve: Normal appearance of the tricuspid valve. Estimated peak PA systolic pressure 43 mmHg. There is mild tricuspid regurgitation. Pulmonic Valve: Normal pulmonic valve appearance. Pericardium: Normal pericardium with no significant pericardial effusion. Aorta: Normal aortic root. IVC: Dilated IVC without respiratory collapse, however, patient on ventilator. Conclusions 1.Normal left ventricular cavity size. Moderate left ventricular systolic dysfunction. Ejection fraction is visually estimated at 35 %. Tissue Doppler/Mitral Doppler indices are consistent with impaired relaxation (Stage I diastolic dysfunction). 2.Normal right ventricular size. Normal right ventricular systolic function. 3.Normal appearance of the mitral valve. Mild mitral annular calcification. Trace mitral regurgitation. 4.Normal appearance of the aortic valve. No significant aortic stenosis or insufficiency. 5.Normal appearance of the tricuspid valve. Estimated peak PA systolic pressure 43 mmHg. There is mild tricuspid regurgitation. 6.Moderate Pulmonary Hypertension. 7.Normal pericardium with no significant pericardial effusion. Electronically Signed By: Manjeet Rain 13-Sep-2017 11:54:25 -0800 Patient Name: DAMIEN BARROW Study Date: 13-Sep-2017 [id number]
[2017-09-13] MEDS ORDERED: DEXTROSE 50% 50 ML SYRINGE IV ONE (13:00)
--- NOTE | 2017-09-13 13:02 | RADRPT ---
PROCEDURE: XR Chest. CLINICAL INDICATION: Shortness of breath. TECHNIQUE: Single frontal view. COMPARISON: 09/13/2017. 0056 hours. FINDINGS: The endotracheal tube, nasogastric tube, and left subclavian vein catheter remain in satisfactory po sition. There is air space disease in the right mid and lower lung zones consistent with pneumonia, slightly improved. The lungs are otherwise clear. The heart size is normal. There is calcification in the aorta consistent with atherosclerosis. There is no pleural effusion. There is no pneumothorax. IMPRESSION: 1. Slightly improved appearance of right mid and lower lung zone pneumonia. 2. No other change from the prior chest radiograph. RPTAT: QQ .Vel Kong MD, MD Date Time Electronically viewed and signed by .Vel Kong MD, on 09/13/2017 13:02 .R/
[2017-09-13] MEDS ORDERED: DEXTROSE 50% IV SCH (14:00)
[2017-09-13] MEDS ORDERED: POTASSIUM CHLORIDE IV SCH (14:00)
[2017-09-13] MEDS ORDERED: INSULIN HUMAN REGULAR IV SCH (14:00)
[2017-09-13] MEDS: METHYLPRED. NA SUCC 500 MG in DEXTROSE 5% 50 ML IVPB SCH ×2 (15:49→23:50)
--- NOTE | 2017-09-13 18:04 | RADRPT ---
PROCEDURE: XR Chest. CLINICAL INDICATION: Shortness of breath. TECHNIQUE: Single frontal view. COMPARISON: 09/13/2017. 1125 hours. FINDINGS: The endotracheal tube, nasogastric tube, and left subclavian vein catheter remain in satisfactory po sition. There is air space disease in the right mid and lower lung zones consistent with pneumonia, slightly improved. The lungs are otherwise clear. The heart size is normal. There is calcification in the aorta consistent with atherosclerosis. There is no pleural effusion. There is no pneumothorax. IMPRESSION: 1. Slightly improved appearance of the right mid and lower lung zones. 2. No other change from the chest radiograph done earlier the same day. RPTAT: QQ .Vel Kong MD, MD Date Time Electronically viewed and signed by .Vel Kong MD, on 09/13/2017 18:04 .R/
[2017-09-13] MEDS: VASOPRESSIN 60 UNIT in SOD CHLORIDE 0.9% 57 ML IV SCH (18:30)
[2017-09-13] MEDS: POTASSIUM CHLORIDE 50 ML IVPB SCH (21:41)
[2017-09-14] VITALS (52 sets, daily range): BP systolic 140–192; BP diastolic 70–93; PULSE 82–97; RESP 9–20
[2017-09-14] MEDS: POTASSIUM CHLORIDE 50 ML IVPB SCH ×3 (00:26→14:48)
[2017-09-14] MEDS ORDERED: FUROSEMIDE 40 MG INJ IV ONE ×3 (01:00→14:00)
[2017-09-14] MEDS ORDERED: ALBUMIN HUMAN 25% 100 ML IV ONE ×3 (01:00→13:00)
[2017-09-14] MEDS: ARTIFICIAL TEARS 15 ML OPH BOTH EYES SCH ×11 (01:05→23:09)
[2017-09-14] MEDS: INSULIN HUMAN REGULAR 100 UNIT in SOD CHLORIDE 0.9% 99 ML IV SCH ×2 (01:22→06:09)
--- NOTE | 2017-09-14 02:15 | RADRPT ---
PROCEDURE: XR Chest. CLINICAL INDICATION: Donor or management.. TECHNIQUE: Single frontal chest x-ray. COMPARISON: 09/13/2017 FINDINGS: Tracheal tube tip is at the level of clavicles. NG tube tip is in the abdomen. Left subclavian centr al venous line tips in the SVC. Heart is normal in size.. No focal infiltrate is seen. There is no pleural effusion. There is no pneumothorax. The osseous structures are unremarkable. IMPRESSION: No significant change. RPTAT: HMVK .Lam Menendez MD, MD Date Time Electronically viewed and signed by .Lam Menendez MD, MD on 09/14/2017 02:14 .K/
--- NOTE | 2017-09-14 05:21 | RADRPT ---
PROCEDURE: Chest. CLINICAL INDICATION: Organ donor. TECHNIQUE: 2 frontal views of the chest were obtained. COMPARISON: 09/13/2017. FINDINGS: There is an endotracheal tube 6.5 cm above the negin. There is a nasogastric tube extending to the stomach. There is a left subclavian central venous cath extending to the SVC. The cardiac silhouette is within normal limits. The aortic arch is calcified. There is no focal consolidation, vascular congestion or pleural effusion. There is no pneumothorax. IMPRESSION: No evidence for active cardiopulmonary disease. Aortic atherosclerosis. Tubes and line in place. .Dante Balderas MD, MD Date Time Electronically viewed and signed by .Dante Balderas MD, MD on 09/14/2017 05:21 .T/
[2017-09-14] MEDS: DEXTROSE 50% IV SCH (06:13)
[2017-09-14] MEDS: INSULIN HUMAN REGULAR IV SCH (06:13)
[2017-09-14] MEDS: POTASSIUM CHLORIDE IV SCH ×3 (06:13→18:30)
[2017-09-14] MEDS ORDERED: POTASSIUM CHLORIDE 20 MEQ in DEXTROSE 5% 100 ML IV SCH (08:00)
[2017-09-14] MEDS ORDERED: POTASSIUM CHLORIDE 20 MEQ in SOD CHLORIDE 0.9% 100 ML IVPB ONE (08:00)
[2017-09-14] MEDS: METHYLPRED. NA SUCC 500 MG in DEXTROSE 5% 50 ML IVPB SCH ×2 (08:12→16:03)
[2017-09-14] MEDS ORDERED: POTASSIUM CHLORIDE 50 ML IVPB ONE (08:30)
[2017-09-14] MEDS: VASOPRESSIN 60 UNIT in SOD CHLORIDE 0.9% 57 ML IV SCH ×2 (08:31→18:30)
--- NOTE | 2017-09-14 09:07 | RADRPT ---
Echocardiogram Report Patient Name: DAMIEN BARROW Gender: Male Date: 1960 Study Date: 14-Sep-2017 Skidder Driver: Edmundo Young [facility] [[email or web address]] Location: 120 Ref. Physician: MARCOS LEE Quality: Good Procedures: Transthoracic echocardiogram with complete 2D, M-Mode, and doppler examination. Indications: Evaluate Left Ventricular function. 2D/M Mode Doppler Measurement Value Normal Ranges Measurement Value Normal Ranges LVIDd 2D 5.1 3.5 - 5.6 cm AV Peak Cal 1.2 m/sec LVIDs 2D 3.1 2.1 - 4.1 cm AV Peak PG 6.2 mmHg LVPWd 2D 0.9 0.6 - 1.1 cm AI Peak PG 45.8 mmHg IVSd 2D 1.1 0.6 - 1.1 cm AI Peak Cal 3.4 m/sec AoR Diam 2D 3.3 2.0 - 3.7 cm AI PHT 472.5 msec LA Dimen 2D 3.0 2.3 - 4.0 cm LVOT Peak Cal 1.1 m/sec LVOT Peak PG 4.7 mmHg MV E Peak Cal 0.6 m/sec MV A Peak Cal 0.7 m/sec MV E/A 0.8 MV Decel Time 145 msec MV Decel [place] 4 MV E/A 0.8 TR Peak Cal 2.0 m/sec TR Peak PG 15.8 mmHg RVSP 31.0 mmHg Findings Left Ventricle: Normal left ventricular systolic function. Normal left ventricular cavity size. Mild concentric left ventricular hypertrophy. Ejection fraction is visually estimated at 55 %. Tissue Doppler/Mitral Doppler indices are consistent with impaired relaxation (Stage I diastolic dysfunction). Right Ventricle: Normal right ventricular size. Normal right ventricular systolic function. Left Atrium: The left atrium is normal in size. Right Atrium: The right atrium is normal in size. Mitral Valve: Normal appearance of the mitral valve. Mild mitral annular calcification. Trace mitral regurgitation. Aortic Valve: Normal appearance of the aortic valve. No significant aortic stenosis or insufficiency. Tricuspid Valve: Normal appearance of the tricuspid valve. Estimated peak PA systolic pressure 31 mmHg. There is mild tricuspid regurgitation. Pulmonic Valve: Normal pulmonic valve appearance. Pericardium: Normal pericardium with no significant pericardial effusion. Aorta: Normal aortic root. IVC: Dilated IVC without respiratory collapse, however, patient on ventilator. Conclusions Normal left ventricular systolic function. Normal left ventricular cavity size. Mild concentric left ventricular hypertrophy. Ejection fraction is visually estimated at 55 %. Tissue Doppler/Mitral Doppler indices are consistent with impaired relaxation (Stage I diastolic dysfunction). Normal right ventricular size. Normal right ventricular systolic function. Normal appearance of the mitral valve. Mild mitral annular calcification. Trace mitral regurgitation. Normal appearance of the aortic valve. No significant aortic stenosis or insufficiency. Normal appearance of the tricuspid valve. Estimated peak PA systolic pressure 31 mmHg. There is mild tricuspid regurgitation. No Pulmonary Hypertension. Normal pericardium with no significant pericardial effusion. Ejection fraction is now normalized compared to previous study. Electronically Signed By: Manjeet Rain 14-Sep-2017 09:06:30 -0800 Patient Name: DAMIEN BARROW Study Date: 14-Sep-2017 [id number]
--- NOTE | 2017-09-14 09:07 | RADRPT ---
Echocardiogram Report Patient Name: DAMIEN BARROW Gender: Male Date: 1960 Study Date: 14-Sep-2017 Editor Greeting Card: Edmundo Young [facility] Location: 120 Ref. Physician: MARCOS LEE Quality: Good Procedures: Transthoracic echocardiogram with complete 2D, M-Mode, and doppler examination. Indications: Evaluate Left Ventricular function. 2D/M Mode Doppler Measurement Value Normal Ranges Measurement Value Normal Ranges LVIDd 2D 5.1 3.5 - 5.6 cm AV Peak Cal 1.2 m/sec LVIDs 2D 3.1 2.1 - 4.1 cm AV Peak PG 6.2 mmHg LVPWd 2D 0.9 0.6 - 1.1 cm AI Peak PG 45.8 mmHg IVSd 2D 1.1 0.6 - 1.1 cm AI Peak Cal 3.4 m/sec AoR Diam 2D 3.3 2.0 - 3.7 cm AI PHT 472.5 msec LA Dimen 2D 3.0 2.3 - 4.0 cm LVOT Peak Cal 1.1 m/sec LVOT Peak PG 4.7 mmHg MV E Peak Cal 0.6 m/sec MV A Peak Cal 0.7 m/sec MV E/A 0.8 MV Decel Time 145 msec MV Decel [place] 4 MV E/A 0.8 TR Peak Cal 2.0 m/sec TR Peak PG 15.8 mmHg RVSP 31.0 mmHg Findings Left Ventricle: Normal left ventricular systolic function. Normal left ventricular cavity size. Mild concentric left ventricular hypertrophy. Ejection fraction is visually estimated at 55 %. Tissue Doppler/Mitral Doppler indices are consistent with impaired relaxation (Stage I diastolic dysfunction). Right Ventricle: Normal right ventricular size. Normal right ventricular systolic function. Left Atrium: The left atrium is normal in size. Right Atrium: The right atrium is normal in size. Mitral Valve: Normal appearance of the mitral valve. Mild mitral annular calcification. Trace mitral regurgitation. Aortic Valve: Normal appearance of the aortic valve. No significant aortic stenosis or insufficiency. Tricuspid Valve: Normal appearance of the tricuspid valve. Estimated peak PA systolic pressure 31 mmHg. There is mild tricuspid regurgitation. Pulmonic Valve: Normal pulmonic valve appearance. Pericardium: Normal pericardium with no significant pericardial effusion. Aorta: Normal aortic root. IVC: Dilated IVC without respiratory collapse, however, patient on ventilator. Conclusions Normal left ventricular systolic function. Normal left ventricular cavity size. Mild concentric left ventricular hypertrophy. Ejection fraction is visually estimated at 55 %. Tissue Doppler/Mitral Doppler indices are consistent with impaired relaxation (Stage I diastolic dysfunction). Normal right ventricular size. Normal right ventricular systolic function. Normal appearance of the mitral valve. Mild mitral annular calcification. Trace mitral regurgitation. Normal appearance of the aortic valve. No significant aortic stenosis or insufficiency. Normal appearance of the tricuspid valve. Estimated peak PA systolic pressure 31 mmHg. There is mild tricuspid regurgitation. No Pulmonary Hypertension. Normal pericardium with no significant pericardial effusion. Ejection fraction is now normalized compared to previous study. Electronically Signed By: Manjeet Rain 14-Sep-2017 09:06:30 -0800 Patient Name: DAMIEN BARROW Study Date: 14-Sep-2017 [id number]
--- NOTE | 2017-09-14 09:07 | RADRPT ---
Echocardiogram Report Patient Name: DAMIEN BARROW Gender: Male Date: 1960 Study Date: 14-Sep-2017 Stacker And Sorter Operator: Edmundo Young [facility] Location: 120 Ref. Physician: MARCOS LEE Quality: Good Procedures: Transthoracic echocardiogram with complete 2D, M-Mode, and doppler examination. Indications: Evaluate Left Ventricular function. 2D/M Mode Doppler Measurement Value Normal Ranges Measurement Value Normal Ranges LVIDd 2D 5.1 3.5 - 5.6 cm AV Peak Cal 1.2 m/sec LVIDs 2D 3.1 2.1 - 4.1 cm AV Peak PG 6.2 mmHg LVPWd 2D 0.9 0.6 - 1.1 cm AI Peak PG 45.8 mmHg IVSd 2D 1.1 0.6 - 1.1 cm AI Peak Cal 3.4 m/sec AoR Diam 2D 3.3 2.0 - 3.7 cm AI PHT 472.5 msec LA Dimen 2D 3.0 2.3 - 4.0 cm LVOT Peak Cal 1.1 m/sec LVOT Peak PG 4.7 mmHg MV E Peak Cla 0.6 m/sec MV A Peak Cal 0.7 m/sec MV E/A 0.8 MV Decel Time 145 msec MV Decel [place] 4 MV E/A 0.8 TR Peak Cal 2.0 m/sec TR Peak PG 15.8 mmHg RVSP 31.0 mmHg Findings Left Ventricle: Normal left ventricular systolic function. Normal left ventricular cavity size. Mild concentric left ventricular hypertrophy. Ejection fraction is visually estimated at 55 %. Tissue Doppler/Mitral Doppler indices are consistent with impaired relaxation (Stage I diastolic dysfunction). Right Ventricle: Normal right ventricular size. Normal right ventricular systolic function. Left Atrium: The left atrium is normal in size. Right Atrium: The right atrium is normal in size. Mitral Valve: Normal appearance of the mitral valve. Mild mitral annular calcification. Trace mitral regurgitation. Aortic Valve: Normal appearance of the aortic valve. No significant aortic stenosis or insufficiency. Tricuspid Valve: Normal appearance of the tricuspid valve. Estimated peak PA systolic pressure 31 mmHg. There is mild tricuspid regurgitation. Pulmonic Valve: Normal pulmonic valve appearance. Pericardium: Normal pericardium with no significant pericardial effusion. Aorta: Normal aortic root. IVC: Dilated IVC without respiratory collapse, however, patient on ventilator. Conclusions Normal left ventricular systolic function. Normal left ventricular cavity size. Mild concentric left ventricular hypertrophy. Ejection fraction is visually estimated at 55 %. Tissue Doppler/Mitral Doppler indices are consistent with impaired relaxation (Stage I diastolic dysfunction). Normal right ventricular size. Normal right ventricular systolic function. Normal appearance of the mitral valve. Mild mitral annular calcification. Trace mitral regurgitation. Normal appearance of the aortic valve. No significant aortic stenosis or insufficiency. Normal appearance of the tricuspid valve. Estimated peak PA systolic pressure 31 mmHg. There is mild tricuspid regurgitation. No Pulmonary Hypertension. Normal pericardium with no significant pericardial effusion. Ejection fraction is now normalized compared to previous study. Electronically Signed By: Manjeet Rain 14-Sep-2017 09:06:30 -0800 Patient Name: DAMIEN BARROW Study Date: 14-Sep-2017 [id number]
[2017-09-14] MEDS: AZITHROMYCIN 500MG/NS (PMX) 250 ML IVPB SCH (09:30)
--- NOTE | 2017-09-14 10:45 | RADRPT ---
PROCEDURE: XR Chest. CLINICAL INDICATION: Shortness of breath. TECHNIQUE: Single frontal view. COMPARISON: Prior study done earlier the same day. FINDINGS: The lungs are clear. The endotracheal tube, nasogastric tube, and left subclavian vein catheter siri in in satisfactory position. The heart size is normal. There is calcification in the aorta consistent with atherosclerosis. There is no pleural effusion. There is no pneumothorax. IMPRESSION: 1. Atherosclerosis. 2. Tubes and lines in satisfactory position. 3. Otherwise unremarkable chest radiograph. RPTAT: QQ .Vel Kong MD, MD Date Time Electronically viewed and signed by .Vel Kong MD, MD on 09/14/2017 10:45 .R/
[2017-09-14] MEDS: ACETYLCYSTEINE 600 MG CAP PO SCH ×2 (11:28→21:00)
[2017-09-14] MEDS ORDERED: LIDOCAINE 1% (MDV) 20 ML INJ ONE (12:43)
[2017-09-14] MEDS ORDERED: HEPARIN 1000 UNITS/NS (A-LINE) 1,000 ML ONE (12:43)
[2017-09-14] MEDS ORDERED: IODIXANOL LOCM 100 ML BTL ONE (12:43)
[2017-09-14] MEDS ORDERED: POTASSIUM CHLORIDE 50 ML IVPB SCH ×2 (16:30→22:30)
[2017-09-14] MEDS: DEXTROSE 5% IV SCH ×2 (16:30→18:30)
--- NOTE | 2017-09-14 18:52 | RADRPT ---
PROCEDURE: XR Chest. CLINICAL INDICATION: Organ evaluation for donation TECHNIQUE: PA and Lateral views of the chest were obtained. COMPARISON: Chest radiograph dated September 14, 2017 at 10:30 a.m. FINDINGS: Endotracheal tube tip overlying the mid thoracic trachea. Feeding tube coursing beneath the diaphrag m; the tip is outside the field of view. [place] catheter with its tip overlying the right lower lobe pulmonary artery. The heart is normal in size. The lungs are clear with no focal consolidations, pleural effusions, or pneumothorax. The osseous structures are grossly unremarkable. IMPRESSION: 1. No acute cardiopulmonary disease. RPTAT:AAJJ Physician Georgina Date Time Electronically viewed and signed by Physician Georgina on 09/14/2017 17:24 QL/
[2017-09-14] MEDS: SOD CHLORIDE 0.9% 1,000 ML IV SCH (23:15)
[2017-09-15] VITALS (8 sets, daily range): BP systolic 144–208; BP diastolic 76–96; PULSE 93–116; RESP 9–10
[2017-09-15] MEDS: METHYLPRED. NA SUCC 500 MG in DEXTROSE 5% 50 ML IVPB SCH (00:10)
[2017-09-15] MEDS: ARTIFICIAL TEARS 15 ML OPH BOTH EYES SCH ×2 (01:27→03:10)
[2017-09-15] MEDS ORDERED: POTASSIUM CHLORIDE IVPB ONE (01:30)
[2017-09-15] MEDS ORDERED: SOD CHLORIDE 0.9% IVPB ONE (01:30)
[2017-09-15] MEDS ORDERED: POTASSIUM CHLORIDE IVPB SCH ×4 (01:30)
[2017-09-15] MEDS ORDERED: SOD CHLORIDE 0.9% IVPB SCH ×4 (01:30)
[2017-09-15] MEDS: POTASSIUM CHLORIDE IV SCH (02:21)
[2017-09-15] MEDS: DEXTROSE 50% IV SCH (02:21)
[2017-09-15] MEDS: INSULIN HUMAN REGULAR IV SCH (02:21)
--- NOTE | 2017-09-15 02:53 | CARRPT ---
DATE OF PROCEDURE: 09/14/2017 PROCEDURE PERFORMED: Left heart catheterization, selective left and right coronary angiography, rig ht femoral arteriography. DESCRIPTION OF PROCEDURE: The patient was brought to the laboratory chemical assistant and right groin was prepped in a normal sterile fashion, and 10 mL of 1% Xylocaine was infiltrated to the right groin for local anest hesia. Following this part of the procedure, using a modified Seldinger technique, a Cook needle wa s used to puncture the right femoral artery where the 6-[place] sheath was inserted. Following this part of the procedure, using a JL4 catheter, the catheter was advanced over the wire to the aortic r oot and the left main was cannulated. A selective angiography was performed using standard views. Following this part of the procedure, the JL4 catheter was exchanged for a JL5 catheter and advanced to the aortic root and right coronary artery was cannulated, whereupon selective angiography was pe rformed using standard views. Following this part of the procedure, a pigtail was advanced over the wire to the left ventricle and LVEDP was measured. Following this part of the procedure, right fem oral arteriography was performed. CORONARY ANATOMY: 1. Left main was normal, which bifurcated to left anterior descending artery and left circumflex ar valentín. 2. Left anterior descending artery was a medium caliber vessel with a 40% to 50% stenosis in the mi d segment of the left anterior descending artery. The rest of the left anterior descending artery h ad no plaques. 3. Left circumflex artery was a medium caliber vessel which was tortuous with no angiographic evide nce of coronary artery disease. 4. Right coronary artery was a large caliber vessel with no angiographic evidence of coronary arter y disease, dominant system. HEMODYNAMICS: Aortic pressure 172/93 mmHg. LVEDP was measured at 37 mmHg. IMPRESSION: 1. A 40% to 50% stenosis of the mid segment of the left anterior descending artery. 2. Right heart catheterization. Using a Cook needle, femoral venous puncture and a 7-[place]oc[place] sheath was inserted into the femoral vein. Following this part of the procedure, 6-[place]occan [place]-Anna aruna ter was advanced into the RA, RV, PA and wedge. Following this part of the procedure, cardiac outpu t was measured by thermal dilution and the intracardiac pressure was measured. HEMODYNAMICS: Aortic pressure 178/93 mmHg, LV 174/11 mmHg, RV 47/11 mmHg with a mean of 80 mmHg. W edge 28/24 mmHg with a mean of 27 mmHg. PA pressures 43/29 mmHg with a mean of 36 mmHg. Cardiac ou tput 6.61 liters. Cardiac index 3.32 by thermal dilution. RV 42/30 with a mean of 15 mmHg. RA 16/ 13 with a mean of 14 mmHg. After conclusion of the procedure, the [place]-Anna catheter was left in the RV and sheath was also lef t and sutured in. Dictated By: HEAVENLY VENCES MD SR/NTS Conf#: [id number] DID#: [id number] CC: ISAK ANDRE MD;*EndCC*
--- NOTE | 2017-09-15 02:53 | CARRPT ---
DATE OF PROCEDURE: 09/14/2017 PROCEDURE PERFORMED: Left heart catheterization, selective left and right coronary angiography, rig ht femoral arteriography. DESCRIPTION OF PROCEDURE: The patient was brought to the physical laboratory assistant and right groin was prepped in a normal sterile fashion, and 10 mL of 1% Xylocaine was infiltrated to the right groin for local anest hesia. Following this part of the procedure, using a modified Seldinger technique, a Cook needle wa s used to puncture the right femoral artery where the 6-[place] sheath was inserted. Following this part of the procedure, using a JL4 catheter, the catheter was advanced over the wire to the aortic r oot and the left main was cannulated. A selective angiography was performed using standard views. Following this part of the procedure, the JL4 catheter was exchanged for a JL5 catheter and advanced to the aortic root and right coronary artery was cannulated, whereupon selective angiography was pe rformed using standard views. Following this part of the procedure, a pigtail was advanced over the wire to the left ventricle and LVEDP was measured. Following this part of the procedure, right fem oral arteriography was performed. CORONARY ANATOMY: 1. Left main was normal, which bifurcated to left anterior descending artery and left circumflex ar valentín. 2. Left anterior descending artery was a medium caliber vessel with a 40% to 50% stenosis in the mi d segment of the left anterior descending artery. The rest of the left anterior descending artery h ad no plaques. 3. Left circumflex artery was a medium caliber vessel which was tortuous with no angiographic evide nce of coronary artery disease. 4. Right coronary artery was a large caliber vessel with no angiographic evidence of coronary arter y disease, dominant system. HEMODYNAMICS: Aortic pressure 172/93 mmHg. LVEDP was measured at 37 mmHg. IMPRESSION: 1. A 40% to 50% stenosis of the mid segment of the left anterior descending artery. 2. Right heart catheterization. Using a Cook needle, femoral venous puncture and a 7-[place]ib[place] sheath was inserted into the femoral vein. Following this part of the procedure, 6-Djib[place]ian [place]-Anna aruna ter was advanced into the RA, RV, PA and wedge. Following this part of the procedure, cardiac outpu t was measured by thermal dilution and the intracardiac pressure was measured. HEMODYNAMICS: Aortic pressure 178/93 mmHg, LV 174/11 mmHg, RV 47/11 mmHg with a mean of 80 mmHg. W edge 28/24 mmHg with a mean of 27 mmHg. PA pressures 43/29 mmHg with a mean of 36 mmHg. Cardiac ou tput 6.61 liters. Cardiac index 3.32 by thermal dilution. RV 42/30 with a mean of 15 mmHg. RA 16/ 13 with a mean of 14 mmHg. After conclusion of the procedure, the [place]-Anna catheter was left in the RV and sheath was also lef t and sutured in. Dictated By: HEAVENLY VENCES MD SR/NTS Conf#: [id number] DID#: [id number] CC: ISAK ANDRE MD;*EndCC*
--- NOTE | 2017-09-15 02:53 | CARRPT ---
DATE OF PROCEDURE: 09/14/2017 PROCEDURE PERFORMED: Left heart catheterization, selective left and right coronary angiography, rig ht femoral arteriography. DESCRIPTION OF PROCEDURE: The patient was brought to the laborer driver and right groin was prepped in a normal sterile fashion, and 10 mL of 1% Xylocaine was infiltrated to the right groin for local anest hesia. Following this part of the procedure, using a modified Seldinger technique, a Cook needle wa s used to puncture the right femoral artery where the 6-Citizen [place] sheath was inserted. Following this part of the procedure, using a JL4 catheter, the catheter was advanced over the wire to the aortic r oot and the left main was cannulated. A selective angiography was performed using standard views. Following this part of the procedure, the JL4 catheter was exchanged for a JL5 catheter and advanced to the aortic root and right coronary artery was cannulated, whereupon selective angiography was pe rformed using standard views. Following this part of the procedure, a pigtail was advanced over the wire to the left ventricle and LVEDP was measured. Following this part of the procedure, right fem oral arteriography was performed. CORONARY ANATOMY: 1. Left main was normal, which bifurcated to left anterior descending artery and left circumflex ar valentín. 2. Left anterior descending artery was a medium caliber vessel with a 40% to 50% stenosis in the mi d segment of the left anterior descending artery. The rest of the left anterior descending artery h ad no plaques. 3. Left circumflex artery was a medium caliber vessel which was tortuous with no angiographic evide nce of coronary artery disease. 4. Right coronary artery was a large caliber vessel with no angiographic evidence of coronary arter y disease, dominant system. HEMODYNAMICS: Aortic pressure 172/93 mmHg. LVEDP was measured at 37 mmHg. IMPRESSION: 1. A 40% to 50% stenosis of the mid segment of the left anterior descending artery. 2. Right heart catheterization. Using a Cook needle, femoral venous puncture and a 7-Citizen [place] sheath was inserted into the femoral vein. Following this part of the procedure, 6-Citizen [place]-Anna aruna ter was advanced into the RA, RV, PA and wedge. Following this part of the procedure, cardiac outpu t was measured by thermal dilution and the intracardiac pressure was measured. HEMODYNAMICS: Aortic pressure 178/93 mmHg, LV 174/11 mmHg, RV 47/11 mmHg with a mean of 80 mmHg. W edge 28/24 mmHg with a mean of 27 mmHg. PA pressures 43/29 mmHg with a mean of 36 mmHg. Cardiac ou tput 6.61 liters. Cardiac index 3.32 by thermal dilution. RV 42/30 with a mean of 15 mmHg. RA 16/ 13 with a mean of 14 mmHg. After conclusion of the procedure, the [place]-Anna catheter was left in the RV and sheath was also lef t and sutured in. Dictated By: HEAVENLY VENCES MD SR/NTS Conf#: [id number] DID#: [id number] CC: ISAK ANDRE MD;*EndCC*
[2017-09-15] MEDS ORDERED: ACETAZOLAMIDE 500 MG INJ IV ONE (03:00)
[2017-09-15] MEDS ORDERED: FUROSEMIDE 100 MG INJ IV SCH (03:30)
[2017-09-15] MEDS ORDERED: MANNITOL 20% 250 ML IV SCH (03:30)
[2017-09-15] MEDS ORDERED: HEPARIN 1000 UNITS/ML 10 ML INJ ONE (03:43)
--- NOTE | 2017-09-15 14:53 | RADRPT ---
Vent Rate: 79 bpm RR Interval: [address] Interval: 156 msec QRS Duration: 90 msec QT Interval: 386 msec QTC Interval: 442 msec P-R-T [place]: 80 - 62 - 75 degrees Normal sinus rhythm Moderate voltage criteria for LVH, may be normal variant Nonspecific T wave abnormality Abnormal ECG Electronically Signed By: Bud Rios [id number]
--- NOTE | 2017-09-15 14:53 | RADRPT ---
Vent Rate: 79 bpm RR Interval: 0 msec [place] Interval: 156 msec QRS Duration: 90 msec QT Interval: 386 msec QTC Interval: 442 msec P-R-T [place]: 80 - 62 - 75 degrees Normal sinus rhythm Moderate voltage criteria for LVH, may be normal variant Nonspecific T wave abnormality Abnormal ECG Electronically Signed By: Bud Rios [id number]
--- NOTE | 2017-09-15 14:53 | RADRPT ---
Vent Rate: 79 bpm RR Interval: 0 msec SC Interval: 156 msec QRS Duration: 90 msec QT Interval: 386 msec QTC Interval: 442 msec P-R-T [place]: 80 - 62 - 75 degrees Normal sinus rhythm Moderate voltage criteria for LVH, may be normal variant Nonspecific T wave abnormality Abnormal ECG Electronically Signed By: Bud Rios [id number]
== END 2017-09-15 03:15 | disposition expired | DRG 951 ==
LOC: ICU 22:42
PROVIDERS: ADMIT Family Medicine; ATTEND Family Medicine
PROC: B2061ZZ Plain Radiography of Right and Left Heart using Low Osmolar Contrast (ICD-10-PCS; 2017-09-15)
PROC: 4A033BC Measurement of Arterial Pressure, Coronary, Percutaneous Approach (ICD-10-PCS; 2017-09-15)
PROC: 02HQ32Z Insertion of Monitoring Device into Right Pulmonary Artery, Percutaneous Approach (ICD-10-PCS; 2017-09-15)
PROC: 4A133B3 Monitoring of Arterial Pressure, Pulmonary, Percutaneous Approach (ICD-10-PCS; 2017-09-15)
PROC: 4A1239Z Monitoring of Cardiac Output, Percutaneous Approach (ICD-10-PCS; 2017-09-15)
PROC: 4A023N8 Measurement of Cardiac Sampling and Pressure, Bilateral, Percutaneous Approach (ICD-10-PCS; principal; 2017-09-15 03:00)
DX: Z52.89 Donor of other specified organs or tissues (principal)
CPT/HCPCS: 36592; 36600; 71010; 76700; 80053; 81001; 82150; 82247; 82248; 82330; 82550; 82553; 82803; 82962; 82977; 83605; 83615; 83690; 83735; 83930; 84100; 84484; 85025; 85610; 85730; 86850; 86900; 86901; 86920; 87040; 87070; 87086; 89220; 93005; 93306; 93460; 94003; 94770; J1120; J1250; C1769; C1887; C1894; J0456; J1644; J1815; J1940; J2930; J3480; J7030; J7050; P9045; P9047; Q9967